=== PATIENT | female | born 1935 | race Caucasian/White ===

== ENCOUNTER 2017-07-07 15:54 | Inpatient (IN) ==
--- NOTE | 2017-07-07 16:15 | Emergency Department Report ---
Medical Clearance HPI - General Chief complaint: Medical Clearance Stated complaint: Generations Clearance Time Seen by Provider: 07/07/17 16:13 Mode of arrival: wheelchair - History of Present Illness HPI Narrative: 81-year-old female sent in from [facility] for medical clearance for generations. senior living reports "patient is paranoid, having delusions, easily distracted and has been putting towels in the toilet". complaint: medical clearance requested Home medications: Home Medications Medication Instructions Recorded Confirmed Acetaminophen 650 mg PO Q4HR PRN #0 08/30/15 07/07/17 Docusate Sodium 100 mg PO DAILY #0 08/30/15 07/07/17 LORazepam [Ativan] 0.5 mg PO TID #0 09/27/15 07/07/17 Furosemide 40 mg PO DAILY #0 11/09/15 07/07/17 Lactobacillus Acidophilus 2 cap PO TID #0 07/28/16 07/07/17 [Acidophilus Lactobacillus] Levothyroxine Sodium 175 mcg PO ACB #0 07/28/16 07/07/17 Magnesium Hydroxide [Milk of 30 ml PO Q12H PRN #0 07/28/16 07/07/17 Magnesia] Ondansetron [Ondansetron Odt] 4 mg PO Q8H PRN #0 07/30/16 07/07/17 Quetiapine Fumarate [Seroquel] 50 mg PO BID #0 tab 08/20/16 07/07/17 Ciprofloxacin HCl [Cipro] 500 mg PO BID 07/07/17 07/07/17 Previous Rx's Medication Instructions Recorded Sertraline HCl 100 mg PO DAILY 30 Days #30 tab 08/06/16 Divalproex Sodium [Depakote ER] 750 mg PO HS #20 08/30/16 Allergies/Adverse reactions: Allergies Allergy/AdvReac Type Severity Reaction Status Date / Time Penicillins Allergy Mild RASH Verified 11/18/16 01:35 cefuroxime Allergy Unknown Verified 11/18/16 01:35 Review of Systems Limitations: ROS unobtainable due to patient's medical condition PFSH Patient Stated Medical History Dementia Yes Hypertension Yes Chronic Obstructive Pulmonary Yes Disease (COPD) Diabetes Mellitus Type 2 Yes Hx Incontinence Yes Hx Urinary Tract Infection Yes Schizophrenia Yes Other Behavioral Health Yes: MAJOR DEPRESSIVE DISORDER Essential hypertension Hyperlipidemia Parkinson's disease Constipation Dementia Behavioral disturbance Hypothyroidism Diabetes type II Major depressive disorder Generalized anxiety disorder COPD O Way History of malignant neoplasm of breast Paralysis Agitans Constipation History of falls Urinary tract infection Schizophrenia Surgical History: Unable to obtain Family History: Noncontributory - Social History Housing: longterm Current occupational status: retired Physical Exam - Limitations Limitations: no limitations - General General appearance: alert, in no apparent distress - Normal Exams: Head:: Normocephalic without trauma Eyes:: No scleral icterus, irritation ENMT:: No facial trauma, nasal exudates, pharyngeal erythema Chest/Respirations:: Clear all marin, with good airflow, and symmetry bilaterally Cardiovascular:: Regular rate and rhythm, without murmur or gallop Abdomen:: Bowel sounds positive, soft, non-tender, non-distended Musculoskeletal:: No tenderness Integumentary:: No rashes Psychiatric:: appropriate attention - Neck Neck exam: Present: trachea midline - Extremities Exam Extremities exam: Present: pedal edema (1+ bilaterally) - Skin Skin exam: Present: warm, dry - Neurological Exam Neurological exam: Present: alert (to person only) - Psychiatric Psychiatric exam: Present: other (cooperative) Course Vital Signs Temperature 99.1 F 07/07/17 16:00 Respiratory Rate 84 H 07/07/17 16:00 Blood Pressure 174/72 H 07/07/17 16:00 Pulse Oximetry 90 07/07/17 16:00 Temperature 98.6 F 07/11/17 21:53 Pulse Rate 80 07/11/17 21:53 Respiratory Rate 28 H 07/11/17 21:53 Blood Pressure 120/56 07/11/17 21:53 Pulse Oximetry 93 07/11/17 21:53 Medical Clearance - MDM Narrative Medical decision making narrative: WBC unremarkabe Chemistries consistent with previous UA unremarkable CT head no acute findings Patient is medically cleared for Generations Diff. dx. UTI Delirium Depression Anxiety Dementia - Differential Diagnosis Differential Diagnosis Narrative: Diff. dx. Dementia Delirium UTI Dehydration Hyponatremia Depression - Medical Records Attestation: I reviewed the patient's medical records. - Lab Data Attestation: I reviewed the patient's lab results. Result diagrams: 07/07/17 16:37 07/10/17 07:42 Lab Results 07/07/17 07/07/17 07/07/17 Range/Units 16:30 16:30 16:30 WBC (4.5-11.0) T/MM3 RBC (4.00-5.20) M/MM3 Hgb (12-16) GM/DL Hct (36-46) % MCV (80-100) UM3 MCH (26-34) UUG MCHC (31-37) GM/DL RDW Std Deviation (36.9-50.2) FL Plt Count (130-400) T/MM3 MPV (9.4-12.4) UM3 Immature Gran % (Auto) (0.0-0.5) % Neut % (Auto) (33-66) % Lymph % (Auto) (23-45) % [place] % (Auto) (0-9.0) % Eos % (Auto) (0-4) % Baso % (Auto) (0-2) % Neut # (1.8-7.7) T/MM3 Lymph # (1-4.8) T/MM3 [place] # (0-0.8) T/MM3 Eos # (0-0.5) T/MM3 Baso # (0-0.2) T/MM3 Abs Immat Gran (auto) (0.00-0.03) T/MM3 Turbidity (0-20) Sodium (134-144) MEQ/L Potassium (3.6-5) MEQ/L Chloride (98-107) MEQ/L Carbon Dioxide (22-30) MEQ/L Anion Gap (5-15) MEQ/L BUN (7-17) MG/DL Creatinine (0.7-1.2) MG/DL GFR Calculation BUN/Creatinine Ratio (6-26) RATIO Glucose (65-110) MG/DL Hemoglobin A1c (6.1-7.9) % Calculated Osmolality (261-280) MOSM/KG Calcium (8.4-10.2) MG/DL Total Bilirubin (0.20-1.30) MG/DL Icterus Index (0-7) AST (14-36) U/L ALT (9-52) U/L Alkaline Phosphatase (38-126) U/L Total Protein (6.3-8.2) G/DL Albumin (3.5-5.0) G/DL Globulin (2.4-3.6) G/DL Albumin/Globulin Ratio (1.1-2.2) RATIO Prealbumin 22.7 (17.6-36.0) MG/DL Triglycerides 159 H (35-135) MG/DL Cholesterol 320 H (132-199) MG/DL LDL Cholesterol, Calc 254.2 H (66-159) VLDL Cholesterol 31.8 H (0-28) MG/DL HDL Cholesterol 34 L (40-60) MG/DL Cholesterol/HDL Ratio 9.4 H (0-4.0) RATIO Vitamin B12 436 (239-931) PG/ML Folate 15.1 (2.76-20) NG/ML TSH (0.47-4.68) MIU/L Specimen Hemolysis (0-25) Ur Collection Type Urine Color (YELLOW) Urine Clarity Urine pH (5.0-8.0) Ur Specific [place] (1.015-1.025) Urine Protein (NEGATIVE) Urine Glucose (UA) (NEGATIVE) Urine Ketones (NEGATIVE) Urine Occult Blood (NEGATIVE) Urine Nitrate (NEGATIVE) Urine Bilirubin (NEGATIVE) Urine Urobilinogen (NORMAL) EU/DL Ur Leukocyte Esterase (NEGATIVE) Urine RBC (0-3) /HPF Urine WBC (0-5) /HPF Ur Squamous Epith Cells Ur Transition Epith Cell /HPF Urine Bacteria (NEGATIVE) Ur Culture Indicated? RPR (NonReactive) 07/07/17 07/07/17 07/07/17 Range/Units 16:30 16:37 16:37 WBC 7.4 (4.5-11.0) T/MM3 RBC 4.69 (4.00-5.20) M/MM3 Hgb 14.2 (12-16) GM/DL Hct 43.8 (36-46) % MCV 93.4 (80-100) UM3 MCH 30.3 (26-34) UUG MCHC 32.4 (31-37) GM/DL RDW Std Deviation 53.2 H (36.9-50.2) FL Plt Count 270 (130-400) T/MM3 MPV 10.3 (9.4-12.4) UM3 Immature Gran % (Auto) 0.3 (0.0-0.5) % Neut % (Auto) 66.9 H (33-66) % Lymph % (Auto) 20.0 L (23-45) % [place] % (Auto) 10.8 H (0-9.0) % Eos % (Auto) 1.2 (0-4) % Baso % (Auto) 0.8 (0-2) % Neut # 5.0 (1.8-7.7) T/MM3 Lymph # 1.5 (1-4.8) T/MM3 [place] # 0.8 (0-0.8) T/MM3 Eos # 0.1 (0-0.5) T/MM3 Baso # 0.1 (0-0.2) T/MM3 Abs Immat Gran (auto) 0.02 (0.00-0.03) T/MM3 Turbidity < 20 (0-20) Sodium 147 H (134-144) MEQ/L Potassium 4.0 (3.6-5) MEQ/L Chloride 102 (98-107) MEQ/L Carbon Dioxide 33 H (22-30) MEQ/L Anion Gap 12 (5-15) MEQ/L BUN 24.0 H (7-17) MG/DL Creatinine 1.1 (0.7-1.2) MG/DL GFR Calculation 48 BUN/Creatinine Ratio 22 (6-26) RATIO Glucose 117 H (65-110) MG/DL Hemoglobin A1c (6.1-7.9) % Calculated Osmolality 287 H (261-280) MOSM/KG Calcium 9.6 (8.4-10.2) MG/DL Total Bilirubin 0.80 (0.20-1.30) MG/DL Icterus Index < 2 (0-7) AST 38 H (14-36) U/L ALT 40 (9-52) U/L Alkaline Phosphatase 104 (38-126) U/L Total Protein 8.5 H (6.3-8.2) G/DL Albumin 4.4 (3.5-5.0) G/DL Globulin 4.1 H (2.4-3.6) G/DL Albumin/Globulin Ratio 1.1 (1.1-2.2) RATIO Prealbumin (17.6-36.0) MG/DL Triglycerides (35-135) MG/DL Cholesterol (132-199) MG/DL LDL Cholesterol, Calc (66-159) VLDL Cholesterol (0-28) MG/DL HDL Cholesterol (40-60) MG/DL Cholesterol/HDL Ratio (0-4.0) RATIO Vitamin B12 (239-931) PG/ML Folate (2.76-20) NG/ML TSH 15.10 H (0.47-4.68) MIU/L Specimen Hemolysis < 15 (0-25) Ur Collection Type Urine Color (YELLOW) Urine Clarity Urine pH (5.0-8.0) Ur Specific [place] (1.015-1.025) Urine Protein (NEGATIVE) Urine Glucose (UA) (NEGATIVE) Urine Ketones (NEGATIVE) Urine Occult Blood (NEGATIVE) Urine Nitrate (NEGATIVE) Urine Bilirubin (NEGATIVE) Urine Urobilinogen (NORMAL) EU/DL Ur Leukocyte Esterase (NEGATIVE) Urine RBC (0-3) /HPF Urine WBC (0-5) /HPF Ur Squamous Epith Cells Ur Transition Epith Cell /HPF Urine Bacteria (NEGATIVE) Ur Culture Indicated? RPR Non-reactive (NonReactive) 07/07/17 07/07/17 Range/Units 16:37 17:39 WBC (4.5-11.0) T/MM3 RBC (4.00-5.20) M/MM3 Hgb (12-16) GM/DL Hct (36-46) % MCV (80-100) UM3 MCH (26-34) UUG MCHC (31-37) GM/DL RDW Std Deviation (36.9-50.2) FL Plt Count (130-400) T/MM3 MPV (9.4-12.4) UM3 Immature Gran % (Auto) (0.0-0.5) % Neut % (Auto) (33-66) % Lymph % (Auto) (23-45) % [place] % (Auto) (0-9.0) % Eos % (Auto) (0-4) % Baso % (Auto) (0-2) % Neut # (1.8-7.7) T/MM3 Lymph # (1-4.8) T/MM3 [place] # (0-0.8) T/MM3 Eos # (0-0.5) T/MM3 Baso # (0-0.2) T/MM3 Abs Immat Gran (auto) (0.00-0.03) T/MM3 Turbidity (0-20) Sodium (134-144) MEQ/L Potassium (3.6-5) MEQ/L Chloride (98-107) MEQ/L Carbon Dioxide (22-30) MEQ/L Anion Gap (5-15) MEQ/L BUN (7-17) MG/DL Creatinine (0.7-1.2) MG/DL GFR Calculation BUN/Creatinine Ratio (6-26) RATIO Glucose (65-110) MG/DL Hemoglobin A1c 6.5 (6.1-7.9) % Calculated Osmolality (261-280) MOSM/KG Calcium (8.4-10.2) MG/DL Total Bilirubin (0.20-1.30) MG/DL Icterus Index (0-7) AST (14-36) U/L ALT (9-52) U/L Alkaline Phosphatase (38-126) U/L Total Protein (6.3-8.2) G/DL Albumin (3.5-5.0) G/DL Globulin (2.4-3.6) G/DL Albumin/Globulin Ratio (1.1-2.2) RATIO Prealbumin (17.6-36.0) MG/DL Triglycerides (35-135) MG/DL Cholesterol (132-199) MG/DL LDL Cholesterol, Calc (66-159) VLDL Cholesterol (0-28) MG/DL HDL Cholesterol (40-60) MG/DL Cholesterol/HDL Ratio (0-4.0) RATIO Vitamin B12 (239-931) PG/ML Folate (2.76-20) NG/ML TSH (0.47-4.68) MIU/L Specimen Hemolysis (0-25) Ur Collection Type Urine, catheter Urine Color Yellow (YELLOW) Urine Clarity Clear Urine pH 8.0 (5.0-8.0) Ur Specific [place] 1.010 L (1.015-1.025) Urine Protein 1+ A (NEGATIVE) Urine Glucose (UA) Negative (NEGATIVE) Urine Ketones Trace A (NEGATIVE) Urine Occult Blood Negative (NEGATIVE) Urine Nitrate Negative (NEGATIVE) Urine Bilirubin Negative (NEGATIVE) Urine Urobilinogen 1.0 (NORMAL) EU/DL Ur Leukocyte Esterase Negative (NEGATIVE) Urine RBC None seen (0-3) /HPF Urine WBC 1-3 (0-5) /HPF Ur Squamous Epith Cells None seen Ur Transition Epith Cell 0-1 /HPF Urine Bacteria None seen (NEGATIVE) Ur Culture Indicated? Cult not indicated RPR (NonReactive) - Radiology Data Attestation: I reviewed the patient's radiology results. No acute intracranial findings (V-RAD) Disposition Clinical Impression: Medical clearance for psychiatric admission Disposition: 65 To [facility] Condition: Stable - Seen By: midlevel
[2017-07-07] MEDS ORDERED: ONDANSETRON ODT 4 MG TABLET PO PRN (18:43)
[2017-07-07] MEDS ORDERED: HALOPERIDOL 0.5 MG TABLET PO PRN (18:45)
[2017-07-07] MEDS: QUETIAPINE 50 MG TABLET PO SCH (20:04)
[2017-07-07] MEDS ORDERED: LORazepam INTENSOL 1mg/0.5ml ORAL LIQUID SL PRN (20:40)
[2017-07-07] MEDS ORDERED: HALOPERIDOL 1 MG/0.5 ML ORAL LIQUID PO PRN (20:41)
[2017-07-07] MEDS ORDERED: CIPROFLOXACIN 500 MG TABLET PO SCH (21:00)
[2017-07-07] MEDS ORDERED: LACTOBACILLUS (15B cfu) CAPSULE PO SCH (21:00)
[2017-07-07 22:54] VITALS: BMI 37.0
[2017-07-08] MEDS: LEVOTHYROXINE 175 MCG TABLET PO SCH (05:38)
--- NOTE | 2017-07-08 08:14 | CT Scan Report ---
Indication: change in mentation CT head/brain wo con: Comparison: 07/28/2016 Technique: Patient scanned without contrast with dose reduction imaging technology and brain and bone window evaluation. Findings: Patient shows no acute intracranial findings. No suggestion of hemorrhage, midline shift or mass is identified. Similar age compatible atrophic changes identified when compared to the prior study. Bone window evaluation shows no acute bony skull fractures. Visualized sinuses and mastoids were unremarkable. Impression: 1. Stable chronic deep white matter changes with no acute findings such as hemorrhage, midline shift or mass. 2. Findings were communicated to ordering clinician by the V rad service on a callback basis. .
--- NOTE | 2017-07-08 11:27 | History & Physical Report ---
<Hilda Torres - Last Filed: 07/08/17 11:18> History of Present Illness Date: 07/08/17 Chief complaint: Delusions, paranoia, hypernatremia HPI: Chapis Sesay is an 81-year-old female resident from [facility] and [facility] who presented to [facility] emergency department on 07/07/17 for evaluation of altered mental status with acute paranoia and delusions. It is reported that recently she has had increased paranoia and delusions, believing that she was being watched while going to the bathroom and stating that the police were after her. She was diagnosed with an UTI on 07/03/17 and was started on Cipro with no improvement in her behaviors. Upon arrival to the ED, vital signs revealed temperature of 99.1, heart rate 89, respiratory rate 18, blood pressure 132/95 and pulse oximetry 96% on room air. Labs were obtained and revealed WBC 7.4, hemoglobin 14.2 and platelets 270. BMP revealed hypernatremia with sodium at 147, potassium 4.0, BUN 24, SCr 1.1 and nonfasting glucose at 117. She does have a history of type II diabetes. TSH was noted to be elevated at 15.10 with a known history of hypothyroidism. Nursing reports that she picks and chooses which medications she will take which could account for her elevated TSH despite Synthroid listed as a home medication. UA was unremarkable. CT head was obtained and revealed stable chronic deep white matter changes with no acute findings. Due to her paranoia and acute behavioral changes, she underwent screening and was accepted to [facility] for further psychiatric evaluation and treatment. The hospitalist service was consulted for medication management of her chronic and uncontrolled hypothyroidism, acute hypernatremia present on admission and past medical history including hypercholesterolemia, COPD, diabetes and recent UTI. On exam, she is seen while sleeping in her room. She arouses briefly with cold touch and soft voice, but quickly falls back to sleep. She is in no apparent distress. Nursing reports that she has been pleasant since arrival and is pleased to be admitted. Cardiac exam reveals regular rate and rhythm. Lungs are clear to auscultation. Abdomen is soft, nondistended with active bowel sounds. Trace to 1+ edema noted to bilateral lower extremities with bilateral pedal pulses intact. Review of Systems Comprehensive ROS: completed and no additional positive findings except those as stated Review of systems: limited due to patient somnolence. - Constitutional Constitutional: Absent: fever(s) - EENMT Nose: Absent: nosebleeds Mouth/Throat: Absent: dry mouth - Cardiovascular Cardiovascular: Absent: chest pain, syncope Vascular: Absent: pallor of an extermity - Respiratory Respiratory: Absent: cough - Gastrointestinal Gastrointestinal: Present: constipation. Absent: vomiting - Genitourinary Menstruation: post menopausal - Musculoskeletal Musculoskeletal: Absent: deformity - Integumentary/Breasts Integumentary: Absent: rash, jaundice - Neurological Neurological: Absent: convulsions - Psychiatric Psychiatric: Present: anxiety, behavioral changes, difficulty concentrating, paranoia [facility] Patient Stated Medical History Hypercholesterolemia Hypothyroidism Dementia Hypertension COPD Diabetes,Type II Schizoaffective disorder Major Depressive disorder Parkinson's Morbid obesity Constipation Generalized anxiety disorder History of breast cancer CHF Bipolar Osteoarthritis History of UTI History of prior suicide attempt "many years ago". Surgical History: ECT in . - Social History Smoking status: Former smoker Substance use type: does not use Alcohol intake frequency: does not drink Housing: [facility] Social history: PCP - Dr. Haines. Medications Home Medications Medication Instructions Recorded Confirmed Type Acetaminophen 650 mg PO Q4HR PRN #0 08/30/15 07/07/17 History Docusate Sodium 100 mg PO DAILY #0 08/30/15 07/07/17 History LORazepam [Ativan] 0.5 mg PO TID #0 09/27/15 07/07/17 History Furosemide 40 mg PO DAILY #0 11/09/15 07/07/17 History Lactobacillus Acidophilus 2 cap PO TID #0 07/28/16 07/07/17 History [Acidophilus Lactobacillus] Levothyroxine Sodium 175 mcg PO ACB #0 07/28/16 07/07/17 History Magnesium Hydroxide [Milk of 30 ml PO Q12H PRN #0 07/28/16 07/07/17 History Magnesia] Ondansetron [Ondansetron Odt] 4 mg PO Q8H PRN #0 07/30/16 07/07/17 History Quetiapine Fumarate [Seroquel] 50 mg PO BID #0 tab 08/20/16 07/07/17 History Ciprofloxacin HCl [Cipro] 500 mg PO BID 07/07/17 07/07/17 History Allergies Allergy/AdvReac Type Severity Reaction Status Date / Time Penicillins Allergy Mild RASH Verified 11/18/16 01:35 cefuroxime Allergy Unknown Verified 11/18/16 01:35 Exam Vital Signs: Temperature 97.8 F 07/07/17 18:43 Pulse Rate 89 07/07/17 18:43 Respiratory Rate 18 07/07/17 18:43 Blood Pressure 132/95 H 07/07/17 18:43 Pulse Oximetry 96 07/07/17 18:43 Oxygen Delivery Method Room Air Height: 5 ft 1 in Weight: 196 lb 6.91 oz Body Mass Index: 37.0 - Constitutional Present: no acute distress, well nourished, well developed, morbidly obese, somnolent - Routine HEENT Exam Head: Present: normocephalic, atraumatic ENT: Present: mucous membranes moist Comments: limited exam due to patient sleeping; dentures not present on exam. - Routine Neck Exam Present: supple, trachea midline - Routine Respiratory Exam Present: CTA bilaterally. Absent: stridor, wheezes, crackles - Routine Cardiovascular Exam Present: RRR, S1, S2, no murmur - Routine Abdominal Exam Present: soft, normoactive bowel sounds, non distended - Routine Extremities Exam Present: no edema, pulses intact. Absent: cyanosis, clubbing - Routine Back/Spine/Pelvis Exam Back/Spine: Absent: erythema - Routine Skin Exam Present: dry, warm. Absent: jaundice Comments: afebrile - Routine Neurological Exam Present: moving all extremities sleeping - Routine Psychiatric Exam Comments: somnolent Results - Labs CBC & Chem 7: 07/07/17 16:37 07/07/17 16:37 Assessment and Plan (1) Dementia with behavioral disturbance Current visit: Yes Status: Acute (2) Schizoaffective disorder Current visit: Yes Status: Chronic (3) Major depressive disorder Current visit: Yes Status: Chronic (4) Generalized anxiety disorder Current visit: Yes Status: Chronic (5) Acute hypernatremia Current visit: Yes Status: Acute Resuscitation Status: Full Code Assessment and Plan: 07/08/17 Melissa. Impression: Dementia with behavioral changes, paranoia and delusions, acute, present on admission. * Agree with the admission to [facility] for continued psychiatric evaluation and treatment. Provide safe and supportive environment. PRN medications as indicated Hypernatremia, acute, present on admission. * Sodium elevated on admission at 147. Encourage oral fluid intake. Recheck BMP on 07/10 to monitor electrolytes and renal function. Monitor throughout admission. Elevated TSH, acute on chronic, present on admission. * TSH elevated at 15.10 on admission. Nursing reports that patient has been selectively choosing which meds she will be compliant with. Suspect elevation is due to medication noncompliance. Will recheck on 07/14 for down trending after consistent treatment. If TSH remains elevated, consider dose adjustment at that time. UTI, acute, present prior to admission. * UTI diagnosed on 07/03 and treatment with Cipro initiated. Culture from 07/03 showed E. coli with multiresistance to sulfa and ampicillin. Cipro to be completed on 07/10. UA on admission was unremarkable. Recommend completion of treatment to avoid resistance. Schizoaffective disorders, chronic. * Treatment per psychiatric team. Major depressive disorder, chronic. * Treatment per psychiatric team. Hypertension, chronic. * Blood pressure fairly well controlled. Continue to monitor closely. Continue home Lasix 40mg. Hypercholesterolemia, possible new diagnosis. * Lipid panel on admission revealed hypercholesterolemia with total cholesterol 320. No current home treatment. Will initiate lovastatin and recommend follow up as outpatient with PCP following discharge. Diabetes, Type II, chronic. * No home treatment listed. Will provide carb controlled diet and check A1c now to assess for glucose control. Monitor BGMs in AM and HS. COPD, chronic. * No current treatment required. Monitor respiratory function closely. CHF, chronic. * Continue home Lasix 40mg daily. Monitor closely for fluid overload and monitor daily weights. Constipation, chronic. * Continue home Colace and lactobacillus. Miralax and MOM as needed. Parkinson's, chronic. * Monitor for gait instability. Upon discharge, patient's care will be returned to her PCP. - Time spent with patient greater than 35 minutes Sepsis Assessment - Evaluation Sepsis screening result: No Definite Risk Hospital Course Summary Disclaimer: The visit summary below is not to be considered part of the above Progress Note. Hospital Course: 07/08/17 11:59 Impression: Dementia with behavioral changes, paranoia and delusions, acute, present on admission. * Agree with the admission to [facility] unit for continued psychiatric evaluation and treatment. Provide safe and supportive environment. PRN medications as indicated Hypernatremia, acute, present on admission. * Sodium elevated on admission at 147. Encourage oral fluid intake. Recheck BMP on 07/10 to monitor electrolytes and renal function. Monitor throughout admission. Elevated TSH, acute on chronic, present on admission. * TSH elevated at 15.10 on admission. Nursing reports that patient has been selectively choosing which meds she will be compliant with. Suspect elevation is due to medication noncompliance. Will recheck on 07/14 for down trending after consistent treatment. If TSH remains elevated, consider dose adjustment at that time. UTI, acute, present prior to admission. * UTI diagnosed on 07/03 and treatment with Cipro initiated. Culture from 07/03 showed E. coli with multiresistance to sulfa and ampicillin. Cipro to be completed on 07/10. UA on admission was unremarkable. Recommend completion of treatment to avoid resistance. Schizoaffective disorders, chronic. * Treatment per psychiatric team. Major depressive disorder, chronic. * Treatment per psychiatric team. Hypertension, chronic. * Blood pressure fairly well controlled. Continue to monitor closely. Continue home Lasix 40mg. Hypercholesterolemia, possible new diagnosis. * Lipid panel on admission revealed hypercholesterolemia with total cholesterol 320. No current home treatment. Will initiate lovastatin and recommend follow up as outpatient with PCP following discharge. Diabetes, Type II, chronic. * No home treatment listed. Will provide carb controlled diet and check A1c now to assess for glucose control. Monitor BGMs in AM and HS. COPD, chronic. * No current treatment required. Monitor respiratory function closely. CHF, chronic. * Continue home Lasix 40mg daily. Monitor closely for fluid overload and monitor daily weights. Constipation, chronic. * Continue home Colace and lactobacillus. Miralax and MOM as needed. Parkinson's, chronic. * Monitor for gait instability. Upon discharge, patient's care will be returned to her PCP. <Shreyas Lopez - Last Filed: 07/08/17 21:08> History of Present Illness Date: 07/08/17 [facility] Patient Stated Medical History Dementia Yes Parkinson's Disease Yes Dental Problems Yes: dentures Congestive Heart Failure Yes Hypertension Yes Chronic Obstructive Pulmonary Yes Disease (COPD) Diabetes Mellitus Type 2 Yes Hx Incontinence Yes Hx Urinary Tract Infection Yes Schizophrenia Yes Exam Vital Signs: Temperature 98.9 F 07/08/17 19:19 Pulse Rate 89 07/08/17 19:19 Respiratory Rate 14 07/08/17 19:19 Blood Pressure 135/63 07/08/17 19:19 Pulse Oximetry 91 07/08/17 19:19 Oxygen Delivery Method Room Air Height: 1.55 m Weight: 89.1 kg Results - Labs CBC & Chem 7: 07/07/17 16:37 07/07/17 16:37 Assessment and Plan (1) Dementia with behavioral disturbance Current visit: Yes Status: Acute (2) Schizoaffective disorder Current visit: Yes Status: Chronic (3) Major depressive disorder Current visit: Yes Status: Chronic (4) Generalized anxiety disorder Current visit: Yes Status: Chronic (5) Acute hypernatremia Current visit: Yes Status: Acute Assessment and Plan: Have independently interviewed and examined pt. Chart reviewed. Case discussed with my PA. Above care plan developed with my supervision; agree with above. Admitted to [facility] for behavioral changes, paranoia, and delusions. Saw patient when she was sitting in day room. Pt did keep seeing 'lights moving' - likely was the traffic exiting from [address] onto [address]. Constantly mumbling- word salad, but would be able to briefly engage in very limited conversation. Obtaining meaningful information from patient not possible at this time. Lungs: clear bilaterally. No distress on room air. CV: regular AB: soft, obese, NT/ND +BS MSE: awake, restless but not agitated. Plan: Agree with admission of patient to [facility] for further psychiatric evaluation and treatment. Psychiatry will manage and adjust psychoactive medications. Restart Thyroid medication-likely pt's nonadherence causing elevation. Uncertain if will be able to see much change in TSH levels in 1 week; but if trending downward would not recommend adjusting dose. Will need recheck TSH once patient has been faithfully on medication dose for 6 week. Urine showing no evidence of infection; with prior drug resistance noted, would be prudent to complete course of ciprofloxacin but due have concern that this medication could potentiate delirium-hope to stop as soon as able. Monitor sugars-A1c showing good overall control of blood sugars; if sugars showing stability could decrease sugar check to minimize patient discomfort. Encourage [facility] group activities. Medically stable for [facility] floor care. Hospital Course Summary Disclaimer: The visit summary below is not to be considered part of the above Progress Note.
[2017-07-08] MEDS: SERTRALINE 100 MG TABLET PO SCH (12:28)
[2017-07-08] MEDS: QUETIAPINE 50 MG TABLET PO SCH ×2 (12:28→19:37)
[2017-07-08] MEDS: LACTOBACILLUS (15B cfu) CAPSULE PO SCH ×2 (12:28→17:09)
[2017-07-08] MEDS: FUROSEMIDE 40 MG TABLET PO SCH (12:28)
[2017-07-08] MEDS: DOCUSATE SODIUM 100 MG CAPSULE PO SCH (12:28)
--- NOTE | 2017-07-08 19:06 | 24 Hour Neuropsychiatic Eval ---
Date of Admission: 07/07/17 17:41 Chief complaint: "Move" History of Present Illness: HPI: 81 Y/O CF with a hx of Schizoaffective Disorder sent from [facility] with acute mental status changes and increasing paranoia and delusions. Pt was noted to have a UTI recently but it appears the psychotic symptoms have been worsening for sometime. Nursing reports pt slept well and has had a good appetite. On face to face the pt is pleasant. She is only oriented to self. She scored a 5 on her SLUMS and is a poor historian. Her speech is disorganized and mumbled and we are unable to get an adequate hx at this time. She denies pain and does not appear to be in any distress. PAST PSYCH: Pt has a hx of Schizoaffective D/O and cognitive impairment. She is on Depakote, Seroquel, and Zoloft. She was recently on our unit for similar symptoms. [facility] Patient Stated Medical History Dementia Yes Parkinson's Disease Yes Dental Problems Yes: dentures Congestive Heart Failure Yes Hypertension Yes Chronic Obstructive Pulmonary Yes Disease (COPD) Diabetes Mellitus Type 2 Yes Hx Incontinence Yes Hx Urinary Tract Infection Yes Schizophrenia Yes Surgical History: ECT in . - Social History Smoking status: Former smoker Current residence: [facility] Review of Systems - [place] Nose: Absent: nosebleeds Mouth/Throat: Absent: dry mouth - Cardiovascular Vascular: Absent: pallor of an extermity - Genitourinary Menstruation: post menopausal - Psychiatric Psychiatric: Present: behavioral changes Mental Status Exam Vitals: Last Vital Signs Temp 99.2 F 07/08/17 16:27 Pulse 88 07/08/17 16:27 Resp 21 07/08/17 16:27 BP 133/67 07/08/17 16:27 Pulse Ox 92 07/08/17 16:27 Height: 1.55 m Weight: 89.1 kg - Mental Status Exam Muscle Strength/Tone: Normal Dressing: Casual Grooming: Good Attitude: Guarded Motor Activity: Retardation Eye Contact: Fair Speech: Slowed Volume: Soft Rhythm: Slurred Orientation: Oriented to person Mood: Neutral Affect: Bright Rate of Thoughts: Delayed Thought Organization: Disorganized Associations: Flight of Ideas Thought Content: Delusions Perception/Psychotic: Psychotic Language: Naming Impaired Fund of Knowledge: Poor fund of knowledge Memory: Poor-immediate, Poor-recent Suicidal Ideation: None Homicidal Ideation: None Insight: Poor Judgement: Poor Impulse Control: Poor - Laboratory Result Diagrams: 07/07/17 16:37 07/07/17 16:37 Assessment and Plan (1) Schizoaffective disorder Qualifiers: Schizoaffective disorder type: bipolar Qualified Code(s): F25.0 - Schizoaffective disorder, bipolar type Current visit: Yes Status: Chronic Will continue home meds at this time. Will review old records.
[2017-07-08] MEDS: LOVASTATIN 20 MG TABLET PO SCH (19:37)
[2017-07-08] MEDS: CIPROFLOXACIN 500 MG TABLET PO SCH (19:37)
[2017-07-09] MEDS: LEVOTHYROXINE 175 MCG TABLET PO SCH ×2 (06:02→07:49)
[2017-07-09] MEDS: CIPROFLOXACIN 500 MG TABLET PO SCH ×3 (06:05→20:48)
[2017-07-09] MEDS: LACTOBACILLUS (15B cfu) CAPSULE PO SCH ×3 (07:49→17:26)
[2017-07-09] MEDS: FUROSEMIDE 40 MG TABLET PO SCH ×2 (07:49→09:03)
[2017-07-09] MEDS: DOCUSATE SODIUM 100 MG CAPSULE PO SCH ×2 (07:49→09:02)
[2017-07-09] MEDS: QUETIAPINE 50 MG TABLET PO SCH ×3 (07:50→20:48)
[2017-07-09] MEDS: SERTRALINE 100 MG TABLET PO SCH ×2 (07:50→09:03)
[2017-07-09] MEDS ORDERED: Bisacodyl EC TAB 5 MG TABLET PO PRN (10:04)
--- NOTE | 2017-07-09 15:27 | XRay Report ---
Indication: mental status change PROCEDURE: XR chest 1V: Encounter: Initial Comparison: Two-view chest, 02/03/2017 Findings: There is cardiac megaly, pulmonary vascular engorgement, and diffuse interstitial changes somewhat increased relative to the chronic changes noted previously. Left side is more involved than the right. Findings are consistent with congestive heart failure with interstitial edema. Synovial osteochondromatosis of the right shoulder and degenerative changes of the bony elements. Impression: Congestive heart failure with interstitial edema. .
--- NOTE | 2017-07-09 18:49 | Neuropsych Progress Note ---
[facility] Subjective Date: 07/09/17 - Sujective/Severity of Illness Medications: Bisacodyl (Dulcolax) 10 mg PO DAILY PRN PRN Reason: Constipation Ciprofloxacin (Cipro) 500 mg PO BID/E [facility] Stop: 07/10/17 23:59 Last Admin: 07/09/17 07:48 Dose: 500 mg Divalproex Sodium (Depakote Er) 750 mg PO 2100 [facility] Last Admin: 07/08/17 19:37 Dose: 750 mg Docusate Sodium (Colace) 100 mg PO DAILY [facility] Last Admin: 07/09/17 09:02 Dose: Not Given Furosemide (Lasix) 40 mg PO DAILY [facility] Last Admin: 07/09/17 09:03 Dose: Not Given Haloperidol (Haldol) 0.5 mg PO Q6H PRN PRN Reason: Extreme agitation Haloperidol Decanoate (Haldol Liquid) 0.5 mg PO Q6H PRN PRN Reason: Anxiety/Agitation Haloperidol Lactate (Haldol) 0.5 mg IM Q6H PRN PRN Reason: Extreme agitation Lactobacillus Acidophilus (Culturelle) 2 cap PO TIDWM [facility] Last Admin: 07/09/17 17:26 Dose: 2 cap Levothyroxine Sodium (Synthroid) 175 mcg PO ACB [facility] Last Admin: 07/09/17 07:49 Dose: 175 mcg Lorazepam (Ativan) 0.5 mg PO Q6H PRN PRN Reason: Extreme agitation Lorazepam (Ativan Inj) 0.5 mg IM Q6H PRN PRN Reason: Extreme agitation Lorazepam (Ativan Intensol) 0.5 mg SL Q6H PRN PRN Reason: Anxiety/Agitation Lovastatin (Mevacor) 20 mg PO HS [facility] Last Admin: 07/08/17 19:37 Dose: 20 mg Magnesium Hydroxide (Mom) 30 ml PO DAILY PRN PRN Reason: Constipation Ondansetron HCl (Zofran Po) 4 mg PO Q8H PRN PRN Reason: NAUSEA & VOMITING Quetiapine Fumarate (Seroquel) 50 mg PO BID [facility] Last Admin: 07/09/17 09:03 Dose: Not Given Sertraline HCl (Zoloft) 100 mg PO DAILY [facility] Last Admin: 07/09/17 09:03 Dose: Not Given Subjective: Pt seen and chart examined. Nursing reports pt remains irritable and angry at times. Continues to focus on toileting. Sleeping and eating well. On face to face the pt is somewhat irritable. She is only oriented to self. Denies pain. Tolerating meds. Start Time: 17:15 Stop Time: 17:30 Mental Status Exam Vitals: Last Vital Signs Temp 99.0 F 07/09/17 16:00 Pulse 83 07/09/17 16:00 Resp 18 07/09/17 16:00 BP 122/75 07/09/17 16:00 Pulse Ox 92 07/09/17 16:00 Height: 1.55 m Weight: 88.7 kg - Mental Status Exam Muscle Strength/Tone: Normal Dressing: Casual Grooming: Good Attitude: Guarded Motor Activity: Retardation Eye Contact: Fair Speech: Slowed Volume: Soft Rhythm: Slurred Orientation: Oriented to person Mood: Neutral Rate of Thoughts: Delayed Thought Organization: Disorganized Associations: Flight of Ideas Thought Content: Delusions Perception/Psychotic: Psychotic Language: Naming Impaired Fund of Knowledge: Poor fund of knowledge Memory: Poor-immediate, Poor-recent Suicidal Ideation: None Homicidal Ideation: None Insight: Poor Judgement: Poor Impulse Control: Poor - Laboratory Result Diagrams: 07/07/17 16:37 07/07/17 16:37 Assessment and Plan (1) Schizoaffective disorder Qualifiers: Schizoaffective disorder type: bipolar Qualified Code(s): F25.0 - Schizoaffective disorder, bipolar type Current visit: Yes Status: Chronic Hospital Course Summary Disclaimer: The visit summary below is not to be considered part of the above Progress Note. Hospital Course: 07/08/17 11:59 Impression: Dementia with behavioral changes, paranoia and delusions, acute, present on admission. * Agree with the admission to [facility] unit for continued psychiatric evaluation and treatment. Provide safe and supportive environment. PRN medications as indicated Hypernatremia, acute, present on admission. * Sodium elevated on admission at 147. Encourage oral fluid intake. Recheck BMP on 07/10 to monitor electrolytes and renal function. Monitor throughout admission. Elevated TSH, acute on chronic, present on admission. * TSH elevated at 15.10 on admission. Nursing reports that patient has been selectively choosing which meds she will be compliant with. Suspect elevation is due to medication noncompliance. Will recheck on 07/14 for down trending after consistent treatment. If TSH remains elevated, consider dose adjustment at that time. UTI, acute, present prior to admission. * UTI diagnosed on 07/03 and treatment with Cipro initiated. Culture from 07/03 showed E. coli with multiresistance to sulfa and ampicillin. Cipro to be completed on 07/10. UA on admission was unremarkable. Recommend completion of treatment to avoid resistance. Schizoaffective disorders, chronic. * Treatment per psychiatric team. Major depressive disorder, chronic. * Treatment per psychiatric team. Hypertension, chronic. * Blood pressure fairly well controlled. Continue to monitor closely. Continue home Lasix 40mg. Hypercholesterolemia, possible new diagnosis. * Lipid panel on admission revealed hypercholesterolemia with total cholesterol 320. No current home treatment. Will initiate lovastatin and recommend follow up as outpatient with PCP following discharge. Diabetes, Type II, chronic. * No home treatment listed. Will provide carb controlled diet and check A1c now to assess for glucose control. Monitor BGMs in AM and HS. COPD, chronic. * No current treatment required. Monitor respiratory function closely. CHF, chronic. * Continue home Lasix 40mg daily. Monitor closely for fluid overload and monitor daily weights. Constipation, chronic. * Continue home Colace and lactobacillus. Miralax and MOM as needed. Parkinson's, chronic. * Monitor for gait instability. Upon discharge, patient's care will be returned to her PCP.
[2017-07-09] MEDS: HALOPERIDOL 5 MG/ML INJECTION IM PRN (19:46)
[2017-07-09] MEDS: LOVASTATIN 20 MG TABLET PO SCH (20:48)
[2017-07-10] MEDS: LACTOBACILLUS (15B cfu) CAPSULE PO SCH ×3 (08:39→17:04)
[2017-07-10] MEDS: CIPROFLOXACIN 500 MG TABLET PO SCH ×2 (08:39→20:05)
[2017-07-10] MEDS: LEVOTHYROXINE 175 MCG TABLET PO SCH (08:39)
[2017-07-10] MEDS: FUROSEMIDE 40 MG TABLET PO SCH (08:40)
[2017-07-10] MEDS: QUETIAPINE 50 MG TABLET PO SCH ×3 (08:40→20:08)
[2017-07-10] MEDS: DOCUSATE SODIUM 100 MG CAPSULE PO SCH (08:40)
[2017-07-10] MEDS: SERTRALINE 100 MG TABLET PO SCH (08:41)
--- NOTE | 2017-07-10 18:19 | Neuropsych Progress Note ---
Randolph Subjective Date: 07/10/17 - Sujective/Severity of Illness Medications: Bisacodyl (Dulcolax) 10 mg PO DAILY PRN PRN Reason: Constipation Ciprofloxacin (Cipro) 500 mg PO BID/E [facility] Stop: 07/10/17 23:59 Last Admin: 07/10/17 08:39 Dose: 500 mg Divalproex Sodium (Depakote Er) 750 mg PO 2100 [facility] Last Admin: 07/09/17 20:48 Dose: 750 mg Docusate Sodium (Colace) 100 mg PO DAILY [facility] Last Admin: 07/10/17 08:40 Dose: 100 mg Furosemide (Lasix) 40 mg PO DAILY [facility] Last Admin: 07/10/17 08:40 Dose: 40 mg Haloperidol (Haldol) 0.5 mg PO Q6H PRN PRN Reason: Extreme agitation Haloperidol Decanoate (Haldol Liquid) 0.5 mg PO Q6H PRN PRN Reason: Anxiety/Agitation Haloperidol Lactate (Haldol) 0.5 mg IM Q6H PRN PRN Reason: Extreme agitation Last Admin: 07/09/17 19:46 Dose: 0.5 mg Lactobacillus Acidophilus (Culturelle) 2 cap PO TIDWM [facility] Last Admin: 07/10/17 17:04 Dose: 2 cap Levothyroxine Sodium (Synthroid) 175 mcg PO ACB [facility] Last Admin: 07/10/17 08:39 Dose: 175 mcg Lorazepam (Ativan) 0.5 mg PO Q6H PRN PRN Reason: Extreme agitation Lorazepam (Ativan Inj) 0.5 mg IM Q6H PRN PRN Reason: Extreme agitation Last Admin: 07/09/17 19:46 Dose: 0.5 mg Lorazepam (Ativan Intensol) 0.5 mg SL Q6H PRN PRN Reason: Anxiety/Agitation Lovastatin (Mevacor) 20 mg PO 2100 [facility] Magnesium Hydroxide (Mom) 30 ml PO DAILY PRN PRN Reason: Constipation Ondansetron HCl (Zofran Po) 4 mg PO Q8H PRN PRN Reason: NAUSEA & VOMITING Quetiapine Fumarate (Seroquel) 50 mg PO TID [facility] Last Admin: 07/10/17 15:30 Dose: 50 mg Sertraline HCl (Zoloft) 100 mg PO DAILY [facility] Last Admin: 07/10/17 08:41 Dose: 100 mg Subjective: Pt seen and chart examined. Nursing reports pt was irritable and aggressive last evening and required Haldol and Ativan at 1950. On face to face the pt is pleasant but confused. She is only oriented to self. She is difficult to understand but does not appear to be in any distress. Denies pain. Tolerating meds Start Time: 17:30 Stop Time: 17:45 Mental Status Exam Vitals: Last Vital Signs Temp 98.7 F 07/10/17 16:00 Pulse 90 07/10/17 16:00 Resp 22 07/10/17 16:00 BP 124/57 07/10/17 16:00 Pulse Ox 92 07/10/17 16:00 Height: 1.55 m Weight: 88.7 kg - Mental Status Exam Muscle Strength/Tone: Normal Dressing: Casual Grooming: Good Attitude: Guarded Motor Activity: Retardation Eye Contact: Fair Speech: Slowed Volume: Soft Rhythm: Slurred Orientation: Oriented to person Mood: Neutral Rate of Thoughts: Delayed Thought Organization: Disorganized Associations: Flight of Ideas Thought Content: Delusions Perception/Psychotic: Psychotic Language: Naming Impaired Fund of Knowledge: Poor fund of knowledge Memory: Poor-immediate, Poor-recent Suicidal Ideation: None Homicidal Ideation: None Insight: Poor Judgement: Poor Impulse Control: Poor - Laboratory Result Diagrams: 07/07/17 16:37 07/10/17 07:42 Laboratory Results - last 24 hr 07/08/17 07/08/17 07/09/17 14:22 20:11 06:06 Turbidity Sodium Potassium Chloride Carbon Dioxide Anion Gap BUN Creatinine GFR Calculation BUN/Creatinine Ratio Glucose Glucometer 115 176 119 Calculated Osmolality Calcium Icterus Index Specimen Hemolysis 07/09/17 07/10/17 19:56 07:42 Turbidity < 20 Sodium 145 H Potassium 4.3 Chloride 102 Carbon Dioxide 32 H Anion Gap 11 BUN 29.0 H Creatinine 1.1 GFR Calculation 48 BUN/Creatinine Ratio 26 Glucose 114 H Glucometer 148 Calculated Osmolality 286 H Calcium 9.4 Icterus Index < 2 Specimen Hemolysis < 15 Assessment and Plan (1) Schizoaffective disorder Qualifiers: Schizoaffective disorder type: bipolar Qualified Code(s): F25.0 - Schizoaffective disorder, bipolar type Current visit: Yes Status: Chronic Hospital Course Summary Disclaimer: The visit summary below is not to be considered part of the above Progress Note. Hospital Course: 07/08/17 11:59 Impression: Dementia with behavioral changes, paranoia and delusions, acute, present on admission. * Agree with the admission to [facility] for continued psychiatric evaluation and treatment. Provide safe and supportive environment. PRN medications as indicated Hypernatremia, acute, present on admission. * Sodium elevated on admission at 147. Encourage oral fluid intake. Recheck BMP on 07/10 to monitor electrolytes and renal function. Monitor throughout admission. Elevated TSH, acute on chronic, present on admission. * TSH elevated at 15.10 on admission. Nursing reports that patient has been selectively choosing which meds she will be compliant with. Suspect elevation is due to medication noncompliance. Will recheck on 07/14 for down trending after consistent treatment. If TSH remains elevated, consider dose adjustment at that time. UTI, acute, present prior to admission. * UTI diagnosed on 07/03 and treatment with Cipro initiated. Culture from 07/03 showed E. coli with multiresistance to sulfa and ampicillin. Cipro to be completed on 07/10. UA on admission was unremarkable. Recommend completion of treatment to avoid resistance. Schizoaffective disorders, chronic. * Treatment per psychiatric team. Major depressive disorder, chronic. * Treatment per psychiatric team. Hypertension, chronic. * Blood pressure fairly well controlled. Continue to monitor closely. Continue home Lasix 40mg. Hypercholesterolemia, possible new diagnosis. * Lipid panel on admission revealed hypercholesterolemia with total cholesterol 320. No current home treatment. Will initiate lovastatin and recommend follow up as outpatient with PCP following discharge. Diabetes, Type II, chronic. * No home treatment listed. Will provide carb controlled diet and check A1c now to assess for glucose control. Monitor BGMs in AM and HS. COPD, chronic. * No current treatment required. Monitor respiratory function closely. CHF, chronic. * Continue home Lasix 40mg daily. Monitor closely for fluid overload and monitor daily weights. Constipation, chronic. * Continue home Colace and lactobacillus. Miralax and MOM as needed. Parkinson's, chronic. * Monitor for gait instability. Upon discharge, patient's care will be returned to her PCP. 07/10/17 18:18 Continue current care
[2017-07-10] MEDS: LOVASTATIN 20 MG TABLET PO SCH (20:06)
[2017-07-10] MEDS: HALOPERIDOL 5 MG/ML INJECTION IM PRN (21:24)
[2017-07-11] MEDS: QUETIAPINE 50 MG TABLET PO SCH ×3 (00:13→14:32)
[2017-07-11] MEDS: LACTOBACILLUS (15B cfu) CAPSULE PO SCH ×3 (08:46→17:44)
[2017-07-11] MEDS: LEVOTHYROXINE 175 MCG TABLET PO SCH (08:46)
[2017-07-11] MEDS: DOCUSATE SODIUM 100 MG CAPSULE PO SCH (08:46)
[2017-07-11] MEDS: SERTRALINE 100 MG TABLET PO SCH (08:47)
[2017-07-11] MEDS: FUROSEMIDE 40 MG TABLET PO SCH (08:47)
--- NOTE | 2017-07-11 17:50 | Neuropsych Progress Note ---
Randolph Subjective Date: 07/11/17 - Sujective/Severity of Illness Medications: Bisacodyl (Dulcolax) 10 mg PO DAILY PRN PRN Reason: Constipation Divalproex Sodium (Depakote Er) 750 mg PO 2100 [facility] Last Admin: 07/11/17 00:13 Dose: Not Given Docusate Sodium (Colace) 100 mg PO DAILY [facility] 234 [facility]S [facility] Last Admin: 07/11/17 08:46 Dose: 100 mg Furosemide (Lasix) 40 mg PO DAILY [facility] 234 [facility]S AT [facility] Last Admin: 07/11/17 08:47 Dose: 40 mg Haloperidol (Haldol) 0.5 mg PO Q6H PRN PRN Reason: Extreme agitation Haloperidol Decanoate (Haldol Liquid) 0.5 mg PO Q6H PRN PRN Reason: Anxiety/Agitation Haloperidol Lactate (Haldol) 0.5 mg IM Q6H PRN PRN Reason: Extreme agitation Last Admin: 07/10/17 21:24 Dose: 0.5 mg Lactobacillus Acidophilus (Culturelle) 2 cap PO TIDWM [facility] 234 B[facility]S [facility] Last Admin: 07/11/17 17:44 Dose: 2 cap Levothyroxine Sodium (Synthroid) 175 mcg PO ACB [facility] 234 [facility]S [facility] Last Admin: 07/11/17 08:46 Dose: 175 mcg Lorazepam (Ativan) 0.5 mg PO Q6H PRN PRN Reason: Extreme agitation Lorazepam (Ativan Inj) 0.5 mg IM Q6H PRN PRN Reason: Extreme agitation Last Admin: 07/11/17 02:14 Dose: 0.5 mg Lorazepam (Ativan Intensol) 0.5 mg SL Q6H PRN PRN Reason: Anxiety/Agitation Last Admin: 07/10/17 19:48 Dose: 0.5 mg Lovastatin (Mevacor) 20 mg PO 2100 [facility] Last Admin: 07/10/17 20:06 Dose: 20 mg Magnesium Hydroxide (Mom) 30 ml PO DAILY PRN PRN Reason: Constipation Ondansetron HCl (Zofran Po) 4 mg PO Q8H PRN PRN Reason: NAUSEA & VOMITING Quetiapine Fumarate (Seroquel) 50 mg PO BID [facility] 234 B[facility]S AT [facility] Sertraline HCl (Zoloft) 100 mg PO DAILY [facility] 234 [facility]S [facility] Last Admin: 07/11/17 08:47 Dose: 100 mg Subjective: Pt seen and chart examined. Nursing reports pt was irritable and angry last night and striking at staff. Pt was given Ativan at 1948 and Haldol at 4. Pt was later given Ativan at 0214. Pt has been doing better today. More cooperative and no behaviors noted. On face to face the pt is pleasant. She is only oriented to self. Denies any pain. Tolerating meds Start Time: 17:30 Stop Time: 17:45 Mental Status Exam Vitals: Last Vital Signs Temp 98.3 F 07/11/17 16:02 Pulse 86 07/11/17 16:02 Resp 18 07/11/17 16:02 BP 124/54 07/11/17 16:02 Pulse Ox 90 07/11/17 16:02 Height: 1.55 m Weight: 91.2 kg - Mental Status Exam Muscle Strength/Tone: Normal Dressing: Casual Grooming: Good Attitude: Guarded Motor Activity: Retardation Eye Contact: Fair Speech: Slowed Volume: Soft Rhythm: Slurred Orientation: Oriented to person Mood: Neutral Rate of Thoughts: Delayed Thought Organization: Disorganized Associations: Flight of Ideas Thought Content: Delusions Perception/Psychotic: Psychotic Language: Naming Impaired Fund of Knowledge: Poor fund of knowledge Memory: Poor-immediate, Poor-recent Suicidal Ideation: None Homicidal Ideation: None Insight: Poor Judgement: Poor Impulse Control: Poor - Laboratory Result Diagrams: 07/07/17 16:37 07/10/17 07:42 Laboratory Results - last 24 hr 07/10/17 07/11/17 20:59 02:21 Glucometer 129 127 Assessment and Plan (1) Schizoaffective disorder Qualifiers: Schizoaffective disorder type: bipolar Qualified Code(s): F25.0 - Schizoaffective disorder, bipolar type Current visit: Yes Status: Chronic Hospital Course Summary Disclaimer: The visit summary below is not to be considered part of the above Progress Note. Hospital Course: 07/08/17 11:59 Impression: Dementia with behavioral changes, paranoia and delusions, acute, present on admission. * Agree with the [facility] for continued psychiatric evaluation and treatment. Provide safe and supportive environment. PRN medications as indicated Hypernatremia, acute, present on admission. * Sodium elevated on admission at 147. Encourage oral fluid intake. Recheck BMP on 07/10 to monitor electrolytes and renal function. Monitor throughout admission. Elevated TSH, acute on chronic, present on admission. * TSH elevated at 15.10 on admission. Nursing reports that patient has been selectively choosing which meds she will be compliant with. Suspect elevation is due to medication noncompliance. Will recheck on 07/14 for down trending after consistent treatment. If TSH remains elevated, consider dose adjustment at that time. UTI, acute, present prior to admission. * UTI diagnosed on 07/03 and treatment with Cipro initiated. Culture from 07/03 showed E. coli with multiresistance to sulfa and ampicillin. Cipro to be completed on 07/10. UA on admission was unremarkable. Recommend completion of treatment to avoid resistance. Schizoaffective disorders, chronic. * Treatment per psychiatric team. Major depressive disorder, chronic. * Treatment per psychiatric team. Hypertension, chronic. * Blood pressure fairly well controlled. Continue to monitor closely. Continue home Lasix 40mg. Hypercholesterolemia, possible new diagnosis. * Lipid panel on admission revealed hypercholesterolemia with total cholesterol 320. No current home treatment. Will initiate lovastatin and recommend follow up as outpatient with PCP following discharge. Diabetes, Type II, chronic. * No home treatment listed. Will provide carb controlled diet and check A1c now to assess for glucose control. Monitor BGMs in AM and HS. COPD, chronic. * No current treatment required. Monitor respiratory function closely. CHF, chronic. * Continue home Lasix 40mg daily. Monitor closely for fluid overload and monitor daily weights. Constipation, chronic. * Continue home Colace and lactobacillus. Miralax and MOM as needed. Parkinson's, chronic. * Monitor for gait instability. Upon discharge, patient's care will be returned to her PCP. 07/10/17 18:18 Continue current care 07/11/17 17:49 Increase Seroquel to 50mg PO BID and 100mg PO QHS. Change Depakote to DR 500mg PO BID
[2017-07-11] MEDS ORDERED: QUETIAPINE 100 MG TABLET PO SCH (18:00)
[2017-07-11] MEDS: DIVALPROEX 250 MG TABLET PO SCH ×2 (19:45→20:21)
[2017-07-11] MEDS: LOVASTATIN 20 MG TABLET PO SCH (20:21)
[2017-07-11] MEDS: QUETIAPINE 100 MG TABLET PO SCH (20:21)
[2017-07-12] MEDS: LEVOTHYROXINE 175 MCG TABLET PO SCH (09:52)
[2017-07-12] MEDS: DOCUSATE SODIUM 100 MG CAPSULE PO SCH (09:53)
[2017-07-12] MEDS: SERTRALINE 100 MG TABLET PO SCH (09:53)
[2017-07-12] MEDS: LACTOBACILLUS (15B cfu) CAPSULE PO SCH ×3 (09:53→18:15)
[2017-07-12] MEDS: FUROSEMIDE 40 MG TABLET PO SCH (09:53)
[2017-07-12] MEDS: DIVALPROEX 250 MG TABLET PO SCH ×2 (09:53→20:15)
[2017-07-12] MEDS: QUETIAPINE 50 MG TABLET PO SCH ×2 (09:53→15:29)
--- NOTE | 2017-07-12 10:12 | Neuropsych Progress Note ---
Randolph Subjective Date: 07/12/17 - Sujective/Severity of Illness Medications: Bisacodyl (Dulcolax) 10 mg PO DAILY PRN PRN Reason: Constipation Divalproex Sodium (Depakote) 500 mg PO BID [facility] Last Admin: 07/12/17 09:53 Dose: 500 mg Docusate Sodium (Colace) 100 mg PO DAILY [facility] Last Admin: 07/12/17 09:53 Dose: 100 mg Furosemide (Lasix) 40 mg PO DAILY [facility] Last Admin: 07/12/17 09:53 Dose: 40 mg Haloperidol (Haldol) 0.5 mg PO Q6H PRN PRN Reason: Extreme agitation Haloperidol Decanoate (Haldol Liquid) 0.5 mg PO Q6H PRN PRN Reason: Anxiety/Agitation Haloperidol Lactate (Haldol) 0.5 mg IM Q6H PRN PRN Reason: Extreme agitation Last Admin: 07/10/17 21:24 Dose: 0.5 mg Lactobacillus Acidophilus (Culturelle) 2 cap PO TIDWM [facility] Last Admin: 07/12/17 09:53 Dose: 2 cap Levothyroxine Sodium (Synthroid) 175 mcg PO ACB [facility] Last Admin: 07/12/17 09:52 Dose: 175 mcg Lorazepam (Ativan) 0.5 mg PO Q6H PRN PRN Reason: Extreme agitation Lorazepam (Ativan Inj) 0.5 mg IM Q6H PRN PRN Reason: Extreme agitation Last Admin: 07/11/17 02:14 Dose: 0.5 mg Lorazepam (Ativan Intensol) 0.5 mg SL Q6H PRN PRN Reason: Anxiety/Agitation Last Admin: 07/10/17 19:48 Dose: 0.5 mg Lovastatin (Mevacor) 20 mg PO 2100 [facility] Last Admin: 07/11/17 20:21 Dose: 20 mg Magnesium Hydroxide (Mom) 30 ml PO DAILY PRN PRN Reason: Constipation Ondansetron HCl (Zofran Po) 4 mg PO Q8H PRN PRN Reason: NAUSEA & VOMITING Quetiapine Fumarate (Seroquel) 50 mg PO 0900,1500 [facility] Last Admin: 07/12/17 09:53 Dose: 50 mg Quetiapine Fumarate (Seroquel) 100 mg PO HS [facility] Last Admin: 07/11/17 20:21 Dose: 100 mg Sertraline HCl (Zoloft) 100 mg PO DAILY [facility] Last Admin: 07/12/17 09:53 Dose: 100 mg Subjective: Pt seen and chart examined. Nursing reports pt is doing a little better. Sleeping well and has a good appetite. No behaviors noted. On face to face the pt is pleasant. She is only oriented to self. She denies any pain and does not appear to be in any distress. Tolerating meds Start Time: 09:30 Stop Time: 09:45 Mental Status Exam Vitals: Last Vital Signs Temp 98.6 F 07/11/17 21:53 Pulse 80 07/11/17 21:53 Resp 28 H 07/11/17 21:53 BP 120/56 07/11/17 21:53 Pulse Ox 93 07/11/17 21:53 Height: 1.55 m Weight: 91.2 kg - Mental Status Exam Muscle Strength/Tone: Normal Dressing: Casual Grooming: Good Attitude: Guarded Motor Activity: Retardation Eye Contact: Fair Speech: Slowed Volume: Soft Rhythm: Slurred Orientation: Oriented to person Mood: Neutral Rate of Thoughts: Delayed Thought Organization: Disorganized Associations: Flight of Ideas Thought Content: Delusions Perception/Psychotic: Hx psychosis, not current Language: Naming Impaired Fund of Knowledge: Poor fund of knowledge Memory: Poor-immediate, Poor-recent Suicidal Ideation: None Homicidal Ideation: None Insight: Poor Judgement: Poor Impulse Control: Fair - Laboratory Result Diagrams: 07/07/17 16:37 07/10/17 07:42 Laboratory Results - last 24 hr 07/11/17 07/12/17 20:12 10:00 Glucometer 125 105 Assessment and Plan (1) Schizoaffective disorder Qualifiers: Schizoaffective disorder type: bipolar Qualified Code(s): F25.0 - Schizoaffective disorder, bipolar type Current visit: Yes Status: Chronic Hospital Course Summary Disclaimer: The visit summary below is not to be considered part of the above Progress Note. Hospital Course: 07/08/17 11:59 Impression: Dementia with behavioral changes, paranoia and delusions, acute, present on admission. * Agree with the [facility] for continued psychiatric evaluation and treatment. Provide safe and supportive environment. PRN medications as indicated Hypernatremia, acute, present on admission. * Sodium elevated on admission at 147. Encourage oral fluid intake. Recheck BMP on 07/10 to monitor electrolytes and renal function. Monitor throughout admission. Elevated TSH, acute on chronic, present on admission. * TSH elevated at 15.10 on admission. Nursing reports that patient has been selectively choosing which meds she will be compliant with. Suspect elevation is due to medication noncompliance. Will recheck on 07/14 for down trending after consistent treatment. If TSH remains elevated, consider dose adjustment at that time. UTI, acute, present prior to admission. * UTI diagnosed on 07/03 and treatment with Cipro initiated. Culture from 07/03 showed E. coli with multiresistance to sulfa and ampicillin. Cipro to be completed on 07/10. UA on admission was unremarkable. Recommend completion of treatment to avoid resistance. Schizoaffective disorders, chronic. * Treatment per psychiatric team. Major depressive disorder, chronic. * Treatment per psychiatric team. Hypertension, chronic. * Blood pressure fairly well controlled. Continue to monitor closely. Continue home Lasix 40mg. Hypercholesterolemia, possible new diagnosis. * Lipid panel on admission revealed hypercholesterolemia with total cholesterol 320. No current home treatment. Will initiate lovastatin and recommend follow up as outpatient with PCP following discharge. Diabetes, Type II, chronic. * No home treatment listed. Will provide carb controlled diet and check A1c now to assess for glucose control. Monitor BGMs in AM and HS. COPD, chronic. * No current treatment required. Monitor respiratory function closely. CHF, chronic. * Continue home Lasix 40mg daily. Monitor closely for fluid overload and monitor daily weights. Constipation, chronic. * Continue home Colace and lactobacillus. Miralax and MOM as needed. Parkinson's, chronic. * Monitor for gait instability. Upon discharge, patient's care will be returned to her PCP. 07/10/17 18:18 Continue current care 07/11/17 17:49 Increase Seroquel to 50mg PO BID and 100mg PO QHS. Change Depakote to DR 500mg PO BID 07/12/17 10:12 Continue current care
[2017-07-12] MEDS ORDERED: FUROSEMIDE 40 MG TABLET PO SCH (16:00)
--- NOTE | 2017-07-12 16:04 | Progress Note ---
Subjective: Chapis is seen in follow up. She is up in wheelchair. She is coloring pictures. Will make noises when I speak to her, but does not really answer the questions I ask. She is wheezing, but cannot tell me if she is SOA or has a cough. Chart is reviewed. Weight is up > 5kg since admit. She is currently taking her daily Lasix. Objective Vital signs: Temperature 98.3 F 07/12/17 08:00 Pulse Rate 81 07/12/17 08:00 Respiratory Rate 16 07/12/17 08:00 Blood Pressure 141/64 H 07/12/17 08:00 Pulse Oximetry 92 07/12/17 08:00 Oxygen Delivery Method Room Air Weight: 91.2 kg - Constitutional Present: no acute distress, obese, cooperative Comments: Up in wheelchair, sunglasses on. - Routine HEENT Exam Head: Present: normocephalic, atraumatic - Routine Respiratory Exam Present: dyspnea (Mild. Shallow respirations. ), wheezes (Wheezes throughout, worse upper lung marin bilaterally). Absent: respiratory distress - Routine Cardiovascular Exam Present: RRR, S1, S2, murmur - Routine Abdominal Exam Present: soft, normoactive bowel sounds, non distended, non tender - Routine Extremities Exam Present: edema (Moderate LE edema with pt sitting. ) - Routine Skin Exam Present: intact, dry, warm - Routine Neurological Exam Present: alert. Absent: oriented X3 - Routine Psychiatric Exam Present: cooperative. Absent: normal affect, normal thought process Results - Labs CBC & Chem 7: 07/07/17 16:37 07/10/17 07:42 - Impressions CXR 07/09/17 Impression: Congestive heart failure with interstitial edema. . Assessment and Plan (1) Dementia with behavioral disturbance Current visit: Yes Status: Acute (2) Schizoaffective disorder Current visit: Yes Status: Chronic (3) Major depressive disorder Current visit: Yes Status: Chronic (4) Generalized anxiety disorder Current visit: Yes Status: Chronic (5) Acute hypernatremia Current visit: Yes Status: Acute (6) CHF (congestive heart failure) Current visit: Yes Status: Chronic (7) Fluid overload Current visit: Yes Status: Acute Resuscitation Status: Full Code Assessment and Plan: 07/12/17- Patient is wheezy and appears fluid overloaded. (Diastolic HF, pEF) Will give extra dose of Lasix and single dose of KCL tonight. Repeat BMP in AM. If no improvement, consider CXR tomorrow. Add PRN albuterol for symptomatic relief. Continue remainder of medications. Screening labs ordered for Friday AM. continue Synthroid- consider recheck TSH in 2-4 weeks or prior to DC. Sepsis Assessment - Evaluation Sepsis screening result: No Definite Risk Hospital Course Summary Disclaimer: The visit summary below is not to be considered part of the above Progress Note. Hospital Course: 07/08/17 11:59 Impression: Dementia with behavioral changes, paranoia and delusions, acute, present on admission. * Agree with the [facility] for continued psychiatric evaluation and treatment. Provide safe and supportive environment. PRN medications as indicated Hypernatremia, acute, present on admission. * Sodium elevated on admission at 147. Encourage oral fluid intake. Recheck BMP on 07/10 to monitor electrolytes and renal function. Monitor throughout admission. Elevated TSH, acute on chronic, present on admission. * TSH elevated at 15.10 on admission. Nursing reports that patient has been selectively choosing which meds she will be compliant with. Suspect elevation is due to medication noncompliance. Will recheck on 07/14 for down trending after consistent treatment. If TSH remains elevated, consider dose adjustment at that time. UTI, acute, present prior to admission. * UTI diagnosed on 07/03 and treatment with Cipro initiated. Culture from 07/03 showed E. coli with multiresistance to sulfa and ampicillin. Cipro to be completed on 07/10. UA on admission was unremarkable. Recommend completion of treatment to avoid resistance. Schizoaffective disorders, chronic. * Treatment per psychiatric team. Major depressive disorder, chronic. * Treatment per psychiatric team. Hypertension, chronic. * Blood pressure fairly well controlled. Continue to monitor closely. Continue home Lasix 40mg. Hypercholesterolemia, possible new diagnosis. * Lipid panel on admission revealed hypercholesterolemia with total cholesterol 320. No current home treatment. Will initiate lovastatin and recommend follow up as outpatient with PCP following discharge. Diabetes, Type II, chronic. * No home treatment listed. Will provide carb controlled diet and check A1c now to assess for glucose control. Monitor BGMs in AM and HS. COPD, chronic. * No current treatment required. Monitor respiratory function closely. CHF, chronic. * Continue home Lasix 40mg daily. Monitor closely for fluid overload and monitor daily weights. Constipation, chronic. * Continue home Colace and lactobacillus. Miralax and MOM as needed. Parkinson's, chronic. * Monitor for gait instability. Upon discharge, patient's care will be returned to her PCP. 07/10/17 18:18 Continue current care 07/11/17 17:49 Increase Seroquel to 50mg PO BID and 100mg PO QHS. Change Depakote to DR 500mg PO BID 07/12/17 10:12 Continue current care 07/12/17 16:09 07/12/17- Patient is wheezy and appears fluid overloaded. (Diastolic HF, pEF) Will give extra dose of Lasix and single dose of KCL tonight. Repeat BMP in AM. If no improvement, consider CXR tomorrow. Add PRN albuterol for symptomatic relief. Continue remainder of medications. Screening labs ordered for Friday AM. continue Synthroid- consider recheck TSH in 2-4 weeks or prior to DC.
[2017-07-12] MEDS: QUETIAPINE 100 MG TABLET PO SCH ×2 (20:16→22:21)
[2017-07-12] MEDS: LOVASTATIN 20 MG TABLET PO SCH (20:16)
[2017-07-12] MEDS ORDERED: ACETAMINOPHEN 325 MG TABLET PO PRN (22:15)
[2017-07-12] MEDS: ACETAMINOPHEN 325 MG TABLET PO PRN (22:23)
[2017-07-13] MEDS ORDERED: FUROSEMIDE 40 MG TABLET PO ONE (06:15)
[2017-07-13] MEDS: LEVOTHYROXINE 175 MCG TABLET PO SCH (09:24)
[2017-07-13] MEDS: DIVALPROEX 250 MG TABLET PO SCH ×3 (09:25→22:21)
[2017-07-13] MEDS: LACTOBACILLUS (15B cfu) CAPSULE PO SCH ×3 (09:25→17:14)
[2017-07-13] MEDS: DOCUSATE SODIUM 100 MG CAPSULE PO SCH (09:25)
[2017-07-13] MEDS: SERTRALINE 100 MG TABLET PO SCH (09:25)
[2017-07-13] MEDS: QUETIAPINE 50 MG TABLET PO SCH ×2 (09:25→16:03)
--- NOTE | 2017-07-13 12:52 | Neuropsych Progress Note ---
[facility] Subjective Date: 07/13/17 - Sujective/Severity of Illness Medications: Acetaminophen (Tylenol) 325 - 650 mg PO Q5H PRN PRN Reason: Discomfort Last Admin: 07/12/17 22:23 Dose: 650 mg Albuterol Sulfate (Proventil Neb (0.083%)) 2.5 mg AEROSOL RTQID PRN PRN Reason: wheezing Bisacodyl (Dulcolax) 10 mg PO DAILY PRN PRN Reason: Constipation Divalproex Sodium (Depakote) 500 mg PO BID [facility] Last Admin: 07/13/17 09:25 Dose: 500 mg Docusate Sodium (Colace) 100 mg PO DAILY [facility] Last Admin: 07/13/17 09:25 Dose: 100 mg Furosemide (Lasix) 40 mg PO DAILY [facility] Last Admin: 07/12/17 09:53 Dose: 40 mg Haloperidol (Haldol) 0.5 mg PO Q6H PRN PRN Reason: Extreme agitation Haloperidol Decanoate (Haldol Liquid) 0.5 mg PO Q6H PRN PRN Reason: Anxiety/Agitation Haloperidol Lactate (Haldol) 0.5 mg IM Q6H PRN PRN Reason: Extreme agitation Last Admin: 07/10/17 21:24 Dose: 0.5 mg Lactobacillus Acidophilus (Culturelle) 2 cap PO TIDWM [facility] Last Admin: 07/13/17 09:25 Dose: 2 cap Levothyroxine Sodium (Synthroid) 175 mcg PO ACB [facility] Last Admin: 07/13/17 09:24 Dose: 175 mcg Lorazepam (Ativan) 0.5 mg PO Q6H PRN PRN Reason: Extreme agitation Lorazepam (Ativan Inj) 0.5 mg IM Q6H PRN PRN Reason: Extreme agitation Last Admin: 07/11/17 02:14 Dose: 0.5 mg Lorazepam (Ativan Intensol) 0.5 mg SL Q6H PRN PRN Reason: Anxiety/Agitation Last Admin: 07/10/17 19:48 Dose: 0.5 mg Lovastatin (Mevacor) 20 mg PO 2100 [facility] Last Admin: 07/12/17 20:16 Dose: 20 mg Magnesium Hydroxide (Mom) 30 ml PO DAILY PRN PRN Reason: Constipation Ondansetron HCl (Zofran Po) 4 mg PO Q8H PRN PRN Reason: NAUSEA & VOMITING Quetiapine Fumarate (Seroquel) 50 mg PO 0900,1500 [facility] Last Admin: 07/13/17 09:25 Dose: 50 mg Quetiapine Fumarate (Seroquel) 100 mg PO HS [facility] Last Admin: 07/12/17 22:21 Dose: Not Given Sertraline HCl (Zoloft) 100 mg PO DAILY [facility] Last Admin: 07/13/17 09:25 Dose: 100 mg Subjective: Pt seen and chart examined. Nursing reports pt was irritable last night Some paranoia and was resistive to cares. She slept well and has a good appetite. On face to face the pt is pleasant but confused. She is only oriented to self. She denies pain. Tolerating meds Start Time: 12:30 Stop Time: 12:45 Mental Status Exam Vitals: Last Vital Signs Temp 98 F 07/13/17 08:00 Pulse 82 07/13/17 08:00 Resp 20 07/13/17 08:00 BP 154/61 H 07/13/17 08:00 Pulse Ox 91 07/13/17 08:00 Height: 1.55 m Weight: 89.4 kg - Mental Status Exam Muscle Strength/Tone: Normal Dressing: Casual Grooming: Good Attitude: Guarded Motor Activity: Retardation Eye Contact: Fair Speech: Slowed Volume: Soft Rhythm: Slurred Orientation: Oriented to person Mood: Neutral Rate of Thoughts: Delayed Thought Organization: Disorganized Associations: Flight of Ideas Thought Content: Delusions Perception/Psychotic: Hx psychosis, not current Language: Naming Impaired Fund of Knowledge: Poor fund of knowledge Memory: Poor-immediate, Poor-recent Suicidal Ideation: None Homicidal Ideation: None Insight: Poor Judgement: Poor Impulse Control: Fair - Laboratory Result Diagrams: 07/07/17 16:37 07/10/17 07:42 Laboratory Results - last 24 hr 07/12/17 07/13/17 21:45 06:02 Glucometer 123 108 Assessment and Plan (1) Schizoaffective disorder Qualifiers: Schizoaffective disorder type: bipolar Qualified Code(s): F25.0 - Schizoaffective disorder, bipolar type Current visit: Yes Status: Chronic Hospital Course Summary Disclaimer: The visit summary below is not to be considered part of the above Progress Note. Hospital Course: 07/08/17 11:59 Impression: Dementia with behavioral changes, paranoia and delusions, acute, present on admission. * Agree with the admission to [facility] for continued psychiatric evaluation and treatment. Provide safe and supportive environment. PRN medications as indicated Hypernatremia, acute, present on admission. * Sodium elevated on admission at 147. Encourage oral fluid intake. Recheck BMP on 07/10 to monitor electrolytes and renal function. Monitor throughout admission. Elevated TSH, acute on chronic, present on admission. * TSH elevated at 15.10 on admission. Nursing reports that patient has been selectively choosing which meds she will be compliant with. Suspect elevation is due to medication noncompliance. Will recheck on 07/14 for down trending after consistent treatment. If TSH remains elevated, consider dose adjustment at that time. UTI, acute, present prior to admission. * UTI diagnosed on 07/03 and treatment with Cipro initiated. Culture from 07/03 showed E. coli with multiresistance to sulfa and ampicillin. Cipro to be completed on 07/10. UA on admission was unremarkable. Recommend completion of treatment to avoid resistance. Schizoaffective disorders, chronic. * Treatment per psychiatric team. Major depressive disorder, chronic. * Treatment per psychiatric team. Hypertension, chronic. * Blood pressure fairly well controlled. Continue to monitor closely. Continue home Lasix 40mg. Hypercholesterolemia, possible new diagnosis. * Lipid panel on admission revealed hypercholesterolemia with total cholesterol 320. No current home treatment. Will initiate lovastatin and recommend follow up as outpatient with PCP following discharge. Diabetes, Type II, chronic. * No home treatment listed. Will provide carb controlled diet and check A1c now to assess for glucose control. Monitor BGMs in AM and HS. COPD, chronic. * No current treatment required. Monitor respiratory function closely. CHF, chronic. * Continue home Lasix 40mg daily. Monitor closely for fluid overload and monitor daily weights. Constipation, chronic. * Continue home Colace and lactobacillus. Miralax and MOM as needed. Parkinson's, chronic. * Monitor for gait instability. Upon discharge, patient's care will be returned to her PCP. 07/10/17 18:18 Continue current care 07/11/17 17:49 Increase Seroquel to 50mg PO BID and 100mg PO QHS. Change Depakote to DR 500mg PO BID 07/12/17 10:12 Continue current care 07/12/17 16:09 07/12/17- Patient is wheezy and appears fluid overloaded. (Diastolic HF, pEF) Will give extra dose of Lasix and single dose of KCL tonight. Repeat BMP in AM. If no improvement, consider CXR tomorrow. Add PRN albuterol for symptomatic relief. Continue remainder of medications. Screening labs ordered for Friday AM. continue Synthroid- consider recheck TSH in 2-4 weeks or prior to DC. 07/13/17 12:52 Continue current care
[2017-07-13] MEDS: FUROSEMIDE 40 MG TABLET PO SCH (13:31)
[2017-07-13] MEDS: ALBUTEROL 2.5mg/3ml (0.083%) NEB AEROSOL PRN (18:05)
[2017-07-13] MEDS: QUETIAPINE 100 MG TABLET PO SCH ×2 (19:24→22:22)
[2017-07-13] MEDS: LORazepam 0.5 MG TABLET PO PRN (19:24)
[2017-07-13] MEDS: LOVASTATIN 20 MG TABLET PO SCH ×2 (19:24→22:22)
[2017-07-13] MEDS: ACETAMINOPHEN 325 MG TABLET PO PRN (20:23)
--- NOTE | 2017-07-14 10:38 | Progress Note ---
Subjective: Patient seen today sitting at the table eating breakfast. She has no complaints. Nursing staff have no concerns at this time. At last visit, she was noted to be wheezy and fluid overloaded. She was given an extra dose of Lasix on 07/12/17. Patient does not complain of cough or wheezing at this time. She has had no fever. CXR on 07/08/17 showed CHF with interstitial edema. Weight on admission was 84.3kg. Yesterday weight was 89.4kg. Highest weight throughout admission has been 91.2kg. Objective Vital signs: Temperature 97.8 F 07/13/17 19:19 Pulse Rate 95 07/13/17 19:19 Respiratory Rate 18 07/13/17 19:19 Blood Pressure 129/54 07/13/17 19:19 Pulse Oximetry 90 07/13/17 19:19 Oxygen Delivery Method Room Air Weight: 89.4 kg - Constitutional Present: no acute distress, well nourished, well developed - Routine HEENT Exam Head: Present: normocephalic, atraumatic Eye: Absent: conjunctival icterus ENT: Present: mucous membranes moist, dentition normal Comments: ptosis left eye - Routine Respiratory Exam Present: crackles (most prominent in bases but present throughout entire lung marin). Absent: accessory muscle use, respiratory distress, wheezes - Routine Cardiovascular Exam Present: RRR. Absent: murmur - Routine Abdominal Exam Present: soft, normoactive bowel sounds, non distended. Absent: tenderness - Routine Extremities Exam Present: no edema (she is wearing compression hose ), normal capillary refill - Routine Skin Exam Present: dry, warm - Routine Neurological Exam Present: alert, moving all extremities. Absent: tremors - Routine Lymphatic Exam Lymphatic: Absent: adenopathy - Routine Psychiatric Exam Present: normal affect, cooperative Results - Labs CBC & Chem 7: 07/07/17 16:37 07/13/17 14:16 - Imaging and Cardiology Chest x-ray Additional comments: CXR - 07/08/17 Impression: Congestive heart failure with interstitial edema. Assessment and Plan (1) Dementia with behavioral disturbance Current visit: Yes Status: Acute (2) Schizoaffective disorder Current visit: Yes Status: Chronic (3) Major depressive disorder Current visit: No Status: Chronic (4) Generalized anxiety disorder Current visit: No Status: Chronic (5) Acute hypernatremia Current visit: Yes Status: Acute (6) CHF (congestive heart failure) Current visit: Yes Status: Chronic (7) Fluid overload Current visit: Yes Status: Acute Assessment and Plan: Assessment Dementia with behavioral changes Hypothyroidism Schizoaffective disorder Depression Hypertension Hypercholesterolemia Type 2 diabetes COPD CHF Chronic Constipation Parkinson's disease Plan Patient has crackles and weight is up. (has diastolic HF) Will give an extra dose of Lasix today and tomorrow. (Need to change order back to daily after tomorrow if doing well.) Will need to watch watch potassium and renal function. Repeat BMP in AM. If no improvement, consider CXR. Will plan to see her again tomorrow. Sepsis Assessment - Evaluation Sepsis screening result: No Definite Risk Hospital Course Summary Disclaimer: The visit summary below is not to be considered part of the above Progress Note. Hospital Course: 07/08/17 11:59 Impression: Dementia with behavioral changes, paranoia and delusions, acute, present on admission. * Agree with the admission to [facility] for continued psychiatric evaluation and treatment. Provide safe and supportive environment. PRN medications as indicated Hypernatremia, acute, present on admission. * Sodium elevated on admission at 147. Encourage oral fluid intake. Recheck BMP on 07/10 to monitor electrolytes and renal function. Monitor throughout admission. Elevated TSH, acute on chronic, present on admission. * TSH elevated at 15.10 on admission. Nursing reports that patient has been selectively choosing which meds she will be compliant with. Suspect elevation is due to medication noncompliance. Will recheck on 07/14 for down trending after consistent treatment. If TSH remains elevated, consider dose adjustment at that time. UTI, acute, present prior to admission. * UTI diagnosed on 07/03 and treatment with Cipro initiated. Culture from 07/03 showed E. coli with multiresistance to sulfa and ampicillin. Cipro to be completed on 07/10. UA on admission was unremarkable. Recommend completion of treatment to avoid resistance. Schizoaffective disorders, chronic. * Treatment per psychiatric team. Major depressive disorder, chronic. * Treatment per psychiatric team. Hypertension, chronic. * Blood pressure fairly well controlled. Continue to monitor closely. Continue home Lasix 40mg. Hypercholesterolemia, possible new diagnosis. * Lipid panel on admission revealed hypercholesterolemia with total cholesterol 320. No current home treatment. Will initiate lovastatin and recommend follow up as outpatient with PCP following discharge. Diabetes, Type II, chronic. * No home treatment listed. Will provide carb controlled diet and check A1c now to assess for glucose control. Monitor BGMs in AM and HS. COPD, chronic. * No current treatment required. Monitor respiratory function closely. CHF, chronic. * Continue home Lasix 40mg daily. Monitor closely for fluid overload and monitor daily weights. Constipation, chronic. * Continue home Colace and lactobacillus. Miralax and MOM as needed. Parkinson's, chronic. * Monitor for gait instability. Upon discharge, patient's care will be returned to her PCP. 07/10/17 18:18 Continue current care 07/11/17 17:49 Increase Seroquel to 50mg PO BID and 100mg PO QHS. Change Depakote to DR 500mg PO BID 07/12/17 10:12 Continue current care 07/12/17 16:09 07/12/17- Patient is wheezy and appears fluid overloaded. (Diastolic HF, pEF) Will give extra dose of Lasix and single dose of KCL tonight. Repeat BMP in AM. If no improvement, consider CXR tomorrow. Add PRN albuterol for symptomatic relief. Continue remainder of medications. Screening labs ordered for Friday AM. continue Synthroid- consider recheck TSH in 2-4 weeks or prior to DC. 07/13/17 12:52 Continue current care
[2017-07-14] MEDS: LEVOTHYROXINE 175 MCG TABLET PO SCH (10:39)
[2017-07-14] MEDS: DIVALPROEX 250 MG TABLET PO SCH ×2 (10:39→20:09)
[2017-07-14] MEDS: FUROSEMIDE 40 MG TABLET PO SCH ×2 (10:40→17:42)
[2017-07-14] MEDS: DOCUSATE SODIUM 100 MG CAPSULE PO SCH (10:40)
[2017-07-14] MEDS: LACTOBACILLUS (15B cfu) CAPSULE PO SCH ×3 (10:40→17:42)
[2017-07-14] MEDS: SERTRALINE 100 MG TABLET PO SCH (10:40)
[2017-07-14] MEDS: QUETIAPINE 50 MG TABLET PO SCH ×2 (10:40→15:06)
--- NOTE | 2017-07-14 19:02 | Neuropsych Progress Note ---
[facility] Subjective Date: 07/14/17 - Sujective/Severity of Illness Medications: Acetaminophen (Tylenol) 325 - 650 mg PO Q5H PRN PRN Reason: Discomfort Last Admin: 07/13/17 20:23 Dose: 650 mg Albuterol Sulfate (Proventil Neb (0.083%)) 2.5 mg AEROSOL RTQID PRN PRN Reason: wheezing Last Admin: 07/13/17 18:05 Dose: 2.5 mg Bisacodyl (Dulcolax) 10 mg PO DAILY PRN PRN Reason: Constipation Divalproex Sodium (Depakote) 500 mg PO BID [facility] Last Admin: 07/14/17 10:39 Dose: 500 mg Docusate Sodium (Colace) 100 mg PO DAILY [facility] Last Admin: 07/14/17 10:40 Dose: 100 mg Furosemide (Lasix) 40 mg PO 0900,1700 [facility] Last Admin: 07/14/17 17:42 Dose: 40 mg Haloperidol (Haldol) 0.5 mg PO Q6H PRN PRN Reason: Extreme agitation Haloperidol Decanoate (Haldol Liquid) 0.5 mg PO Q6H PRN PRN Reason: Anxiety/Agitation Haloperidol Lactate (Haldol) 0.5 mg IM Q6H PRN PRN Reason: Extreme agitation Last Admin: 07/10/17 21:24 Dose: 0.5 mg Lactobacillus Acidophilus (Culturelle) 2 cap PO TIDWM [facility] Last Admin: 07/14/17 17:42 Dose: 2 cap Levothyroxine Sodium (Synthroid) 175 mcg PO ACB [facility] Last Admin: 07/14/17 10:39 Dose: 175 mcg Lorazepam (Ativan) 0.5 mg PO Q6H PRN PRN Reason: Extreme agitation Last Admin: 07/13/17 19:24 Dose: 0.5 mg Lorazepam (Ativan Inj) 0.5 mg IM Q6H PRN PRN Reason: Extreme agitation Last Admin: 07/11/17 02:14 Dose: 0.5 mg Lorazepam (Ativan Intensol) 0.5 mg SL Q6H PRN PRN Reason: Anxiety/Agitation Last Admin: 07/10/17 19:48 Dose: 0.5 mg Lovastatin (Mevacor) 20 mg PO 2100 [facility] Last Admin: 08/13/17 22:22 Dose: Not Given Magnesium Hydroxide (Mom) 30 ml PO DAILY PRN PRN Reason: Constipation Ondansetron HCl (Zofran Po) 4 mg PO Q8H PRN PRN Reason: NAUSEA & VOMITING Quetiapine Fumarate (Seroquel) 50 mg PO 0900,1500 [facility] Last Admin: 07/14/17 15:06 Dose: 50 mg Quetiapine Fumarate (Seroquel) 100 mg PO HS [facility] Last Admin: 07/13/17 22:22 Dose: Not Given Sertraline HCl (Zoloft) 100 mg PO DAILY [facility] Last Admin: 07/14/17 10:40 Dose: 100 mg Subjective: Pt seen and chart examined. Nursing reports pt continues to have some paranoia at night and has difficulty falling and staying asleep. Pt tends to better during the day and does better with specific staff. On face to face the pt is pleasant but confused. She is only oriented to self. She denies any pain. Tolerating meds Start Time: 17:30 Stop Time: 17:45 Mental Status Exam Vitals: Last Vital Signs Temp 97.8 F 07/14/17 16:00 Pulse 97 07/14/17 16:00 Resp 16 07/14/17 16:00 BP 107/58 07/14/17 16:00 Pulse Ox 92 07/14/17 16:00 Height: 1.55 m Weight: 89.4 kg - Mental Status Exam Muscle Strength/Tone: Normal Dressing: Casual Grooming: Good Attitude: Guarded Motor Activity: Retardation Eye Contact: Fair Speech: Slowed Volume: Soft Rhythm: Slurred Orientation: Oriented to person Mood: Neutral Rate of Thoughts: Delayed Thought Organization: Disorganized Associations: Flight of Ideas Thought Content: Delusions Perception/Psychotic: Hx psychosis, not current Language: Naming Impaired Fund of Knowledge: Poor fund of knowledge Memory: Poor-immediate, Poor-recent Suicidal Ideation: None Homicidal Ideation: None Insight: Poor Judgement: Poor Impulse Control: Fair - Laboratory Result Diagrams: 07/07/17 16:37 07/13/17 14:16 Laboratory Results - last 24 hr 07/13/17 07/14/17 20:18 05:53 Glucometer 169 110 Assessment and Plan (1) Schizoaffective disorder Qualifiers: Schizoaffective disorder type: bipolar Qualified Code(s): F25.0 - Schizoaffective disorder, bipolar type Current visit: Yes Status: Chronic Hospital Course Summary Disclaimer: The visit summary below is not to be considered part of the above Progress Note. Hospital Course: 07/08/17 11:59 Impression: Dementia with behavioral changes, paranoia and delusions, acute, present on admission. * Agree with the admission to [facility] for continued psychiatric evaluation and treatment. Provide safe and supportive environment. PRN medications as indicated Hypernatremia, acute, present on admission. * Sodium elevated on admission at 147. Encourage oral fluid intake. Recheck BMP on 07/10 to monitor electrolytes and renal function. Monitor throughout admission. Elevated TSH, acute on chronic, present on admission. * TSH elevated at 15.10 on admission. Nursing reports that patient has been selectively choosing which meds she will be compliant with. Suspect elevation is due to medication noncompliance. Will recheck on 07/14 for down trending after consistent treatment. If TSH remains elevated, consider dose adjustment at that time. UTI, acute, present prior to admission. * UTI diagnosed on 07/03 and treatment with Cipro initiated. Culture from 07/03 showed E. coli with multiresistance to sulfa and ampicillin. Cipro to be completed on 07/10. UA on admission was unremarkable. Recommend completion of treatment to avoid resistance. Schizoaffective disorders, chronic. * Treatment per psychiatric team. Major depressive disorder, chronic. * Treatment per psychiatric team. Hypertension, chronic. * Blood pressure fairly well controlled. Continue to monitor closely. Continue home Lasix 40mg. Hypercholesterolemia, possible new diagnosis. * Lipid panel on admission revealed hypercholesterolemia with total cholesterol 320. No current home treatment. Will initiate lovastatin and recommend follow up as outpatient with PCP following discharge. Diabetes, Type II, chronic. * No home treatment listed. Will provide carb controlled diet and check A1c now to assess for glucose control. Monitor BGMs in AM and HS. COPD, chronic. * No current treatment required. Monitor respiratory function closely. CHF, chronic. * Continue home Lasix 40mg daily. Monitor closely for fluid overload and monitor daily weights. Constipation, chronic. * Continue home Colace and lactobacillus. Miralax and MOM as needed. Parkinson's, chronic. * Monitor for gait instability. Upon discharge, patient's care will be returned to her PCP. 07/10/17 18:18 Continue current care 07/11/17 17:49 Increase Seroquel to 50mg PO BID and 100mg PO QHS. Change Depakote to DR 500mg PO BID 07/12/17 10:12 Continue current care 07/12/17 16:09 07/12/17- Patient is wheezy and appears fluid overloaded. (Diastolic HF, pEF) Will give extra dose of Lasix and single dose of KCL tonight. Repeat BMP in AM. If no improvement, consider CXR tomorrow. Add PRN albuterol for symptomatic relief. Continue remainder of medications. Screening labs ordered for Friday AM. continue Synthroid- consider recheck TSH in 2-4 weeks or prior to DC. 07/13/17 12:52 Continue current care 07/14/17 19:01 Increase HS Seroquel to 150mg
[2017-07-14] MEDS: QUETIAPINE 100 MG TABLET PO SCH (20:11)
[2017-07-14] MEDS: LOVASTATIN 20 MG TABLET PO SCH (20:11)
[2017-07-15] MEDS: LEVOTHYROXINE 175 MCG TABLET PO SCH ×2 (08:20→09:46)
[2017-07-15] MEDS: LACTOBACILLUS (15B cfu) CAPSULE PO SCH ×4 (08:20→17:30)
[2017-07-15] MEDS: FUROSEMIDE 40 MG TABLET PO SCH ×3 (08:21→17:30)
[2017-07-15] MEDS: DOCUSATE SODIUM 100 MG CAPSULE PO SCH ×2 (08:21→09:46)
[2017-07-15] MEDS: SERTRALINE 100 MG TABLET PO SCH ×2 (08:21→09:47)
[2017-07-15] MEDS: QUETIAPINE 50 MG TABLET PO SCH ×3 (08:21→14:50)
[2017-07-15] MEDS: DIVALPROEX 250 MG TABLET PO SCH ×3 (08:21→20:12)
--- NOTE | 2017-07-15 09:42 | Progress Note ---
<Chelo Love - Last Filed: 07/15/17 09:50> Subjective: Patient is seen eating breakfast in the day room. She is nonconversant, but willing to let me examine her. She continues to be combative and uncooperative with certain staff members. She refused to have her lab drawn this morning. She denies being short of breath. Objective Vital signs: Temperature 99.4 F 07/14/17 19:27 Pulse Rate 93 07/14/17 19:27 Respiratory Rate 22 07/14/17 19:27 Blood Pressure 120/61 07/14/17 19:27 Pulse Oximetry 90 07/14/17 19:27 Oxygen Delivery Method Room Air Weight: 89.4 kg - Constitutional Present: no acute distress, well nourished, well developed - Routine HEENT Exam Eye: Present: EOMI ENT: Present: mucous membranes moist - Routine Respiratory Exam Present: CTA bilaterally (except a few crackles heard on anterior chest.). Absent: wheezes - Routine Cardiovascular Exam Present: RRR, S1, S2. Absent: murmur - Routine Extremities Exam Present: normal capillary refill - Routine Skin Exam Present: dry, warm - Routine Neurological Exam Present: alert - Routine Lymphatic Exam Lymphatic: Absent: adenopathy - Routine Psychiatric Exam Present: cooperative Results - Labs CBC & Chem 7: 07/07/17 16:37 07/13/17 14:16 Assessment and Plan (1) Dementia with behavioral disturbance Current visit: Yes Status: Acute (2) Schizoaffective disorder Current visit: No Status: Chronic (3) Major depressive disorder Current visit: No Status: Chronic (4) Generalized anxiety disorder Current visit: No Status: Chronic (5) Acute hypernatremia Current visit: No Status: Acute (6) CHF (congestive heart failure) Current visit: Yes Status: Chronic (7) Fluid overload Current visit: Yes Status: Acute Assessment and Plan: Assessment CHF Dementia with behavioral changes Hypothyroidism Schizoaffective disorder Depression Hypertension Hypercholesterolemia Type 2 diabetes COPD Chronic Constipation Parkinson's disease Plan Patient's lungs sound better today. She is asymptomatic. Her weight and vital signs are not yet in the chart this morning. Her lab is not been drawn as she is refusing. Once her information is charted, will review and determine further plan of care. Sepsis Assessment - Evaluation Sepsis screening result: No Definite Risk Hospital Course Summary Disclaimer: The visit summary below is not to be considered part of the above Progress Note. Hospital Course: 07/08/17 11:59 Impression: Dementia with behavioral changes, paranoia and delusions, acute, present on admission. * Agree with the admission to [facility] for continued psychiatric evaluation and treatment. Provide safe and supportive environment. PRN medications as indicated Hypernatremia, acute, present on admission. * Sodium elevated on admission at 147. Encourage oral fluid intake. Recheck BMP on 07/10 to monitor electrolytes and renal function. Monitor throughout admission. Elevated TSH, acute on chronic, present on admission. * TSH elevated at 15.10 on admission. Nursing reports that patient has been selectively choosing which meds she will be compliant with. Suspect elevation is due to medication noncompliance. Will recheck on 07/14 for down trending after consistent treatment. If TSH remains elevated, consider dose adjustment at that time. UTI, acute, present prior to admission. * UTI diagnosed on 07/03 and treatment with Cipro initiated. Culture from 07/03 showed E. coli with multiresistance to sulfa and ampicillin. Cipro to be completed on 07/10. UA on admission was unremarkable. Recommend completion of treatment to avoid resistance. Schizoaffective disorders, chronic. * Treatment per psychiatric team. Major depressive disorder, chronic. * Treatment per psychiatric team. Hypertension, chronic. * Blood pressure fairly well controlled. Continue to monitor closely. Continue home Lasix 40mg. Hypercholesterolemia, possible new diagnosis. * Lipid panel on admission revealed hypercholesterolemia with total cholesterol 320. No current home treatment. Will initiate lovastatin and recommend follow up as outpatient with PCP following discharge. Diabetes, Type II, chronic. * No home treatment listed. Will provide carb controlled diet and check A1c now to assess for glucose control. Monitor BGMs in AM and HS. COPD, chronic. * No current treatment required. Monitor respiratory function closely. CHF, chronic. * Continue home Lasix 40mg daily. Monitor closely for fluid overload and monitor daily weights. Constipation, chronic. * Continue home Colace and lactobacillus. Miralax and MOM as needed. Parkinson's, chronic. * Monitor for gait instability. Upon discharge, patient's care will be returned to her PCP. 07/10/17 18:18 Continue current care 07/11/17 17:49 Increase Seroquel to 50mg PO BID and 100mg PO QHS. Change Depakote to DR Matutemg PO BID 07/12/17 10:12 Continue current care 07/12/17 16:09 07/12/17- Patient is wheezy and appears fluid overloaded. (Diastolic HF, pEF) Will give extra dose of Lasix and single dose of KCL tonight. Repeat BMP in AM. If no improvement, consider CXR tomorrow. Add PRN albuterol for symptomatic relief. Continue remainder of medications. Screening labs ordered for Friday AM. continue Synthroid- consider recheck TSH in 2-4 weeks or prior to DC. 07/13/17 12:52 Continue current care 07/14/17 19:01 Increase HS Seroquel to 150mg <Mirna Barraza - Last Filed: 07/15/17 18:19> Objective Vital signs: Temperature 98.0 F 07/15/17 16:00 Pulse Rate 90 07/15/17 16:00 Respiratory Rate 20 07/15/17 16:00 Blood Pressure 111/57 07/15/17 16:00 Pulse Oximetry 90 07/15/17 16:00 Oxygen Delivery Method Room Air Height/Weight/BMI: Height 1.55 m Weight 91.2 kg Body Mass Index 37.0 Results - Labs CBC & Chem 7: 07/15/17 14:45 07/15/17 14:45 Assessment and Plan (1) Dementia with behavioral disturbance Current visit: Yes Status: Acute (2) Schizoaffective disorder Current visit: No Status: Chronic (3) Major depressive disorder Current visit: No Status: Chronic (4) Generalized anxiety disorder Current visit: No Status: Chronic (5) Acute hypernatremia Current visit: No Status: Acute (6) CHF (congestive heart failure) Current visit: Yes Status: Chronic (7) Fluid overload Current visit: Yes Status: Acute Assessment and Plan: I have independently evaluated and examined this patient. I reviewed the chart, the patient's history, and the [employer]/PA's documented findings as above. We discussed and formulated the assessment and plan as above with additions as below: Chapis denied dyspnea, wheezing, or chest pain and was on room air when seen this evening. She doesn't think she has any swelling in her legs. Speech is relatively mumbled and little could be made out. Respirations nonlabored, diminished airflow but breath sounds clear anteriorly/ laterally Regular cardiac rhythm Trace-+1 edema bilateral ankles Weight 91.2 kg-up about 2 kg compared to recent days. Furosemide increased to twice a day dosing yesterday, continue to monitor. Potassium 3.9 today, BUN/creatinine relatively stable. Blood sugars well controlled. Hospital Course Summary Disclaimer: The visit summary below is not to be considered part of the above Progress Note.
--- NOTE | 2017-07-15 16:56 | Neuropsych Progress Note ---
[facility] Subjective Date: 07/15/17 - Sujective/Severity of Illness Medications: Acetaminophen (Tylenol) 325 - 650 mg PO Q5H PRN PRN Reason: Discomfort Last Admin: 07/13/17 20:23 Dose: 650 mg Albuterol Sulfate (Proventil Neb (0.083%)) 2.5 mg AEROSOL RTQID PRN PRN Reason: wheezing Last Admin: 07/13/17 18:05 Dose: 2.5 mg Bisacodyl (Dulcolax) 10 mg PO DAILY PRN PRN Reason: Constipation Divalproex Sodium (Depakote) 500 mg PO BID [facility] Last Admin: 07/15/17 09:47 Dose: 500 mg Docusate Sodium (Colace) 100 mg PO DAILY [facility] Last Admin: 07/15/17 09:46 Dose: 100 mg Furosemide (Lasix) 40 mg PO 0900,1700 [facility] Last Admin: 07/15/17 09:47 Dose: 40 mg Haloperidol (Haldol) 0.5 mg PO Q6H PRN PRN Reason: Extreme agitation Haloperidol Decanoate (Haldol Liquid) 0.5 mg PO Q6H PRN PRN Reason: Anxiety/Agitation Haloperidol Lactate (Haldol) 0.5 mg IM Q6H PRN PRN Reason: Extreme agitation Last Admin: 07/10/17 21:24 Dose: 0.5 mg Lactobacillus Acidophilus (Culturelle) 2 cap PO TIDWM [facility] Last Admin: 07/15/17 14:49 Dose: 2 cap Levothyroxine Sodium (Synthroid) 175 mcg PO ACB [facility] Last Admin: 07/15/17 09:46 Dose: 175 mcg Lorazepam (Ativan) 0.5 mg PO Q6H PRN PRN Reason: Extreme agitation Last Admin: 07/13/17 19:24 Dose: 0.5 mg Lorazepam (Ativan Inj) 0.5 mg IM Q6H PRN PRN Reason: Extreme agitation Last Admin: 07/11/17 02:14 Dose: 0.5 mg Lorazepam (Ativan Intensol) 0.5 mg SL Q6H PRN PRN Reason: Anxiety/Agitation Last Admin: 07/10/17 19:48 Dose: 0.5 mg Lovastatin (Mevacor) 20 mg PO 2100 [facility] Last Admin: 08/14/17 20:11 Dose: 20 mg Magnesium Hydroxide (Mom) 30 ml PO DAILY PRN PRN Reason: Constipation Ondansetron HCl (Zofran Po) 4 mg PO Q8H PRN PRN Reason: NAUSEA & VOMITING Quetiapine Fumarate (Seroquel) 50 mg PO 0900,1500 [facility] Last Admin: 07/15/17 14:50 Dose: 50 mg Quetiapine Fumarate (Seroquel) 150 mg PO HS [facility] Last Admin: 07/14/17 20:11 Dose: 150 mg Sertraline HCl (Zoloft) 100 mg PO DAILY [facility] Last Admin: 07/15/17 09:47 Dose: 100 mg Subjective: Pt seen and chart examined. Nursing reports pt can be some what irritable at times and does better with certain staff. Tends to do better during the day than at night. On face to face the pt is pleasant but confused. She is only oriented to self. She is seen laughing often. Denies any pain. Tolerating meds. Start Time: 16:15 Stop Time: 16:30 Mental Status Exam Vitals: Last Vital Signs Temp 98.0 F 07/15/17 16:00 Pulse 90 07/15/17 16:00 Resp 20 07/15/17 16:00 BP 111/57 07/15/17 16:00 Pulse Ox 90 07/15/17 16:00 Height: 1.55 m Weight: 91.2 kg - Mental Status Exam Muscle Strength/Tone: Normal Dressing: Casual Grooming: Good Attitude: Guarded Motor Activity: Retardation Eye Contact: Fair Speech: Slowed Volume: Soft Rhythm: Slurred Orientation: Oriented to person Mood: Neutral Rate of Thoughts: Delayed Thought Organization: Disorganized Associations: Flight of Ideas Thought Content: Delusions Perception/Psychotic: Hx psychosis, not current Language: Naming Impaired Fund of Knowledge: Poor fund of knowledge Memory: Poor-immediate, Poor-recent Suicidal Ideation: None Homicidal Ideation: None Insight: Poor Judgement: Poor Impulse Control: Fair - Laboratory Result Diagrams: 07/15/17 14:45 07/15/17 14:45 Laboratory Results - last 24 hr 07/14/17 07/15/17 07/15/17 21:30 05:29 14:45 WBC 7.0 RBC 4.75 Hgb 14.2 Hct 44.7 MCV 94.1 MCH 29.9 MCHC 31.8 RDW Std Deviation 54.3 H Plt Count 273 MPV 10.5 Immature Gran % (Auto) 0.6 H Neut % (Auto) 62.6 Lymph % (Auto) 23.5 [place] % (Auto) 10.4 H Eos % (Auto) 2.3 Baso % (Auto) 0.6 Neut # 4.4 Lymph # 1.7 [place] # 0.7 Eos # 0.2 Baso # 0.0 Abs Immat Gran (auto) 0.04 H Turbidity Sodium Potassium Chloride Carbon Dioxide Anion Gap BUN Creatinine GFR Calculation BUN/Creatinine Ratio Glucose Glucometer 152 128 Calculated Osmolality Calcium Icterus Index Specimen Hemolysis 07/15/17 14:45 WBC RBC Hgb Hct MCV MCH MCHC RDW Std Deviation Plt Count MPV Immature Gran % (Auto) Neut % (Auto) Lymph % (Auto) [place] % (Auto) Eos % (Auto) Baso % (Auto) Neut # Lymph # [place] # Eos # Baso # Abs Immat Gran (auto) Turbidity < 20 Sodium 142 Potassium 3.9 Chloride 95 L Carbon Dioxide 34 H Anion Gap 13 BUN 35.0 H Creatinine 1.2 GFR Calculation 43 BUN/Creatinine Ratio 29 H Glucose 122 H Glucometer Calculated Osmolality 282 H Calcium 9.1 Icterus Index < 2 Specimen Hemolysis < 15 Assessment and Plan (1) Schizoaffective disorder Qualifiers: Schizoaffective disorder type: bipolar Qualified Code(s): F25.0 - Schizoaffective disorder, bipolar type Current visit: No Status: Chronic Hospital Course Summary Disclaimer: The visit summary below is not to be considered part of the above Progress Note. Hospital Course: 07/08/17 11:59 Impression: Dementia with behavioral changes, paranoia and delusions, acute, present on admission. * Agree with the admission to [facility] for continued psychiatric evaluation and treatment. Provide safe and supportive environment. PRN medications as indicated Hypernatremia, acute, present on admission. * Sodium elevated on admission at 147. Encourage oral fluid intake. Recheck BMP on 07/10 to monitor electrolytes and renal function. Monitor throughout admission. Elevated TSH, acute on chronic, present on admission. * TSH elevated at 15.10 on admission. Nursing reports that patient has been selectively choosing which meds she will be compliant with. Suspect elevation is due to medication noncompliance. Will recheck on 07/14 for down trending after consistent treatment. If TSH remains elevated, consider dose adjustment at that time. UTI, acute, present prior to admission. * UTI diagnosed on 07/03 and treatment with Cipro initiated. Culture from 07/03 showed E. coli with multiresistance to sulfa and ampicillin. Cipro to be completed on 07/10. UA on admission was unremarkable. Recommend completion of treatment to avoid resistance. Schizoaffective disorders, chronic. * Treatment per psychiatric team. Major depressive disorder, chronic. * Treatment per psychiatric team. Hypertension, chronic. * Blood pressure fairly well controlled. Continue to monitor closely. Continue home Lasix 40mg. Hypercholesterolemia, possible new diagnosis. * Lipid panel on admission revealed hypercholesterolemia with total cholesterol 320. No current home treatment. Will initiate lovastatin and recommend follow up as outpatient with PCP following discharge. Diabetes, Type II, chronic. * No home treatment listed. Will provide carb controlled diet and check A1c now to assess for glucose control. Monitor BGMs in AM and HS. COPD, chronic. * No current treatment required. Monitor respiratory function closely. CHF, chronic. * Continue home Lasix 40mg daily. Monitor closely for fluid overload and monitor daily weights. Constipation, chronic. * Continue home Colace and lactobacillus. Miralax and MOM as needed. Parkinson's, chronic. * Monitor for gait instability. Upon discharge, patient's care will be returned to her PCP. 07/10/17 18:18 Continue current care 07/11/17 17:49 Increase Seroquel to 50mg PO BID and 100mg PO QHS. Change Depakote to DR 500mg PO BID 07/12/17 10:12 Continue current care 07/12/17 16:09 07/12/17- Patient is wheezy and appears fluid overloaded. (Diastolic HF, pEF) Will give extra dose of Lasix and single dose of KCL tonight. Repeat BMP in AM. If no improvement, consider CXR tomorrow. Add PRN albuterol for symptomatic relief. Continue remainder of medications. Screening labs ordered for Friday AM. continue Synthroid- consider recheck TSH in 2-4 weeks or prior to DC. 07/13/17 12:52 Continue current care 07/14/17 19:01 Increase HS Seroquel to 150mg 07/15/17 16:55 Continue current care
[2017-07-15] MEDS: QUETIAPINE 100 MG TABLET PO SCH (20:11)
[2017-07-15] MEDS: LOVASTATIN 20 MG TABLET PO SCH (20:12)
[2017-07-16] MEDS: QUETIAPINE 100 MG TABLET PO SCH ×2 (01:06→19:28)
[2017-07-16] MEDS: LEVOTHYROXINE 175 MCG TABLET PO SCH (10:11)
[2017-07-16] MEDS: LACTOBACILLUS (15B cfu) CAPSULE PO SCH ×3 (10:11→17:26)
[2017-07-16] MEDS: DOCUSATE SODIUM 100 MG CAPSULE PO SCH (10:11)
[2017-07-16] MEDS: DIVALPROEX 250 MG TABLET PO SCH ×2 (10:41→19:28)
[2017-07-16] MEDS: SERTRALINE 100 MG TABLET PO SCH (10:41)
[2017-07-16] MEDS: QUETIAPINE 50 MG TABLET PO SCH ×2 (10:42→14:39)
[2017-07-16] MEDS: FUROSEMIDE 40 MG TABLET PO SCH ×2 (10:46→17:26)
--- NOTE | 2017-07-16 18:17 | Neuropsych Progress Note ---
[facility] Subjective Date: 07/16/17 - Sujective/Severity of Illness Medications: Acetaminophen (Tylenol) 325 - 650 mg PO Q5H PRN PRN Reason: Discomfort Last Admin: 07/13/17 20:23 Dose: 650 mg Albuterol Sulfate (Proventil Neb (0.083%)) 2.5 mg AEROSOL RTQID PRN PRN Reason: wheezing Last Admin: 07/13/17 18:05 Dose: 2.5 mg Bisacodyl (Dulcolax) 10 mg PO DAILY PRN PRN Reason: Constipation Divalproex Sodium (Depakote) 500 mg PO BID [facility] Last Admin: 07/16/17 10:41 Dose: 500 mg Docusate Sodium (Colace) 100 mg PO DAILY [facility] Last Admin: 07/16/17 10:11 Dose: Not Given Furosemide (Lasix) 40 mg PO 0900,1700 [facility] Last Admin: 07/16/17 17:26 Dose: 40 mg Haloperidol (Haldol) 0.5 mg PO Q6H PRN PRN Reason: Extreme agitation Haloperidol Decanoate (Haldol Liquid) 0.5 mg PO Q6H PRN PRN Reason: Anxiety/Agitation Haloperidol Lactate (Haldol) 0.5 mg IM Q6H PRN PRN Reason: Extreme agitation Last Admin: 07/10/17 21:24 Dose: 0.5 mg Lactobacillus Acidophilus (Culturelle) 2 cap PO TIDWM [facility] Last Admin: 07/16/17 17:26 Dose: 2 cap Levothyroxine Sodium (Synthroid) 175 mcg PO ACB [facility] Last Admin: 07/16/17 10:11 Dose: Not Given Lorazepam (Ativan) 0.5 mg PO Q6H PRN PRN Reason: Extreme agitation Last Admin: 07/13/17 19:24 Dose: 0.5 mg Lorazepam (Ativan Inj) 0.5 mg IM Q6H PRN PRN Reason: Extreme agitation Last Admin: 07/11/17 02:14 Dose: 0.5 mg Lorazepam (Ativan Intensol) 0.5 mg SL Q6H PRN PRN Reason: Anxiety/Agitation Last Admin: 07/10/17 19:48 Dose: 0.5 mg Lovastatin (Mevacor) 20 mg PO 2100 [facility] Last Admin: 08/15/17 20:12 Dose: 20 mg Magnesium Hydroxide (Mom) 30 ml PO DAILY PRN PRN Reason: Constipation Ondansetron HCl (Zofran Po) 4 mg PO Q8H PRN PRN Reason: NAUSEA & VOMITING Quetiapine Fumarate (Seroquel) 50 mg PO 0900,1500 [facility] Last Admin: 07/16/17 14:39 Dose: 50 mg Quetiapine Fumarate (Seroquel) 150 mg PO HS [facility] Last Admin: 07/16/17 01:06 Dose: Not Given Sertraline HCl (Zoloft) 100 mg PO DAILY [facility] Last Admin: 07/16/17 10:41 Dose: 100 mg Subjective: Pt seen and chart examined. Nursing reports pt can be irritable and resistive at times but it depends on staff working with her. No behaviors noted and no PRN's given. On face to face the pt states she is doing well. She is pleasant but only oriented to self. Denies any pain. Tolerating meds Start Time: 17:45 Stop Time: 18:00 Mental Status Exam Vitals: Last Vital Signs Temp 99.2 F 07/16/17 16:00 Pulse 87 07/16/17 16:00 Resp 16 07/16/17 16:00 BP 121/60 07/16/17 16:00 Pulse Ox 93 07/16/17 16:00 Height: 1.55 m Weight: 89.9 kg - Mental Status Exam Muscle Strength/Tone: Normal Dressing: Casual Grooming: Good Attitude: Guarded Motor Activity: Retardation Eye Contact: Fair Speech: Slowed Volume: Soft Rhythm: Slurred Orientation: Oriented to person Mood: Neutral Rate of Thoughts: Delayed Thought Organization: Disorganized Associations: Flight of Ideas Thought Content: Delusions Perception/Psychotic: Hx psychosis, not current Language: Naming Impaired Fund of Knowledge: Poor fund of knowledge Memory: Poor-immediate, Poor-recent Suicidal Ideation: None Homicidal Ideation: None Insight: Poor Judgement: Poor Impulse Control: Fair - Laboratory Result Diagrams: 07/15/17 14:45 07/15/17 14:45 Laboratory Results - last 24 hr 07/15/17 20:08 Glucometer 160 Assessment and Plan (1) Schizoaffective disorder Qualifiers: Schizoaffective disorder type: bipolar Qualified Code(s): F25.0 - Schizoaffective disorder, bipolar type Current visit: No Status: Chronic Hospital Course Summary Disclaimer: The visit summary below is not to be considered part of the above Progress Note. Hospital Course: 07/08/17 11:59 Impression: Dementia with behavioral changes, paranoia and delusions, acute, present on admission. * Agree with the admission to [facility] for continued psychiatric evaluation and treatment. Provide safe and supportive environment. PRN medications as indicated Hypernatremia, acute, present on admission. * Sodium elevated on admission at 147. Encourage oral fluid intake. Recheck BMP on 07/10 to monitor electrolytes and renal function. Monitor throughout admission. Elevated TSH, acute on chronic, present on admission. * TSH elevated at 15.10 on admission. Nursing reports that patient has been selectively choosing which meds she will be compliant with. Suspect elevation is due to medication noncompliance. Will recheck on 07/14 for down trending after consistent treatment. If TSH remains elevated, consider dose adjustment at that time. UTI, acute, present prior to admission. * UTI diagnosed on 07/03 and treatment with Cipro initiated. Culture from 07/03 showed E. coli with multiresistance to sulfa and ampicillin. Cipro to be completed on 07/10. UA on admission was unremarkable. Recommend completion of treatment to avoid resistance. Schizoaffective disorders, chronic. * Treatment per psychiatric team. Major depressive disorder, chronic. * Treatment per psychiatric team. Hypertension, chronic. * Blood pressure fairly well controlled. Continue to monitor closely. Continue home Lasix 40mg. Hypercholesterolemia, possible new diagnosis. * Lipid panel on admission revealed hypercholesterolemia with total cholesterol 320. No current home treatment. Will initiate lovastatin and recommend follow up as outpatient with PCP following discharge. Diabetes, Type II, chronic. * No home treatment listed. Will provide carb controlled diet and check A1c now to assess for glucose control. Monitor BGMs in AM and HS. COPD, chronic. * No current treatment required. Monitor respiratory function closely. CHF, chronic. * Continue home Lasix 40mg daily. Monitor closely for fluid overload and monitor daily weights. Constipation, chronic. * Continue home Colace and lactobacillus. Miralax and MOM as needed. Parkinson's, chronic. * Monitor for gait instability. Upon discharge, patient's care will be returned to her PCP. 07/10/17 18:18 Continue current care 07/11/17 17:49 Increase Seroquel to 50mg PO BID and 100mg PO QHS. Change Depakote to DR 500mg PO BID 07/12/17 10:12 Continue current care 07/12/17 16:09 07/12/17- Patient is wheezy and appears fluid overloaded. (Diastolic HF, pEF) Will give extra dose of Lasix and single dose of KCL tonight. Repeat BMP in AM. If no improvement, consider CXR tomorrow. Add PRN albuterol for symptomatic relief. Continue remainder of medications. Screening labs ordered for Friday AM. continue Synthroid- consider recheck TSH in 2-4 weeks or prior to DC. 07/13/17 12:52 Continue current care 07/14/17 19:01 Increase HS Seroquel to 150mg 07/15/17 16:55 Continue current care 07/16/17 18:16 Pt continues to be irritable at times but improving. Will continue current meds
[2017-07-16] MEDS: LOVASTATIN 20 MG TABLET PO SCH (19:29)
[2017-07-16] MEDS: LORazepam 0.5 MG TABLET PO PRN (19:29)
[2017-07-17] MEDS: DIVALPROEX 250 MG TABLET PO SCH ×3 (00:05→20:18)
[2017-07-17] MEDS: LOVASTATIN 20 MG TABLET PO SCH ×2 (00:05→20:19)
[2017-07-17] MEDS: QUETIAPINE 100 MG TABLET PO SCH ×2 (00:06→20:19)
[2017-07-17] MEDS: LEVOTHYROXINE 175 MCG TABLET PO SCH (10:21)
[2017-07-17] MEDS: LACTOBACILLUS (15B cfu) CAPSULE PO SCH ×3 (10:21→17:43)
[2017-07-17] MEDS: DOCUSATE SODIUM 100 MG CAPSULE PO SCH (10:21)
[2017-07-17] MEDS: QUETIAPINE 50 MG TABLET PO SCH ×2 (10:22→15:18)
[2017-07-17] MEDS: FUROSEMIDE 40 MG TABLET PO SCH ×2 (10:22→17:43)
[2017-07-17] MEDS: SERTRALINE 100 MG TABLET PO SCH (10:22)
--- NOTE | 2017-07-17 19:15 | Neuropsych Progress Note ---
[facility] Subjective Date: 07/17/17 - Sujective/Severity of Illness Medications: Acetaminophen (Tylenol) 325 - 650 mg PO Q5H PRN PRN Reason: Discomfort Last Admin: 07/13/17 20:23 Dose: 650 mg Albuterol Sulfate (Proventil Neb (0.083%)) 2.5 mg AEROSOL RTQID PRN PRN Reason: wheezing Last Admin: 07/13/17 18:05 Dose: 2.5 mg Bisacodyl (Dulcolax) 10 mg PO DAILY PRN PRN Reason: Constipation Divalproex Sodium (Depakote) 500 mg PO BID [facility] Last Admin: 07/17/17 10:21 Dose: 500 mg Docusate Sodium (Colace) 100 mg PO DAILY [facility] Last Admin: 07/17/17 10:21 Dose: 100 mg Furosemide (Lasix) 40 mg PO 0900,1700 [facility] Last Admin: 07/17/17 17:43 Dose: 40 mg Haloperidol (Haldol) 0.5 mg PO Q6H PRN PRN Reason: Extreme agitation Haloperidol Decanoate (Haldol Liquid) 0.5 mg PO Q6H PRN PRN Reason: Anxiety/Agitation Haloperidol Lactate (Haldol) 0.5 mg IM Q6H PRN PRN Reason: Extreme agitation Last Admin: 07/10/17 21:24 Dose: 0.5 mg Lactobacillus Acidophilus (Culturelle) 2 cap PO TIDWM [facility] Last Admin: 07/17/17 17:43 Dose: 2 cap Levothyroxine Sodium (Synthroid) 175 mcg PO ACB [facility] Last Admin: 07/17/17 10:21 Dose: 175 mcg Lorazepam (Ativan) 0.5 mg PO Q6H PRN PRN Reason: Extreme agitation Last Admin: 07/16/17 19:29 Dose: 0.5 mg Lorazepam (Ativan Inj) 0.5 mg IM Q6H PRN PRN Reason: Extreme agitation Last Admin: 07/11/17 02:14 Dose: 0.5 mg Lorazepam (Ativan Intensol) 0.5 mg SL Q6H PRN PRN Reason: Anxiety/Agitation Last Admin: 07/10/17 19:48 Dose: 0.5 mg Lovastatin (Mevacor) 20 mg PO 2100 [facility] Last Admin: 07/17/17 00:05 Dose: Not Given Magnesium Hydroxide (Mom) 30 ml PO DAILY PRN PRN Reason: Constipation Ondansetron HCl (Zofran Po) 4 mg PO Q8H PRN PRN Reason: NAUSEA & VOMITING Quetiapine Fumarate (Seroquel) 50 mg PO 0900,1500 [facility] Last Admin: 07/17/17 15:18 Dose: 50 mg Quetiapine Fumarate (Seroquel) 150 mg PO HS [facility] Last Admin: 07/17/17 00:06 Dose: Not Given Sertraline HCl (Zoloft) 100 mg PO DAILY [facility] Last Admin: 07/17/17 10:22 Dose: 100 mg Subjective: Pt seen and chart examined. Nursing reports pt can be irritable and resistive at times but it depends on staff working with her. No behaviors noted and no PRN's given. On face to face the pt is pleasant but confused. She is only oriented to self. Denies any pain. Tolerating meds. Start Time: 18:45 Stop Time: 19:00 Mental Status Exam Vitals: Last Vital Signs Temp 97.2 F 07/17/17 16:47 Pulse 93 07/17/17 16:47 Resp 16 07/17/17 16:47 BP 111/55 07/17/17 16:47 Pulse Ox 90 07/17/17 16:47 Height: 1.55 m Weight: 89.9 kg - Mental Status Exam Muscle Strength/Tone: Normal Dressing: Casual Grooming: Good Attitude: Guarded Motor Activity: Retardation Eye Contact: Fair Speech: Slowed Volume: Soft Rhythm: Slurred Orientation: Oriented to person Mood: Neutral Rate of Thoughts: Delayed Thought Organization: Disorganized Associations: Flight of Ideas Thought Content: Delusions Perception/Psychotic: Hx psychosis, not current Language: Naming Impaired Fund of Knowledge: Poor fund of knowledge Memory: Poor-immediate, Poor-recent Suicidal Ideation: None Homicidal Ideation: None Insight: Poor Judgement: Poor Impulse Control: Fair - Laboratory Result Diagrams: 07/15/17 14:45 07/15/17 14:45 Laboratory Results - last 24 hr 07/16/17 20:38 Glucometer 161 Assessment and Plan (1) Schizoaffective disorder Qualifiers: Schizoaffective disorder type: bipolar Qualified Code(s): F25.0 - Schizoaffective disorder, bipolar type Current visit: No Status: Chronic Hospital Course Summary Disclaimer: The visit summary below is not to be considered part of the above Progress Note. Hospital Course: 07/08/17 11:59 Impression: Dementia with behavioral changes, paranoia and delusions, acute, present on admission. * Agree with the admission to [facility] for continued psychiatric evaluation and treatment. Provide safe and supportive environment. PRN medications as indicated Hypernatremia, acute, present on admission. * Sodium elevated on admission at 147. Encourage oral fluid intake. Recheck BMP on 07/10 to monitor electrolytes and renal function. Monitor throughout admission. Elevated TSH, acute on chronic, present on admission. * TSH elevated at 15.10 on admission. Nursing reports that patient has been selectively choosing which meds she will be compliant with. Suspect elevation is due to medication noncompliance. Will recheck on 07/14 for down trending after consistent treatment. If TSH remains elevated, consider dose adjustment at that time. UTI, acute, present prior to admission. * UTI diagnosed on 07/03 and treatment with Cipro initiated. Culture from 07/03 showed E. coli with multiresistance to sulfa and ampicillin. Cipro to be completed on 07/10. UA on admission was unremarkable. Recommend completion of treatment to avoid resistance. Schizoaffective disorders, chronic. * Treatment per psychiatric team. Major depressive disorder, chronic. * Treatment per psychiatric team. Hypertension, chronic. * Blood pressure fairly well controlled. Continue to monitor closely. Continue home Lasix 40mg. Hypercholesterolemia, possible new diagnosis. * Lipid panel on admission revealed hypercholesterolemia with total cholesterol 320. No current home treatment. Will initiate lovastatin and recommend follow up as outpatient with PCP following discharge. Diabetes, Type II, chronic. * No home treatment listed. Will provide carb controlled diet and check A1c now to assess for glucose control. Monitor BGMs in AM and HS. COPD, chronic. * No current treatment required. Monitor respiratory function closely. CHF, chronic. * Continue home Lasix 40mg daily. Monitor closely for fluid overload and monitor daily weights. Constipation, chronic. * Continue home Colace and lactobacillus. Miralax and MOM as needed. Parkinson's, chronic. * Monitor for gait instability. Upon discharge, patient's care will be returned to her PCP. 07/10/17 18:18 Continue current care 07/11/17 17:49 Increase Seroquel to 50mg PO BID and 100mg PO QHS. Change Depakote to DR 500mg PO BID 07/12/17 10:12 Continue current care 07/12/17 16:09 07/12/17- Patient is wheezy and appears fluid overloaded. (Diastolic HF, pEF) Will give extra dose of Lasix and single dose of KCL tonight. Repeat BMP in AM. If no improvement, consider CXR tomorrow. Add PRN albuterol for symptomatic relief. Continue remainder of medications. Screening labs ordered for Friday AM. continue Synthroid- consider recheck TSH in 2-4 weeks or prior to DC. 07/13/17 12:52 Continue current care 07/14/17 19:01 Increase HS Seroquel to 150mg 07/15/17 16:55 Continue current care 07/16/17 18:16 Pt continues to be irritable at times but improving. Will continue current meds 07/17/17 19:15 Improving but still remains irritable at times. Will continue current meds
[2017-07-18] MEDS: ACETAMINOPHEN 325 MG TABLET PO PRN (00:16)
[2017-07-18] MEDS: LEVOTHYROXINE 175 MCG TABLET PO SCH (10:25)
[2017-07-18] MEDS: FUROSEMIDE 40 MG TABLET PO SCH ×2 (10:27→17:41)
[2017-07-18] MEDS: DIVALPROEX 250 MG TABLET PO SCH ×2 (10:27→20:38)
[2017-07-18] MEDS: DOCUSATE SODIUM 100 MG CAPSULE PO SCH (10:27)
[2017-07-18] MEDS: LACTOBACILLUS (15B cfu) CAPSULE PO SCH ×3 (10:27→17:41)
[2017-07-18] MEDS: QUETIAPINE 50 MG TABLET PO SCH ×2 (10:28→15:13)
[2017-07-18] MEDS: SERTRALINE 100 MG TABLET PO SCH (10:28)
--- NOTE | 2017-07-18 14:12 | Progress Note ---
<ErlindaInez Korina - Last Filed: 07/18/17 14:09> Subjective: Chapis was seen after lunch. She was in no acute distress. She reports a mild chronic cough but no chest pain or dyspnea. She complains of abdominal discomfort and bloating. She denied any burning on urination or changes in urination. She is incontinent. Nursing staff report cloudy and malodorous urine. Objective Vital signs: Temperature 97.8 F 07/18/17 08:00 Pulse Rate 89 07/18/17 08:00 Respiratory Rate 16 07/18/17 08:00 Blood Pressure 128/63 07/18/17 08:00 Pulse Oximetry 94 07/18/17 08:00 Oxygen Delivery Method Room Air Oxygen Flow Rate 2 Height/Weight/BMI: Height 1.55 m Weight 89.9 kg Body Mass Index 37.0 - Constitutional Present: no acute distress, well nourished, well developed, obese - Routine HEENT Exam ENT: Present: mucous membranes moist, oropharynx clear - Routine Respiratory Exam Present: crackles (bibasilar) - Routine Cardiovascular Exam Present: S1, S2 - Routine Abdominal Exam Present: normoactive bowel sounds, non tender, distended (mild) - Routine Extremities Exam Present: edema (trace b/l; ja hose on b/l) - Routine Skin Exam Present: intact, dry, warm - Routine Neurological Exam Present: alert - Routine Psychiatric Exam Present: normal affect, cooperative Results - Labs CBC & Chem 7: 07/15/17 14:45 07/15/17 14:45 Microbiology Results: Microbiology 07/17/17 22:15 Urine, Voided (Cc/notcc) Urine Culture - Preliminary Escherichia coli Assessment and Plan (1) Dementia with behavioral disturbance Current visit: Yes Status: Acute (2) Schizoaffective disorder Current visit: No Status: Chronic (3) Major depressive disorder Current visit: No Status: Chronic (4) Generalized anxiety disorder Current visit: No Status: Chronic (5) Acute hypernatremia Current visit: No Status: Acute (6) CHF (congestive heart failure) Current visit: Yes Status: Chronic (7) Fluid overload Current visit: Yes Status: Acute Resuscitation Status: Full Code Assessment and Plan: Impression Fluid overload; CHF Dementia with behavioral changes, paranoia and delusions, acute, present on admission. Hypernatremia, acute, present on admission. Resolved. Elevated TSH, acute on chronic, present on admission. 15.10 on admission. N UTI, acute, present prior to admission. Cx from 07/17/17 also growing out E. coli. Schizoaffective disorders, chronic. Major depressive disorder, chronic. Hypertension, chronic. Hypercholesterolemia, possible new diagnosis. Diabetes, Type II, chronic. COPD, chronic. Constipation, chronic. Parkinson's, chronic. Plan CHF; rales on exam - repeat CXR now to f/u on previous abnormal one showing interstitial edema. Lasix was increased to BID on 07/14 - will repeat BMP now to reassess electrolytes. UTI - Cx again is growing out E. coli. She denies symptoms; she has no leukocytosis or fever. CrCl is only 23, which limits abx choices further if we would decide to treat. At this time will continue to monitor rather than initiating treatment. Repeat TSH. Sepsis Assessment - Evaluation Sepsis screening result: No Definite Risk Hospital Course Summary Disclaimer: The visit summary below is not to be considered part of the above Progress Note. Hospital Course: 07/08/17 11:59 Impression: Dementia with behavioral changes, paranoia and delusions, acute, present on admission. * Agree with the admission to [facility] for continued psychiatric evaluation and treatment. Provide safe and supportive environment. PRN medications as indicated Hypernatremia, acute, present on admission. * Sodium elevated on admission at 147. Encourage oral fluid intake. Recheck BMP on 07/10 to monitor electrolytes and renal function. Monitor throughout admission. Elevated TSH, acute on chronic, present on admission. * TSH elevated at 15.10 on admission. Nursing reports that patient has been selectively choosing which meds she will be compliant with. Suspect elevation is due to medication noncompliance. Will recheck on 07/14 for down trending after consistent treatment. If TSH remains elevated, consider dose adjustment at that time. UTI, acute, present prior to admission. * UTI diagnosed on 07/03 and treatment with Cipro initiated. Culture from 07/03 showed E. coli with multiresistance to sulfa and ampicillin. Cipro to be completed on 07/10. UA on admission was unremarkable. Recommend completion of treatment to avoid resistance. Schizoaffective disorders, chronic. * Treatment per psychiatric team. Major depressive disorder, chronic. * Treatment per psychiatric team. Hypertension, chronic. * Blood pressure fairly well controlled. Continue to monitor closely. Continue home Lasix 40mg. Hypercholesterolemia, possible new diagnosis. * Lipid panel on admission revealed hypercholesterolemia with total cholesterol 320. No current home treatment. Will initiate lovastatin and recommend follow up as outpatient with PCP following discharge. Diabetes, Type II, chronic. * No home treatment listed. Will provide carb controlled diet and check A1c now to assess for glucose control. Monitor BGMs in AM and HS. COPD, chronic. * No current treatment required. Monitor respiratory function closely. CHF, chronic. * Continue home Lasix 40mg daily. Monitor closely for fluid overload and monitor daily weights. Constipation, chronic. * Continue home Colace and lactobacillus. Miralax and MOM as needed. Parkinson's, chronic. * Monitor for gait instability. Upon discharge, patient's care will be returned to her PCP. 07/10/17 18:18 Continue current care 07/11/17 17:49 Increase Seroquel to 50mg PO BID and 100mg PO QHS. Change Depakote to DR 500mg PO BID 07/12/17 10:12 Continue current care 07/12/17 16:09 07/12/17- Patient is wheezy and appears fluid overloaded. (Diastolic HF, pEF) Will give extra dose of Lasix and single dose of KCL tonight. Repeat BMP in AM. If no improvement, consider CXR tomorrow. Add PRN albuterol for symptomatic relief. Continue remainder of medications. Screening labs ordered for Friday AM. continue Synthroid- consider recheck TSH in 2-4 weeks or prior to DC. 07/13/17 12:52 Continue current care 07/14/17 19:01 Increase HS Seroquel to 150mg 07/15/17 16:55 Continue current care 07/16/17 18:16 Pt continues to be irritable at times but improving. Will continue current meds 07/17/17 19:15 Improving but still remains irritable at times. Will continue current meds 07/18/17 CHF; rales on exam - repeat CXR now to f/u on previous abnormal one showing interstitial edema. Lasix was increased to BID on 07/14 - will repeat BMP now to reassess electrolytes. UTI - Cx again is growing out E. coli. She denies symptoms; she has no leukocytosis or fever. CrCl is only 23, which limits abx choices further if we would decide to treat. At this time will continue to monitor rather than initiating treatment. Repeat TSH. <MaksimJackeline Cynthia - Last Filed: 07/18/17 17:52> Objective Vital signs: Temperature 99.0 F 07/18/17 16:00 Pulse Rate 92 07/18/17 16:00 Respiratory Rate 18 07/18/17 16:00 Blood Pressure 107/52 07/18/17 16:00 Pulse Oximetry 94 07/18/17 16:00 Oxygen Delivery Method Room Air Oxygen Flow Rate 2 Height/Weight/BMI: Height 1.55 m Weight 89.9 kg Body Mass Index 37.0 Results - Labs CBC & Chem 7: 07/15/17 14:45 07/15/17 14:45 Microbiology Results: Microbiology 07/17/17 22:15 Urine, Voided (Cc/notcc) Urine Culture - Preliminary Escherichia coli Assessment and Plan (1) Dementia with behavioral disturbance Current visit: Yes Status: Acute (2) Schizoaffective disorder Current visit: No Status: Chronic (3) Major depressive disorder Current visit: No Status: Chronic (4) Generalized anxiety disorder Current visit: No Status: Chronic (5) Acute hypernatremia Current visit: No Status: Acute (6) CHF (congestive heart failure) Current visit: Yes Status: Chronic (7) Fluid overload Current visit: Yes Status: Acute Assessment and Plan: 07/18/2017-I reviewed this chart, the patient history, and the OFFICE COMMUNICATION PROFESSOR's/PA's documented findings as above. We discussed and formulated the assessment and plan as above with the additions below.-Dr. Schaeffer I saw the patient in the day room. She was sitting in her wheelchair. She states sometimes her abdomen hurts at 3 AM but does not hurt now. She denies any shortness of breath. She denies any pain now. She states sometimes she has pain with urination. She states her appetite is been good. On exam she is alert and in no acute distress. Cardiovascular reveals a regular rate and rhythm. Chest reveals some mild coarse breath sounds and minimal crackles in the bases. Abdomen is soft and nontender with positive bowel sounds. Extremities reveal trace edema. Regarding UTI with Escherichia coli, she is allergic to penicillin and cephalosporins. Will start Bactrim DS 1 by mouth twice a day for 3 days. Sensitivities are pending. Hospital Course Summary Disclaimer: The visit summary below is not to be considered part of the above Progress Note.
--- NOTE | 2017-07-18 15:51 | XRay Report ---
Indication: f/u CHF; bilateral crackles PROCEDURE: XR chest 1V: Encounter: Initial Comparison: July 09, 2017 and February 03, 2017 Findings: Overall stable appearance of the chest with asymmetrically increased density throughout the majority of the left lung, similar to the two most recent comparison studies. No new infiltrates appreciated. No pneumothorax or definite effusion. Heart size and mediastinal contours are stable. Pulmonary vascularity is unchanged. Impression: Stable appearance of the chest with chronic increased markings in the left lung could be due to fibrosis. No focal pneumonia or overt congestive failure. .
[2017-07-18] MEDS ORDERED: SULFAMETHOXAZOLE/TMP 800 MG/160 MG DS TABLET PO SCH (17:30)
--- NOTE | 2017-07-18 17:41 | Neuropsych Progress Note ---
[facility] Subjective Date: 07/18/17 - Sujective/Severity of Illness Medications: Acetaminophen (Tylenol) 325 - 650 mg PO Q5H PRN PRN Reason: Discomfort Last Admin: 07/18/17 00:16 Dose: 650 mg Albuterol Sulfate (Proventil Neb (0.083%)) 2.5 mg AEROSOL RTQID PRN PRN Reason: wheezing Last Admin: 07/13/17 18:05 Dose: 2.5 mg Bisacodyl (Dulcolax) 10 mg PO DAILY PRN PRN Reason: Constipation Divalproex Sodium (Depakote) 500 mg PO BID [facility] Last Admin: 07/18/17 10:27 Dose: 500 mg Docusate Sodium (Colace) 100 mg PO DAILY [facility] Last Admin: 07/18/17 10:27 Dose: 100 mg Furosemide (Lasix) 40 mg PO 0900,1700 [facility] Last Admin: 07/18/17 10:27 Dose: 40 mg Haloperidol (Haldol) 0.5 mg PO Q6H PRN PRN Reason: Extreme agitation Haloperidol Decanoate (Haldol Liquid) 0.5 mg PO Q6H PRN PRN Reason: Anxiety/Agitation Haloperidol Lactate (Haldol) 0.5 mg IM Q6H PRN PRN Reason: Extreme agitation Last Admin: 07/10/17 21:24 Dose: 0.5 mg Lactobacillus Acidophilus (Culturelle) 2 cap PO TIDWM [facility] Last Admin: 07/18/17 13:12 Dose: Not Given Levothyroxine Sodium (Synthroid) 175 mcg PO ACB [facility] Last Admin: 07/18/17 10:25 Dose: 175 mcg Lorazepam (Ativan) 0.5 mg PO Q6H PRN PRN Reason: Extreme agitation Last Admin: 07/16/17 19:29 Dose: 0.5 mg Lorazepam (Ativan Inj) 0.5 mg IM Q6H PRN PRN Reason: Extreme agitation Last Admin: 07/11/17 02:14 Dose: 0.5 mg Lorazepam (Ativan Intensol) 0.5 mg SL Q6H PRN PRN Reason: Anxiety/Agitation Last Admin: 07/10/17 19:48 Dose: 0.5 mg Lovastatin (Mevacor) 20 mg PO 2100 [facility] Last Admin: 08/17/17 20:19 Dose: 20 mg Magnesium Hydroxide (Mom) 30 ml PO DAILY PRN PRN Reason: Constipation Ondansetron HCl (Zofran Po) 4 mg PO Q8H PRN PRN Reason: NAUSEA & VOMITING Quetiapine Fumarate (Seroquel) 50 mg PO 0900,1500 [facility] Last Admin: 07/18/17 15:13 Dose: 50 mg Quetiapine Fumarate (Seroquel) 150 mg PO HS [facility] Last Admin: 07/17/17 20:19 Dose: 150 mg Sertraline HCl (Zoloft) 100 mg PO DAILY [facility] Last Admin: 07/18/17 10:28 Dose: 100 mg Trimethoprim/Sulfamethoxazole (Bactrim Ds) 1 tab PO BID [facility] Stop: 07/21/17 09:01 Subjective: Pt seen and chart examined. Nursing reports pt continues to improve. She can be irritable at times but only with certain staff and does very well with others. Sleeping and eating well. On face to face the pt states she is doing well. She is smiling and joking with staff. She denies any pain. Denies psychotic symptoms. Tolerating meds Start Time: 17:15 Stop Time: 17:30 Mental Status Exam Vitals: Last Vital Signs Temp 99.0 F 07/18/17 16:00 Pulse 92 07/18/17 16:00 Resp 18 07/18/17 16:00 BP 107/52 07/18/17 16:00 Pulse Ox 94 07/18/17 16:00 Height: 1.55 m Weight: 89.9 kg - Mental Status Exam Muscle Strength/Tone: Normal Dressing: Casual Grooming: Good Attitude: Guarded Motor Activity: Retardation Eye Contact: Fair Speech: Slowed Volume: Soft Rhythm: Slurred Orientation: Oriented to person Mood: Neutral Rate of Thoughts: Delayed Thought Organization: Disorganized Associations: Flight of Ideas Thought Content: Delusions Perception/Psychotic: Hx psychosis, not current Language: Naming Impaired Fund of Knowledge: Poor fund of knowledge Memory: Poor-immediate, Poor-recent Suicidal Ideation: None Homicidal Ideation: None Insight: Poor Judgement: Poor Impulse Control: Fair - Laboratory Result Diagrams: 07/15/17 14:45 07/15/17 14:45 Laboratory Results - last 24 hr 07/17/17 07/17/17 07/18/17 20:43 22:15 05:48 Glucometer 180 116 Ur Collection Type Urine, clean catch Urine Color Yellow Urine Clarity Sl cloudy Urine pH 6.5 Ur Specific [place] 1.010 L Urine Protein Negative Urine Glucose (UA) Negative Urine Ketones Negative Urine Occult Blood Negative Urine Nitrate Positive A Urine Bilirubin Negative Urine Urobilinogen 0.2 Ur Leukocyte Esterase Trace A Urine RBC 0-1 Urine WBC 5-10 H Ur Squamous Epith Cells 0-5 Urine Bacteria 2+ H Ur Culture Indicated? Cult reflexed &setup Assessment and Plan (1) Schizoaffective disorder Qualifiers: Schizoaffective disorder type: bipolar Qualified Code(s): F25.0 - Schizoaffective disorder, bipolar type Current visit: No Status: Chronic Hospital Course Summary Disclaimer: The visit summary below is not to be considered part of the above Progress Note. Hospital Course: 07/08/17 11:59 Impression: Dementia with behavioral changes, paranoia and delusions, acute, present on admission. * Agree with the admission to [facility] for continued psychiatric evaluation and treatment. Provide safe and supportive environment. PRN medications as indicated Hypernatremia, acute, present on admission. * Sodium elevated on admission at 147. Encourage oral fluid intake. Recheck BMP on 07/10 to monitor electrolytes and renal function. Monitor throughout admission. Elevated TSH, acute on chronic, present on admission. * TSH elevated at 15.10 on admission. Nursing reports that patient has been selectively choosing which meds she will be compliant with. Suspect elevation is due to medication noncompliance. Will recheck on 07/14 for down trending after consistent treatment. If TSH remains elevated, consider dose adjustment at that time. UTI, acute, present prior to admission. * UTI diagnosed on 07/03 and treatment with Cipro initiated. Culture from 07/03 showed E. coli with multiresistance to sulfa and ampicillin. Cipro to be completed on 07/10. UA on admission was unremarkable. Recommend completion of treatment to avoid resistance. Schizoaffective disorders, chronic. * Treatment per psychiatric team. Major depressive disorder, chronic. * Treatment per psychiatric team. Hypertension, chronic. * Blood pressure fairly well controlled. Continue to monitor closely. Continue home Lasix 40mg. Hypercholesterolemia, possible new diagnosis. * Lipid panel on admission revealed hypercholesterolemia with total cholesterol 320. No current home treatment. Will initiate lovastatin and recommend follow up as outpatient with PCP following discharge. Diabetes, Type II, chronic. * No home treatment listed. Will provide carb controlled diet and check A1c now to assess for glucose control. Monitor BGMs in AM and HS. COPD, chronic. * No current treatment required. Monitor respiratory function closely. CHF, chronic. * Continue home Lasix 40mg daily. Monitor closely for fluid overload and monitor daily weights. Constipation, chronic. * Continue home Colace and lactobacillus. Miralax and MOM as needed. Parkinson's, chronic. * Monitor for gait instability. Upon discharge, patient's care will be returned to her PCP. 07/10/17 18:18 Continue current care 07/11/17 17:49 Increase Seroquel to 50mg PO BID and 100mg PO QHS. Change Depakote to DR 500mg PO BID 07/12/17 10:12 Continue current care 07/12/17 16:09 07/12/17- Patient is wheezy and appears fluid overloaded. (Diastolic HF, pEF) Will give extra dose of Lasix and single dose of KCL tonight. Repeat BMP in AM. If no improvement, consider CXR tomorrow. Add PRN albuterol for symptomatic relief. Continue remainder of medications. Screening labs ordered for Friday AM. continue Synthroid- consider recheck TSH in 2-4 weeks or prior to DC. 07/13/17 12:52 Continue current care 07/14/17 19:01 Increase HS Seroquel to 150mg 07/15/17 16:55 Continue current care 07/16/17 18:16 Pt continues to be irritable at times but improving. Will continue current meds 07/17/17 19:15 Improving but still remains irritable at times. Will continue current meds 07/18/17 CHF; rales on exam - repeat CXR now to f/u on previous abnormal one showing interstitial edema. Lasix was increased to BID on 07/14 - will repeat BMP now to reassess electrolytes. UTI - Cx again is growing out E. coli. She denies symptoms; she has no leukocytosis or fever. CrCl is only 23, which limits abx choices further if we would decide to treat. At this time will continue to monitor rather than initiating treatment. Repeat TSH. 07/18/17 17:41 Pt is improving. Still irritable at times. Continue current care
[2017-07-18] MEDS: SULFAMETHOXAZOLE/TMP 800 MG/160 MG DS TABLET PO SCH (17:42)
[2017-07-18] MEDS: ALBUTEROL 2.5mg/3ml (0.083%) NEB AEROSOL PRN (20:30)
[2017-07-18] MEDS: QUETIAPINE 100 MG TABLET PO SCH (20:39)
[2017-07-18] MEDS: LOVASTATIN 20 MG TABLET PO SCH (20:39)
[2017-07-19] MEDS: LEVOTHYROXINE 175 MCG TABLET PO SCH (05:43)
[2017-07-19] MEDS: SULFAMETHOXAZOLE/TMP 800 MG/160 MG DS TABLET PO SCH (11:49)
[2017-07-19] MEDS: DIVALPROEX 250 MG TABLET PO SCH ×2 (11:49→21:09)
[2017-07-19] MEDS: DOCUSATE SODIUM 100 MG CAPSULE PO SCH (11:49)
[2017-07-19] MEDS: LACTOBACILLUS (15B cfu) CAPSULE PO SCH ×3 (11:49→17:22)
[2017-07-19] MEDS: SERTRALINE 100 MG TABLET PO SCH (11:50)
[2017-07-19] MEDS: QUETIAPINE 50 MG TABLET PO SCH ×2 (11:50→17:22)
[2017-07-19] MEDS: FUROSEMIDE 40 MG TABLET PO SCH ×2 (11:50→17:22)
--- NOTE | 2017-07-19 13:55 | Neuropsych Progress Note ---
[facility] Subjective Date: 07/19/17 - Sujective/Severity of Illness Medications: Acetaminophen (Tylenol) 325 - 650 mg PO Q5H PRN PRN Reason: Discomfort Last Admin: 07/18/17 00:16 Dose: 650 mg Albuterol Sulfate (Proventil Neb (0.083%)) 2.5 mg AEROSOL RTQID PRN PRN Reason: wheezing Last Admin: 07/18/17 20:30 Dose: 2.5 mg Bisacodyl (Dulcolax) 10 mg PO DAILY PRN PRN Reason: Constipation Divalproex Sodium (Depakote) 500 mg PO BID [facility] Last Admin: 07/19/17 11:49 Dose: 500 mg Docusate Sodium (Colace) 100 mg PO DAILY [facility] Last Admin: 07/19/17 11:49 Dose: 100 mg Furosemide (Lasix) 40 mg PO 0900,1700 [facility] Last Admin: 07/19/17 11:50 Dose: 40 mg Haloperidol (Haldol) 0.5 mg PO Q6H PRN PRN Reason: Extreme agitation Haloperidol Decanoate (Haldol Liquid) 0.5 mg PO Q6H PRN PRN Reason: Anxiety/Agitation Haloperidol Lactate (Haldol) 0.5 mg IM Q6H PRN PRN Reason: Extreme agitation Last Admin: 07/10/17 21:24 Dose: 0.5 mg Lactobacillus Acidophilus (Culturelle) 2 cap PO TIDWM [facility] Last Admin: 07/19/17 11:56 Dose: Not Given Levothyroxine Sodium (Synthroid) 175 mcg PO ACB [facility] Last Admin: 07/19/17 05:43 Dose: 175 mcg Lorazepam (Ativan) 0.5 mg PO Q6H PRN PRN Reason: Extreme agitation Last Admin: 07/16/17 19:29 Dose: 0.5 mg Lorazepam (Ativan Inj) 0.5 mg IM Q6H PRN PRN Reason: Extreme agitation Last Admin: 07/11/17 02:14 Dose: 0.5 mg Lorazepam (Ativan Intensol) 0.5 mg SL Q6H PRN PRN Reason: Anxiety/Agitation Last Admin: 07/10/17 19:48 Dose: 0.5 mg Lovastatin (Mevacor) 20 mg PO 2100 [facility] Last Admin: 08/18/17 20:39 Dose: 20 mg Magnesium Hydroxide (Mom) 30 ml PO DAILY PRN PRN Reason: Constipation Ondansetron HCl (Zofran Po) 4 mg PO Q8H PRN PRN Reason: NAUSEA & VOMITING Quetiapine Fumarate (Seroquel) 50 mg PO 0900,1500 [facility] Last Admin: 07/19/17 11:50 Dose: 50 mg Quetiapine Fumarate (Seroquel) 150 mg PO HS [facility] Last Admin: 07/18/17 20:39 Dose: 150 mg Sertraline HCl (Zoloft) 100 mg PO DAILY [facility] Last Admin: 07/19/17 11:50 Dose: 100 mg Trimethoprim/Sulfamethoxazole (Bactrim Ds) 1 tab PO BID [facility] Stop: 07/21/17 09:01 Last Admin: 07/19/17 11:49 Dose: 1 tab Subjective: Pt seen and chart examined. Nursing reports pt continues to improve. She can be irritable at times but only with certain staff and does very well with others. No behaviors noted and no PRN's. On face to face the pt is resting. She reports she is doing well and voices no concerns. Tolerating meds Start Time: 11:30 Stop Time: 11:45 Mental Status Exam Vitals: Last Vital Signs Temp 99.4 F 07/19/17 13:18 Pulse 117 H 07/19/17 13:18 Resp 20 07/19/17 13:18 BP 116/58 07/19/17 13:18 Pulse Ox 92 07/19/17 13:18 Height: 1.55 m Weight: 89.9 kg - Mental Status Exam Muscle Strength/Tone: Normal Dressing: Casual Grooming: Good Attitude: Guarded Motor Activity: Retardation Eye Contact: Fair Speech: Slowed Volume: Soft Rhythm: Slurred Orientation: Oriented to person Mood: Neutral Rate of Thoughts: Delayed Thought Organization: Disorganized Associations: Flight of Ideas Thought Content: Delusions Perception/Psychotic: Hx psychosis, not current Language: Naming Impaired Fund of Knowledge: Poor fund of knowledge Memory: Poor-immediate, Poor-recent Suicidal Ideation: None Homicidal Ideation: None Insight: Poor Judgement: Poor Impulse Control: Fair - Laboratory Result Diagrams: 07/15/17 14:45 07/18/17 17:24 Laboratory Results - last 24 hr 07/18/17 07/18/17 07/19/17 17:24 20:25 05:58 Turbidity < 20 Sodium 141 Potassium 4.4 Chloride 96 L Carbon Dioxide 34 H Anion Gap 11 BUN 34.0 H Creatinine 1.1 GFR Calculation 48 BUN/Creatinine Ratio 31 H Glucose 119 H Glucometer 149 168 Calculated Osmolality 280 Calcium 9.1 Icterus Index < 2 TSH 7.47 H Specimen Hemolysis < 15 Assessment and Plan (1) Schizoaffective disorder Qualifiers: Schizoaffective disorder type: bipolar Qualified Code(s): F25.0 - Schizoaffective disorder, bipolar type Current visit: No Status: Chronic Hospital Course Summary Disclaimer: The visit summary below is not to be considered part of the above Progress Note. Hospital Course: 07/08/17 11:59 Impression: Dementia with behavioral changes, paranoia and delusions, acute, present on admission. * Agree with the admission to [facility] for continued psychiatric evaluation and treatment. Provide safe and supportive environment. PRN medications as indicated Hypernatremia, acute, present on admission. * Sodium elevated on admission at 147. Encourage oral fluid intake. Recheck BMP on 07/10 to monitor electrolytes and renal function. Monitor throughout admission. Elevated TSH, acute on chronic, present on admission. * TSH elevated at 15.10 on admission. Nursing reports that patient has been selectively choosing which meds she will be compliant with. Suspect elevation is due to medication noncompliance. Will recheck on 07/14 for down trending after consistent treatment. If TSH remains elevated, consider dose adjustment at that time. UTI, acute, present prior to admission. * UTI diagnosed on 07/03 and treatment with Cipro initiated. Culture from 07/03 showed E. coli with multiresistance to sulfa and ampicillin. Cipro to be completed on 07/10. UA on admission was unremarkable. Recommend completion of treatment to avoid resistance. Schizoaffective disorders, chronic. * Treatment per psychiatric team. Major depressive disorder, chronic. * Treatment per psychiatric team. Hypertension, chronic. * Blood pressure fairly well controlled. Continue to monitor closely. Continue home Lasix 40mg. Hypercholesterolemia, possible new diagnosis. * Lipid panel on admission revealed hypercholesterolemia with total cholesterol 320. No current home treatment. Will initiate lovastatin and recommend follow up as outpatient with PCP following discharge. Diabetes, Type II, chronic. * No home treatment listed. Will provide carb controlled diet and check A1c now to assess for glucose control. Monitor BGMs in AM and HS. COPD, chronic. * No current treatment required. Monitor respiratory function closely. CHF, chronic. * Continue home Lasix 40mg daily. Monitor closely for fluid overload and monitor daily weights. Constipation, chronic. * Continue home Colace and lactobacillus. Miralax and MOM as needed. Parkinson's, chronic. * Monitor for gait instability. Upon discharge, patient's care will be returned to her PCP. 07/10/17 18:18 Continue current care 07/11/17 17:49 Increase Seroquel to 50mg PO BID and 100mg PO QHS. Change Depakote to DR 500mg PO BID 07/12/17 10:12 Continue current care 07/12/17 16:09 07/12/17- Patient is wheezy and appears fluid overloaded. (Diastolic HF, pEF) Will give extra dose of Lasix and single dose of KCL tonight. Repeat BMP in AM. If no improvement, consider CXR tomorrow. Add PRN albuterol for symptomatic relief. Continue remainder of medications. Screening labs ordered for Friday AM. continue Synthroid- consider recheck TSH in 2-4 weeks or prior to DC. 07/13/17 12:52 Continue current care 07/14/17 19:01 Increase HS Seroquel to 150mg 07/15/17 16:55 Continue current care 07/16/17 18:16 Pt continues to be irritable at times but improving. Will continue current meds 07/17/17 19:15 Improving but still remains irritable at times. Will continue current meds 07/18/17 CHF; rales on exam - repeat CXR now to f/u on previous abnormal one showing interstitial edema. Lasix was increased to BID on 07/14 - will repeat BMP now to reassess electrolytes. UTI - Cx again is growing out E. coli. She denies symptoms; she has no leukocytosis or fever. CrCl is only 23, which limits abx choices further if we would decide to treat. At this time will continue to monitor rather than initiating treatment. Repeat TSH. 07/18/17 17:41 Pt is improving. Still irritable at times. Continue current care 07/19/17 13:54 Pt improving. Continue current care
[2017-07-19] MEDS ORDERED: FOSFOMYCIN 3 GRAM PACKET PO ONE (17:02)
[2017-07-19] MEDS: LOVASTATIN 20 MG TABLET PO SCH (21:09)
[2017-07-19] MEDS: QUETIAPINE 100 MG TABLET PO SCH (21:10)
[2017-07-20] MEDS: ACETAMINOPHEN 325 MG TABLET PO PRN ×2 (03:53→21:56)
[2017-07-20] MEDS: LEVOTHYROXINE 175 MCG TABLET PO SCH (05:39)
[2017-07-20] MEDS: LACTOBACILLUS (15B cfu) CAPSULE PO SCH ×3 (09:40→17:26)
[2017-07-20] MEDS: QUETIAPINE 50 MG TABLET PO SCH ×2 (09:40→14:45)
[2017-07-20] MEDS: DIVALPROEX 250 MG TABLET PO SCH ×3 (09:40→23:27)
[2017-07-20] MEDS: DOCUSATE SODIUM 100 MG CAPSULE PO SCH (09:40)
[2017-07-20] MEDS: FUROSEMIDE 40 MG TABLET PO SCH ×2 (09:40→17:26)
[2017-07-20] MEDS: SERTRALINE 100 MG TABLET PO SCH (09:40)
--- NOTE | 2017-07-20 17:14 | Neuropsych Progress Note ---
[facility] Subjective Date: 07/20/17 - Sujective/Severity of Illness Medications: Acetaminophen (Tylenol) 325 - 650 mg PO Q5H PRN PRN Reason: Discomfort Last Admin: 07/20/17 03:53 Dose: 650 mg Albuterol Sulfate (Proventil Neb (0.083%)) 2.5 mg AEROSOL RTQID PRN PRN Reason: wheezing Last Admin: 07/18/17 20:30 Dose: 2.5 mg Bisacodyl (Dulcolax) 10 mg PO DAILY PRN PRN Reason: Constipation Divalproex Sodium (Depakote) 500 mg PO BID [facility] Last Admin: 07/20/17 09:40 Dose: 500 mg Docusate Sodium (Colace) 100 mg PO DAILY [facility] Last Admin: 07/20/17 09:40 Dose: 100 mg Furosemide (Lasix) 40 mg PO 0900,1700 [facility] Last Admin: 07/20/17 09:40 Dose: 40 mg Haloperidol (Haldol) 0.5 mg PO Q6H PRN PRN Reason: Extreme agitation Haloperidol Decanoate (Haldol Liquid) 0.5 mg PO Q6H PRN PRN Reason: Anxiety/Agitation Haloperidol Lactate (Haldol) 0.5 mg IM Q6H PRN PRN Reason: Extreme agitation Last Admin: 07/10/17 21:24 Dose: 0.5 mg Lactobacillus Acidophilus (Culturelle) 2 cap PO TIDWM [facility] Last Admin: 07/20/17 14:36 Dose: 2 cap Levothyroxine Sodium (Synthroid) 175 mcg PO ACB [facility] Last Admin: 07/20/17 05:39 Dose: 175 mcg Lorazepam (Ativan) 0.5 mg PO Q6H PRN PRN Reason: Extreme agitation Last Admin: 07/16/17 19:29 Dose: 0.5 mg Lorazepam (Ativan Inj) 0.5 mg IM Q6H PRN PRN Reason: Extreme agitation Last Admin: 07/11/17 02:14 Dose: 0.5 mg Lorazepam (Ativan Intensol) 0.5 mg SL Q6H PRN PRN Reason: Anxiety/Agitation Last Admin: 07/10/17 19:48 Dose: 0.5 mg Lovastatin (Mevacor) 20 mg PO 2100 [facility] Last Admin: 08/19/17 21:09 Dose: 20 mg Magnesium Hydroxide (Mom) 30 ml PO DAILY PRN PRN Reason: Constipation Ondansetron HCl (Zofran Po) 4 mg PO Q8H PRN PRN Reason: NAUSEA & VOMITING Quetiapine Fumarate (Seroquel) 50 mg PO 0900,1500 [facility] Last Admin: 07/20/17 14:45 Dose: 50 mg Quetiapine Fumarate (Seroquel) 150 mg PO HS [facility] Last Admin: 07/19/17 21:10 Dose: 150 mg Sertraline HCl (Zoloft) 100 mg PO DAILY [facility] Last Admin: 07/20/17 09:40 Dose: 100 mg Subjective: Pt seen and chart examined. Nursing reports pt is doing well. Sleeping and eating well. No behaviors noted. On face to face the pt states she is doing well. She is pleasant. Denies any pain. Tolerating meds Start Time: 11:45 Stop Time: 12:00 Mental Status Exam Vitals: Last Vital Signs Temp 97.6 F 07/20/17 16:00 Pulse 85 07/20/17 16:00 Resp 20 07/20/17 16:00 BP 108/62 07/20/17 16:00 Pulse Ox 91 07/20/17 16:00 Height: 1.55 m Weight: 89.9 kg - Mental Status Exam Muscle Strength/Tone: Normal Dressing: Casual Grooming: Good Attitude: Guarded Motor Activity: Retardation Eye Contact: Fair Speech: Slowed Volume: Soft Rhythm: Slurred Orientation: Oriented to person Mood: Neutral Rate of Thoughts: Delayed Thought Organization: Disorganized Associations: Flight of Ideas Thought Content: Delusions Perception/Psychotic: Hx psychosis, not current Language: Naming Impaired Fund of Knowledge: Poor fund of knowledge Memory: Poor-immediate, Poor-recent Suicidal Ideation: None Homicidal Ideation: None Insight: Poor Judgement: Poor Impulse Control: Fair - Laboratory Result Diagrams: 07/15/17 14:45 07/18/17 17:24 Laboratory Results - last 24 hr 07/19/17 07/20/17 20:26 05:01 Glucometer 162 165 Assessment and Plan (1) Schizoaffective disorder Qualifiers: Schizoaffective disorder type: bipolar Qualified Code(s): F25.0 - Schizoaffective disorder, bipolar type Current visit: No Status: Chronic Hospital Course Summary Disclaimer: The visit summary below is not to be considered part of the above Progress Note. Hospital Course: 07/08/17 11:59 Impression: Dementia with behavioral changes, paranoia and delusions, acute, present on admission. * Agree with the admission to [facility] for continued psychiatric evaluation and treatment. Provide safe and supportive environment. PRN medications as indicated Hypernatremia, acute, present on admission. * Sodium elevated on admission at 147. Encourage oral fluid intake. Recheck BMP on 07/10 to monitor electrolytes and renal function. Monitor throughout admission. Elevated TSH, acute on chronic, present on admission. * TSH elevated at 15.10 on admission. Nursing reports that patient has been selectively choosing which meds she will be compliant with. Suspect elevation is due to medication noncompliance. Will recheck on 07/14 for down trending after consistent treatment. If TSH remains elevated, consider dose adjustment at that time. UTI, acute, present prior to admission. * UTI diagnosed on 07/03 and treatment with Cipro initiated. Culture from 07/03 showed E. coli with multiresistance to sulfa and ampicillin. Cipro to be completed on 07/10. UA on admission was unremarkable. Recommend completion of treatment to avoid resistance. Schizoaffective disorders, chronic. * Treatment per psychiatric team. Major depressive disorder, chronic. * Treatment per psychiatric team. Hypertension, chronic. * Blood pressure fairly well controlled. Continue to monitor closely. Continue home Lasix 40mg. Hypercholesterolemia, possible new diagnosis. * Lipid panel on admission revealed hypercholesterolemia with total cholesterol 320. No current home treatment. Will initiate lovastatin and recommend follow up as outpatient with PCP following discharge. Diabetes, Type II, chronic. * No home treatment listed. Will provide carb controlled diet and check A1c now to assess for glucose control. Monitor BGMs in AM and HS. COPD, chronic. * No current treatment required. Monitor respiratory function closely. CHF, chronic. * Continue home Lasix 40mg daily. Monitor closely for fluid overload and monitor daily weights. Constipation, chronic. * Continue home Colace and lactobacillus. Miralax and MOM as needed. Parkinson's, chronic. * Monitor for gait instability. Upon discharge, patient's care will be returned to her PCP. 07/10/17 18:18 Continue current care 07/11/17 17:49 Increase Seroquel to 50mg PO BID and 100mg PO QHS. Change Depakote to DR 500mg PO BID 07/12/17 10:12 Continue current care 07/12/17 16:09 07/12/17- Patient is wheezy and appears fluid overloaded. (Diastolic HF, pEF) Will give extra dose of Lasix and single dose of KCL tonight. Repeat BMP in AM. If no improvement, consider CXR tomorrow. Add PRN albuterol for symptomatic relief. Continue remainder of medications. Screening labs ordered for Friday AM. continue Synthroid- consider recheck TSH in 2-4 weeks or prior to DC. 07/13/17 12:52 Continue current care 07/14/17 19:01 Increase HS Seroquel to 150mg 07/15/17 16:55 Continue current care 07/16/17 18:16 Pt continues to be irritable at times but improving. Will continue current meds 07/17/17 19:15 Improving but still remains irritable at times. Will continue current meds 07/18/17 CHF; rales on exam - repeat CXR now to f/u on previous abnormal one showing interstitial edema. Lasix was increased to BID on 07/14 - will repeat BMP now to reassess electrolytes. UTI - Cx again is growing out E. coli. She denies symptoms; she has no leukocytosis or fever. CrCl is only 23, which limits abx choices further if we would decide to treat. At this time will continue to monitor rather than initiating treatment. Repeat TSH. 07/18/17 17:41 Pt is improving. Still irritable at times. Continue current care 07/19/17 13:54 Pt improving. Continue current care 07/20/17 17:13 Anticipate D/C Friday
--- NOTE | 2017-07-20 17:27 | Discharge Instructions ---
Discharge Plan - Med Rec/Dispo Additional Instructions: Diagnosis: Major Neurocognitive Disorder with Behavioral Disturbance Prescriptions: New Haloperidol [Haldol] 0.5 mg PO Q6H PRN #120 tablet PRN Reason: Extreme Agitation LORazepam [Ativan] 0.5 mg PO Q6H PRN #120 tablet PRN Reason: Extreme Agitation Sertraline [Zoloft] 100 mg PO DAILY #30 tablet Divalproex [Depakote] 500 mg PO BID #60 tablet Quetiapine [Seroquel] 150 mg PO HS #30 tablet Continue Quetiapine Fumarate [Seroquel] 50 mg PO BID #60 tab Discontinued Divalproex Sodium [Depakote ER] 750 mg PO HS #20 LORazepam [Ativan] 0.5 mg PO TID #0 Sertraline HCl 100 mg PO DAILY 30 Days #30 tab No Action Docusate Sodium 100 mg PO DAILY #0 Furosemide 40 mg PO DAILY #0 Lactobacillus Acidophilus [Acidophilus Lactobacillus] 2 cap PO TID #0 Ondansetron [Ondansetron Odt] 4 mg PO Q8H PRN #0 PRN Reason: NAUSEA &/OR VOMITING Acetaminophen 650 mg PO Q4HR PRN #0 PRN Reason: PAIN Levothyroxine Sodium 175 mcg PO ACB #0 Magnesium Hydroxide [Milk of Magnesia] 30 ml PO Q12H PRN #0 PRN Reason: CONSTIPATION Ciprofloxacin HCl [Cipro] 500 mg PO BID - Disposition 04 To [facility] Home/Facility
--- NOTE | 2017-07-20 17:31 | Extended Care Facility Orders ---
Admission Orders Admit to:: ICF Allergies/Adverse Reactions: Allergies Penicillins Allergy (Mild, Verified 11/18/16 01:35) RASH cefuroxime Allergy (Unknown, Verified 11/18/16 01:35) Admitting Diagnosis: Schizo affective disorder Admitting Physician: Gerson Medellin MD Attending Physician: Gerson Medellin MD Code Status: Full Code Anticiapted Length of Stay: greater than 30 days Rehab Potential: fair Rehab Prognosis: fair Diet: 07/09/17 Lunch Consistent Carbohydrate Diet [DIET] Calorie Level: 1800 Fluid Consistency: REGLIQU Food Consistency: MECSOF May use Facility Protocol or Standing Orders: Yes May have flu vaccine: Yes Evaluations/Treatment: as needed Assisted Certification: I certify that SNF services are required to be given on an Inpatient basis because of the patients need for shelter care on a continuing basis for the condition(s) for which he/she received inpatient hospital services prior to his/her transfer to the SNF. SNF inpatient care is necessary for the following reasons Indication for Assisted: Med Admininistration - Additional Information In Event of Arrest: Do Not Start CPR Resident is Aware of Diagnosis: No
--- NOTE | 2017-07-20 17:35 | Discharge Instructions ---
Discharge Plan - Med Rec/Dispo Additional Instructions: Diagnosis: Major Neurocognitive Disorder with Behavioral Disturbance Prescriptions: New Haloperidol [Haldol] 0.5 mg PO Q6H PRN #120 tablet PRN Reason: Extreme Agitation LORazepam [Ativan] 0.5 mg PO Q6H PRN #120 tablet PRN Reason: Extreme Agitation Sertraline [Zoloft] 100 mg PO DAILY #30 tablet Divalproex [Depakote] 500 mg PO BID #60 tablet Quetiapine [Seroquel] 150 mg PO HS #30 tablet Continue Quetiapine Fumarate [Seroquel] 50 mg PO BID #60 tab Discontinued Divalproex Sodium [Depakote ER] 750 mg PO HS #20 LORazepam [Ativan] 0.5 mg PO TID #0 Sertraline HCl 100 mg PO DAILY 30 Days #30 tab No Action Docusate Sodium 100 mg PO DAILY #0 Furosemide 40 mg PO DAILY #0 Lactobacillus Acidophilus [Acidophilus Lactobacillus] 2 cap PO TID #0 Ondansetron [Ondansetron Odt] 4 mg PO Q8H PRN #0 PRN Reason: NAUSEA &/OR VOMITING Acetaminophen 650 mg PO Q4HR PRN #0 PRN Reason: PAIN Levothyroxine Sodium 175 mcg PO ACB #0 Magnesium Hydroxide [Milk of Magnesia] 30 ml PO Q12H PRN #0 PRN Reason: CONSTIPATION Ciprofloxacin HCl [Cipro] 500 mg PO BID Discharge Instructions/Outpatient Orders: Final Provider Discharge Instructions Location: Determined By Patient - Disposition 04 To [facility] Home/Facility
[2017-07-20] MEDS: QUETIAPINE 100 MG TABLET PO SCH ×2 (19:45→23:28)
[2017-07-20] MEDS: LOVASTATIN 20 MG TABLET PO SCH ×2 (19:47→23:28)
[2017-07-21] MEDS: ACETAMINOPHEN 325 MG TABLET PO PRN (04:57)
[2017-07-21] MEDS: LEVOTHYROXINE 175 MCG TABLET PO SCH (05:44)
[2017-07-21 09:26] VITALS: BP 127/65; PULSE 89; RESP 16; TEMP 96.2; O2SAT 96
--- NOTE | 2017-07-21 09:34 | Discharge Instructions ---
Discharge Plan - Med Rec/Dispo Referrals/Follow Up: Karena Haines MD [Family Provider] - (Dr. Mikel Haines will see patient on rounds at the facility for Hosp. follow-up. . Dr. Haines's HAND LAUNDERER Grace, will see patient on rounds at the facility for Mental Health follow-up.) Additional Instructions: Diagnosis: Major Neurocognitive Disorder with Behavioral Disturbance Reasons for Admission: Acute change in mental status, zero rationale thought, and delusional and tangential thought process. IN CASE OF PSYCHIATRIC EMERGENCY, CONTACT GENERATIONS STAFF AT [phone] ( available 24 hrs daily.) Patient's Lasix dose was increased for part of her stay due to fluid overload. Her home dose was resumed on discharge. Monitor weights when back at the fpc. Contact patient's PCP if steadily increasing. Her TSH was also elevated, but it improved during her stay. (TSH 15 on admission and 7 on dismissal.) PCP to follow thyroid labs. Prescriptions: New Haloperidol [Haldol] 0.5 mg PO Q6H PRN #120 tablet PRN Reason: Extreme Agitation LORazepam [Ativan] 0.5 mg PO Q6H PRN #120 tablet PRN Reason: Extreme Agitation Sertraline [Zoloft] 100 mg PO DAILY #30 tablet Divalproex [Depakote] 500 mg PO BID #60 tablet Quetiapine [Seroquel] 150 mg PO HS #30 tablet Continue Docusate Sodium 100 mg PO DAILY #0 Furosemide 40 mg PO DAILY #0 Lactobacillus Acidophilus [Acidophilus Lactobacillus] 2 cap PO TID #0 Ondansetron [Ondansetron Odt] 4 mg PO Q8H PRN #0 PRN Reason: NAUSEA &/OR VOMITING Quetiapine Fumarate [Seroquel] 50 mg PO BID #60 tab Acetaminophen 650 mg PO Q4HR PRN #0 PRN Reason: PAIN Levothyroxine Sodium 175 mcg PO ACB #0 Discontinued Divalproex Sodium [Depakote ER] 750 mg PO HS #20 LORazepam [Ativan] 0.5 mg PO TID #0 Magnesium Hydroxide [Milk of Magnesia] 30 ml PO Q12H PRN #0 PRN Reason: CONSTIPATION Sertraline HCl 100 mg PO DAILY 30 Days #30 tab Ciprofloxacin HCl [Cipro] 500 mg PO BID Discharge Instructions/Outpatient Orders: Final Provider Discharge Instructions Location: Determined By Patient - Disposition 04 To [facility] Home/Facility
[2017-07-21] MEDS: LACTOBACILLUS (15B cfu) CAPSULE PO SCH (11:48)
[2017-07-21] MEDS: DOCUSATE SODIUM 100 MG CAPSULE PO SCH (11:48)
[2017-07-21] MEDS: FUROSEMIDE 40 MG TABLET PO SCH (11:49)
[2017-07-21] MEDS: SERTRALINE 100 MG TABLET PO SCH (11:49)
[2017-07-21] MEDS: DIVALPROEX 250 MG TABLET PO SCH (11:49)
[2017-07-21] MEDS: QUETIAPINE 50 MG TABLET PO SCH (11:49)
--- NOTE | 2017-07-21 11:50 | Extended Care Facility Orders ---
Admission Orders Admit to:: ICF Allergies/Adverse Reactions: Allergies Penicillins Allergy (Mild, Verified 11/18/16 01:35) RASH cefuroxime Allergy (Unknown, Verified 11/18/16 01:35) Admitting Diagnosis: Schizo affective disorder Admitting Physician: Gerson Medellin MD Attending Physician: Gerson Medellin MD Code Status: Full Code Anticiapted Length of Stay: greater than 30 days Rehab Potential: fair Rehab Prognosis: fair Diet: 07/09/17 Lunch Consistent Carbohydrate Diet [DIET] Calorie Level: 1800 Fluid Consistency: REGLIQU Food Consistency: MECSOF May use Facility Protocol or Standing Orders: Yes May have flu vaccine: Yes Evaluations/Treatment: as needed Group Home Certification: I certify that SNF services are required to be given on an Inpatient basis because of the patients need for correction care on a continuing basis for the condition(s) for which he/she received inpatient hospital services prior to his/her transfer to the SNF. SNF inpatient care is necessary for the following reasons Indication for Group Home: Not Applicable - Additional Information In Event of Arrest: Do Not Start CPR Referrals: Karena Haines MD [Family Provider] - (Dr. Mikel Haines will see patient on rounds at the facility for Hosp. follow-up. . Dr. Haines's CASH CONTROLLER Grace, will see patient on rounds at the facility for Mental Health follow-up.)
--- NOTE | 2017-07-31 17:51 | Neuropsychiatric Disch Summary ---
Discharge Information Date of admission: 07/07/17 17:41 Attending Physician: Gerson Medellin MD Primary care physician: Karena Haines MD Consults: 07/07/17 18:45 Case Management Consult [CONS] Routine Reason For Exam: H&P and Medical Managment Physician Consult [CONS] Routine Consulting Provider: Karoline Gamboa Reason For Exam: H&P and Medical Managment Ordering Provider has Notified Corrugated Fastener Driver: No - Discharge Diagnosis Discharge Diagnosis: Major neurocognitive Disorder with behavioral Disturbance - Laboratory Labs: 07/15/17 14:45 07/18/17 17:24 - Microbiology Microbiology 07/17/17 22:15 Urine, Voided (Cc/notcc) Urine Culture - Final Escherichia coli Date of Admission: 07/07/17 17:41 History of Present Illness: HPI: 81 Y/O CF with a hx of Schizoaffective Disorder sent from [facility] with acute mental status changes and increasing paranoia and delusions. Pt was noted to have a UTI recently but it appears the psychotic symptoms have been worsening for sometime. Nursing reports pt slept well and has had a good appetite. On face to face the pt is pleasant. She is only oriented to self. She scored a 5 on her SLUMS and is a poor historian. Her speech is disorganized and mumbled and we are unable to get an adequate hx at this time. She denies pain and does not appear to be in any distress. PAST PSYCH: Pt has a hx of Schizoaffective D/O and cognitive impairment. She is on Depakote, Seroquel, and Zoloft. She was recently on our unit for similar symptoms. Hospital Course This is a general summary of the patient's hospital course. For more details refer to the complete medical record. Hospital course: 07/08/17 11:59 Impression: Dementia with behavioral changes, paranoia and delusions, acute, present on admission. * Agree with the admission to generations unit for continued psychiatric evaluation and treatment. Provide safe and supportive environment. PRN medications as indicated Hypernatremia, acute, present on admission. * Sodium elevated on admission at 147. Encourage oral fluid intake. Recheck BMP on 07/10 to monitor electrolytes and renal function. Monitor throughout admission. Elevated TSH, acute on chronic, present on admission. * TSH elevated at 15.10 on admission. Nursing reports that patient has been selectively choosing which meds she will be compliant with. Suspect elevation is due to medication noncompliance. Will recheck on 07/14 for down trending after consistent treatment. If TSH remains elevated, consider dose adjustment at that time. UTI, acute, present prior to admission. * UTI diagnosed on 07/03 and treatment with Cipro initiated. Culture from 07/03 showed E. coli with multiresistance to sulfa and ampicillin. Cipro to be completed on 07/10. UA on admission was unremarkable. Recommend completion of treatment to avoid resistance. Schizoaffective disorders, chronic. * Treatment per psychiatric team. Major depressive disorder, chronic. * Treatment per psychiatric team. Hypertension, chronic. * Blood pressure fairly well controlled. Continue to monitor closely. Continue home Lasix 40mg. Hypercholesterolemia, possible new diagnosis. * Lipid panel on admission revealed hypercholesterolemia with total cholesterol 320. No current home treatment. Will initiate lovastatin and recommend follow up as outpatient with PCP following discharge. Diabetes, Type II, chronic. * No home treatment listed. Will provide carb controlled diet and check A1c now to assess for glucose control. Monitor BGMs in AM and HS. COPD, chronic. * No current treatment required. Monitor respiratory function closely. CHF, chronic. * Continue home Lasix 40mg daily. Monitor closely for fluid overload and monitor daily weights. Constipation, chronic. * Continue home Colace and lactobacillus. Miralax and MOM as needed. Parkinson's, chronic. * Monitor for gait instability. Upon discharge, patient's care will be returned to her PCP. 07/10/17 18:18 Continue current care 07/11/17 17:49 Increase Seroquel to 50mg PO BID and 100mg PO QHS. Change Depakote to DR 500mg PO BID 07/12/17 10:12 Continue current care 07/12/17 16:09 07/12/17- Patient is wheezy and appears fluid overloaded. (Diastolic HF, pEF) Will give extra dose of Lasix and single dose of KCL tonight. Repeat BMP in AM. If no improvement, consider CXR tomorrow. Add PRN albuterol for symptomatic relief. Continue remainder of medications. Screening labs ordered for Friday AM. continue Synthroid- consider recheck TSH in 2-4 weeks or prior to DC. 07/13/17 12:52 Continue current care 07/14/17 19:01 Increase HS Seroquel to 150mg 07/15/17 16:55 Continue current care 07/16/17 18:16 Pt continues to be irritable at times but improving. Will continue current meds 07/17/17 19:15 Improving but still remains irritable at times. Will continue current meds 07/18/17 CHF; rales on exam - repeat CXR now to f/u on previous abnormal one showing interstitial edema. Lasix was increased to BID on 07/14 - will repeat BMP now to reassess electrolytes. UTI - Cx again is growing out E. coli. She denies symptoms; she has no leukocytosis or fever. CrCl is only 23, which limits abx choices further if we would decide to treat. At this time will continue to monitor rather than initiating treatment. Repeat TSH. 07/18/17 17:41 Pt is improving. Still irritable at times. Continue current care 07/19/17 13:54 Pt improving. Continue current care 07/20/17 17:13 Anticipate D/C Friday Discharge Plan - Med Rec/Dispo Referrals/Follow Up: Karena Haines MD [Family Provider] - (Dr. Mikel Haines will see patient on rounds at the facility for Hosp. follow-up. . Dr. Haines's HEAD OF CYTOGENETICS [facility], will see patient on rounds at the facility for Mental Health follow-up.) Additional Instructions: Diagnosis: Major Neurocognitive Disorder with Behavioral Disturbance Reasons for Admission: Acute change in mental status, zero rationale thought, and delusional and tangential thought process. IN CASE OF PSYCHIATRIC EMERGENCY, CONTACT GENERATIONS STAFF AT [phone] ( available 24 hrs daily.) Patient's Lasix dose was increased for part of her stay due to fluid overload. Her home dose was resumed on discharge. Monitor weights when back at the detention. Contact patient's PCP if steadily increasing. Her TSH was also elevated, but it improved during her stay. (TSH 15 on admission and 7 on dismissal.) PCP to follow thyroid labs. Prescriptions: New Haloperidol [Haldol] 0.5 mg PO Q6H PRN #120 tablet PRN Reason: Extreme Agitation LORazepam [Ativan] 0.5 mg PO Q6H PRN #120 tablet PRN Reason: Extreme Agitation Sertraline [Zoloft] 100 mg PO DAILY #30 tablet Divalproex [Depakote] 500 mg PO BID #60 tablet Quetiapine [Seroquel] 150 mg PO HS #30 tablet Continue Docusate Sodium 100 mg PO DAILY #0 Furosemide 40 mg PO DAILY #0 Lactobacillus Acidophilus [Acidophilus Lactobacillus] 2 cap PO TID #0 Ondansetron [Ondansetron Odt] 4 mg PO Q8H PRN #0 PRN Reason: NAUSEA &/OR VOMITING Quetiapine Fumarate [Seroquel] 50 mg PO BID #60 tab Acetaminophen 650 mg PO Q4HR PRN #0 PRN Reason: PAIN Levothyroxine Sodium 175 mcg PO ACB #0 Discontinued Divalproex Sodium [Depakote ER] 750 mg PO HS #20 LORazepam [Ativan] 0.5 mg PO TID #0 Magnesium Hydroxide [Milk of Magnesia] 30 ml PO Q12H PRN #0 PRN Reason: CONSTIPATION Sertraline HCl 100 mg PO DAILY 30 Days #30 tab Ciprofloxacin HCl [Cipro] 500 mg PO BID Discharge Instructions/Outpatient Orders: Final Provider Discharge Instructions Location: Determined By Patient - Disposition 04 To [facility] Home/Facility
== END 2017-07-21 12:05 | DRG 884 ==
LOC: EDBD → ED 15:54 → GEN 17:41
PROVIDERS: ADMIT Psychiatry & Neurology Psychiatry; ATTEND Psychiatry & Neurology Psychiatry

== ENCOUNTER 2018-04-05 13:34 | Inpatient (IN) ==
[2018-04-05] MEDS ORDERED: NS 1,000 ML IV ONE (14:04)
--- NOTE | 2018-04-05 14:04 | Emergency Department Report ---
General Adult HPI - General Chief complaint: Medical Emergency Stated complaint: choking Time Seen by Provider: 04/05/18 13:38 Source: patient, EMS, RN notes reviewed, old records reviewed Mode of arrival: EMS Limitations: altered mental status (Dementia) - History of Present Illness HPI narrative: 82yo woman present to the ER by EMS from [place]. Pt was eating lunch today, when she began choking. On arrival, pt was unresponsive; SaO2 was in the 50s. After initially assessing for intubation, they were able to clear pts O/P and they placed pt on 15L O2 by NRB. En route, pts FiO2 was gradually titrated to 7L and pt returned to baseline mentation and was able to converse. Onset (ago): minute(s) - Related Data Home Medications Medication Instructions Recorded Confirmed Acetaminophen 325 mg PO Q4HR #0 08/30/15 04/05/18 Citalopram Hydrobromide [Celexa] 20 mg PO DAILY 04/05/18 04/05/18 Docusate Sodium 100 mg PO DAILY 04/05/18 04/05/18 Furosemide [Lasix] 40 mg PO DAILY 04/05/18 04/05/18 Levothyroxine Tab [Synthroid] 150 mcg PO ACB 04/05/18 04/05/18 Milk of Magnesia [Mom] 30 ml PO PRN 04/05/18 04/05/18 Multivitamin [One Daily] 1 each PO DAILY 04/05/18 04/05/18 Omeprazole 20 mg PO DAILY 04/05/18 04/05/18 Quetiapine [Seroquel] 100 mg PO HS 04/05/18 04/05/18 RisperiDONE LA [RisperDAL Consta] 0.5 ml IM Q14D 04/05/18 04/05/18 Allergies Allergy/AdvReac Type Severity Reaction Status Date / Time Penicillins Allergy Mild RASH Verified 04/05/18 13:49 cefuroxime Allergy Unknown Verified 04/05/18 13:49 Review of Systems Limitations: ROS unobtainable due to patient's medical condition PFS Patient Stated Medical History Dementia Yes: WITH BEHAVIORS Parkinson's Disease Yes Dental Problems Yes: dentures Congestive Heart Failure Yes Hypertension Yes Other Cardiology Yes: LEFT VENTRICULAR FAILURE Chronic Obstructive Pulmonary Yes Disease (COPD) Diabetes Mellitus Type 2 Yes Hx Incontinence Yes Hx Urinary Tract Infection Yes Other Musculoskeletal Yes: REPEATED FALLS Bipolar Disorder Yes Depression Yes Schizophrenia Yes Other Behavioral Health Yes: MAJOR DEPRESSIVE DISORDER Surgical History: Unable to obtain - Social History Smoking status: Former smoker Substance use type: does not use Alcohol intake frequency: does not drink Housing: longterm Current occupational status: retired Current residence: [facility] Physical Exam - Limitations Limitations: no limitations - General General appearance: alert, in no apparent distress, obese - Normal Exams: Head:: Normocephalic without trauma Eyes:: Pupils are PERRLA w/ EOMI, No scleral icterus, irritation, or foreign bodies noted ENMT:: No facial trauma, nasal exudates, pharyngeal erythema Lymphatic:: No lymphadenopathy Musculoskeletal:: No tenderness, or deformity noted Neurological:: Patient is alert, cranial nerves, motor/sensory/cerebellar, exams w/o gross deficits Psychiatric:: Patient exhibits, appropriate attention - Chest Chest inspection: Present: symmetric chest wall rise, rash (Ecchymotic rash over pt's left chest surrounding site of former lumpectomy.). Absent: normal inspection, tenderness - Respiratory Respiratory exam: Present: crackles. Absent: normal lung sounds bilaterally, respiratory distress, wheezes, stridor, prolonged expiratory phase - Cardiovascular Cardiovascular exam: Present: regular rate, normal rhythm, normal heart sounds. Absent: rubs, gallop, clicks - Abdominal Exam Abdominal exam: Present: soft, normal bowel sounds. Absent: distention, tenderness, guarding, rebound, rigidity - Skin Skin exam: Present: warm, dry, intact, rash Course - Consultations Consultation #1: Hospitalist: Will admit for observation after choking and aspiration. Time: 14:58 Vital Signs Temperature 98.8 F 04/05/18 13:35 Pulse Rate 87 04/05/18 13:35 Respiratory Rate 22 04/05/18 13:35 Blood Pressure 137/62 04/05/18 13:35 Pulse Oximetry 95 04/05/18 13:35 Temperature 97.7 F 04/05/18 16:32 Pulse Rate 77 04/05/18 17:05 Respiratory Rate 24 04/05/18 16:32 Blood Pressure 120/61 04/05/18 15:54 Pulse Oximetry 93 04/05/18 16:32 Medical Decision Making - MDM Narrative Medical decision making narrative: Unable to treat with first-line atbx (amp-sulbac), due to PCN allergy. Also unable to treat with second-line (amox/metro), due to cephalosporine allergy. Will treat with 3rd line (clinda), with inherent risks of C-diff. Contacted hospitalist for further observation after choking/aspiration. - Differential Diagnosis CVA, aspiration, s/p choking - Medical Records Medical records reviewed: Yes: I reviewed the patient's medical records. - Lab Data Lab results reviewed: Yes: I reviewed the patient's lab results. Result diagrams: 04/05/18 14:11 04/05/18 14:11 Lab Results 04/05/18 04/05/18 Range/Units 14:11 14:11 WBC 12.1 H (4.5-11.0) T/MM3 RBC 4.01 (4.00-5.20) M/MM3 Hgb 12.3 (12-16) GM/DL Hct 37.9 (36-46) % MCV 94.5 (80-100) UM3 MCH 30.7 (26-34) UUG MCHC 32.5 (31-37) GM/DL RDW Std Deviation 48.3 (36.9-50.2) FL Plt Count 329 (130-400) T/MM3 MPV 10.0 (9.4-12.4) UM3 Immature Gran % (Auto) 0.8 H (0.0-0.5) % Neut % (Auto) 75.6 H (33-66) % Lymph % (Auto) 13.6 L (23-45) % [place] % (Auto) 7.5 (0-9.0) % Eos % (Auto) 2.1 (0-4) % Baso % (Auto) 0.4 (0-2) % Neut # (Auto) 9.2 H (1.8-7.7) T/MM3 Lymph # (Auto) 1.7 (1-4.8) T/MM3 [place] # (Auto) 0.9 H (0-0.8) T/MM3 Eos # (Auto) 0.3 (0-0.5) T/MM3 Baso # (Auto) 0.1 (0-0.2) T/MM3 Abs Immat Gran (auto) 0.10 H (0.00-0.03) T/MM3 Turbidity < 20 (0-20) Sodium 140 (134-144) MEQ/L Potassium 3.9 (3.6-5) MEQ/L Chloride 96 L (98-107) MEQ/L Carbon Dioxide 30 (22-30) MEQ/L Anion Gap 14 (5-15) meq/L BUN 16.0 (7-17) MG/DL Creatinine 0.9 (0.7-1.2) mg/dL GFR Calculation 60 BUN/Creatinine Ratio 18 (6-26) RATIO Glucose 192 H (65-110) MG/DL Calculated Osmolality 275 (261-280) MOSM/KG Calcium 9.0 (8.4-10.2) MG/DL Icterus Index < 2 (0-7) Specimen Hemolysis < 15.0 (0-25) - Radiology Data Radiology results reviewed: Yes: I reviewed the patient's radiology results. CXR: Diffuse, b/l pulm infiltrates, worse than on prior films. Concern for aspiration/pneumonitis. CT Head: IMPRESSION: Chronic age related changes but no evidence of acute intracranial pathology. Disposition Clinical Impression: Aspiration pneumonia Qualifiers: Aspiration pneumonia type: due to regurgitated food Laterality: bilateral Lung location: unspecified part of lung Qualified Code(s): J69.0 - Pneumonitis due to inhalation of food and vomit Disposition: [facility] Condition: Stable - Seen By: physician
--- OUTSIDE RECORDS SUMMARY | 2018-04-05 14:15 | External Medical Summary | Referral Summary ---
:1935 Author Organization [facility] Address [address] [place] [address] Care Team Providers Name Role Phone Karena Haines Primary Care Physician Encounter [facility] Date(s): 07/28/17 - 07/29/17 [facility] [address] [place] [address] [place] Discharge Disposition: 03-Detention Facility Attending Physician: Shasta Frederick DO Admitting Physician: Carole Lui MD Vital Signs Most recent to oldest [Reference Range]: 1 Temperature Oral [35.8-37.3 degC] 36.4 degC (07/29/17 11:00 AM) Peripheral Pulse Rate [60-100 bpm] 75 bpm (07/29/17 11:00 AM) Heart Rate Monitored [60-100 bpm] 69 bpm (07/29/17 12:55 AM) Respiratory Rate [14-20 br/min] 20 br/min (07/29/17 11:00 AM) Blood Pressure [90-140/60-90 mmHg] 107/66 mmHg (07/29/17 11:00 AM) Mean Arterial Pressure, Cuff 96 mmHg (07/28/17 11:55 PM) SpO2 93 % (07/29/17 11:00 AM) Problem List Condition Effective Dates Status Health Status Informant At risk of pressure sore(Confirmed) Active Allergies, Adverse Reactions, Alerts Substance Reaction Severity Status penicillin Active Ceftin Active Medications acetaminophen 325 mg oral capsule 650 mg 2 caps, Oral, q4hr, as needed for pain, 0 Refill(s) Start Date: 07/29/17 Status: OrderedAcidophilus oral capsule 2 caps, Oral, TID, 0 Refill(s) Start Date: 07/29/17 Status: OrderedCommunication Med list from [facility], 0 Refill(s) Start Date: 07/29/17 Status: Ordereddivalproex sodium 500 mg oral delayed release tablet 500 mg 1 tabs, Oral, BID, 0 Refill(s) Start Date: 07/29/17 Status: Ordereddocusate sodium 100 mg oral capsule 100 mg 1 caps, Oral, Daily Start Date: 07/29/17 Status: Orderedhaloperidol 0.5 mg oral tablet 0.5 mg 1 tabs, Oral, q6hr, as needed, 0 Refill(s) Start Date: 07/29/17 Status: OrderedLasix 40 mg oral tablet 40 mg 1 tabs, Oral, Daily, 0 Refill(s) Start Date: 07/29/17 Status: Orderedlevothyroxine 175 mcg (0.175 mg) oral tablet 175 mcg 1 tabs, Oral, Daily, 0 Refill(s) Start Date: 07/29/17 Status: OrderedLORazepam 0.5 mg oral tablet 0.5 mg 1 tabs, Oral, q6hr, as needed for anxiety, 0 Refill(s) Start Date: 07/29/17 Status: OrderedMilk of Magnesia 8% oral suspension 2.4 g 30 mL, Oral, Bedtime (once a day), as needed for constipation, 0 Refill(s) Start Date: 07/29/17 Status: OrderedSEROquel 100 mg oral tablet 150 mg 1.5 tabs, Oral, Bedtime (once a day), 0 Refill(s) Start Date: 07/29/17 Status: OrderedSEROquel 50 mg oral tablet 50 mg 1 tabs, Oral, BID, 0900,1500, 0 Refill(s) Start Date: 07/29/17 Status: OrderedZofran 4 mg oral tablet 4 mg 1 tabs, Oral, q8hr, as needed, 0 Refill(s) Start Date: 07/29/17 Status: OrderedZoloft 100 mg oral tablet 100 mg 1 tabs, Oral, Daily, 0 Refill(s) Start Date: 07/29/17 Status: Ordered Results Blood Gases Most recent to oldest [Reference Range]: 1 pH [7.35-7.45] 7.38 (07/29/17 2:26 AM) pCO2 Art [35-45 mmHg] 47 mmHg *HI* (07/29/17 2:26 AM) Bicarbonate [22-26 mEq/L] 28 mEq/L *HI* (07/29/17 2: AM) Base Excess Art [0-2] 2 (07/29/17 2:26 AM) O2 Sat Art [90.0-97.0 %] 96.0 % (07/29/17 2:26 AM) pO2 Art [80-100 mmHg] 83 mmHg (07/29/17 2:26 AM) LPM Art 2.0 L/min (07/29/17 2:26 AM) O2 Panel 2L NC (07/29/17 2:26 AM) Spec Site A. radialis r. (07/29/17 2:26 AM) Hematology Most recent to oldest [Reference Range]: 1 WBC [4.8-10.8 10*3/uL] 11.0 10*3/uL *HI* (07/28/17 8:04 PM) RBC [4.00-5.20] 4.80 (07/28/17 8:04 PM) Hgb [12.0-16.0 gm/dL] 15.0 gm/dL (07/28/17 8:04 PM) Hct [37.0-47.0 %] 45.5 % (07/28/17 8:04 PM) MCV [82.0-99.0 fL] 94.8 fL (07/28/17 8:04 PM) MCH [27.0-32.0 pg] 31.3 pg (07/28/17 8:04 PM) MCHC [32.0-36.0 gm/dL] 33.0 gm/dL (07/28/17 8:04 PM) RDW [11.5-14.5 %] 16.3 % *HI* (07/28/17 8:04 PM) Platelet [150-400 10*3/uL] 433 10*3/uL *HI* (07/28/17 8:04 PM) MPV [9.4-12.4 fL] 10.9 fL (07/28/17 8:04 PM) Immature Granulocytes [0.0-1.0 %] 0.4 % (07/28/17 8:04 PM) Neutrophils [51-75 %] 70 % (07/28/17 8:04 PM) Lymphocytes [20-46 %] 18 % *LOW* (07/28/17 8:04 PM) Monocytes [4-11 %] 11 % (07/28/17 8:04 PM) Eosinophils [0-4 %] 1 % (07/28/17 8:04 PM) Basophils [0-2 %] 0 % (07/28/17 8:04 PM) Neutro Absolute [1.90-7.00] 7.75 *HI* (07/28/17 8:04 PM) Lymph Absolute [0.80-3.30] 1.96 (07/28/17 8:04 PM) [place] Absolute [0.30-1.00] 1.15 *HI* (07/28/17 8:04 PM) Eos Absolute [0.00-0.50] 0.06 (07/28/17 8:04 PM) Baso Absolute [0.00-0.20] 0.04 (07/28/17 8:04 PM) Nucleated RBC Automated [0 /100 WBC] 0.0 /100 WBC (07/28/17 8:04 PM) Chemistry Most recent to oldest [Reference Range]: 1 Sodium Lvl [136-144 mEq/L] 140 mEq/L (07/28/17 8:04 PM) Potassium Lvl [3.6-5.1 mEq/L] 3.5 mEq/L *LOW* (07/28/17 8:04 PM) Chloride [99-109 mEq/L] 102 mEq/L (07/28/17 8:04 PM) CO2 [22-32 mEq/L] 28 mEq/L (07/28/17 8:04 PM) AGAP [3-20 mEq/L] 10 mEq/L (07/28/17 8:04 PM) BUN [4-20 mg/dL] 38 mg/dL *HI* (07/28/17 8:04 PM) Glucose Lvl [70-100 mg/dL] 104 mg/dL *HI* (07/28/17 8:04 PM) Creatinine Lvl [0.44-1.03 mg/dL] 1.29 mg/dL *HI* (07/28/17 8:04 PM) eGFR [>60 mL/min] 40 mL/min 1 *ABN* (07/28/17 8:04 PM) Calcium Lvl [8.6-10.0 mg/dL] 9.6 mg/dL (07/28/17 8:04 PM) Albumin Lvl [3.5-4.8 gm/dL] 3.7 gm/dL (07/28/17 8:04 PM) Total Protein [6.1-7.9 gm/dL] 7.7 gm/dL (07/28/17 8:04 PM) Globulin [1.9-4.3 gm/dL] 4.0 gm/dL (07/28/17 8:04 PM) ALT [14-54 U/L] 24 U/L (07/28/17 8:04 PM) AST [15-41 U/L] 33 U/L (07/28/17 8:04 PM) Alk Phos [26-104 U/L] 94 U/L (07/28/17 8:04 PM) Bili Total [0.2-1.2 mg/dL] 1.0 mg/dL 2 (07/28/17 8:04 PM) Lipase Lvl [8-48 U/L] 33 U/L (07/28/17 8:04 PM) Lactic Acid Lvl [0.5-2.2 mEq/L] 1.3 mEq/L (07/28/17 9:55 PM) Vitamin B12 Lvl [213-816 pg/mL] 573 pg/mL (07/29/17 7:34 AM) Folate Lvl [7.0-31.4 ng/mL] 13.8 ng/mL (07/29/17 7:34 AM) Blood Glucose, Capillary [70-100 mg/dL] 99 mg/dL (07/29/17 2:23 PM) T4 Free [0.7-1.5 ng/dL] 0.7 ng/dL (07/29/17 7:34 AM) TSH with Reflex Free T4 [0.35-4.94] 11.24 *HI* (07/29/17 7:34 AM) Procalcitonin [0.00-0.09 ng/mL] <0.05 ng/mL 3 (07/29/17 7:34 AM) 1Result Comment: Multiply eGFR results by 1.21 for race.2Result Comment: Naproxen, specifically the metabolite O-desmethylnaproxen, may cause spurious elevation in Total Bilirubin levels.3Result Comment: Normal: <0.1 ng/mL (infants >72 hrs - adults) Suspected Lower Respiratory Tract Infection 0.10-0.25 ng/mL=Low likelihood for bacterial infection; Antibiotics discouraged. >0.25 ng/mL=Increased likelihood for bacterial infection; Antibiotics encouraged. Suspected Sepsis: Strongly consider initiating antibiotics in all unstable patients. 0.10-0.50 ng/mL=Low likelihood for sepsis; Antibiotics discouraged. >0.50 ng/mL=Increased likelihood for sepsis; Antibiotics encouraged. Decisions on antibiotic use should not be based solely on procalcitonin levels. If antibiotics are administered, repeat procalcitonin testing should be obtained every 2-3 days to consider early antibiotic cessation. PCT is a dynamic biomarker and most useful when trends are analyzed over time in accompaniment with other clinical data. Interpretation should be based upon clinical context and algorithms.Therapeutic Drug Monitoring Most recent to oldest [Reference Range]: 1 Valproic Acid Lvl [50-125 ug/mL] <10 ug/mL *LOW* (07/29/17 7:34 AM) Urinalysis Most recent to oldest [Reference Range]: 1 UA Color Yellow (07/28/17 8:04 PM) UA Appear Clear (07/28/17 8:04 PM) UA pH [5.0-8.0] 5.0 (07/28/17 8:04 PM) UA Leuk Est [Negative] Negative (07/28/17 8:04 PM) UA Nitrite [Negative] Negative (07/28/17 8:04 PM) UA Protein [Negative] Negative (07/28/17 8:04 PM) UA Glucose [Negative] Negative (07/28/17 8:04 PM) UA Ketones [Negative] Trace *ABN* (07/28/17 8:04 PM) UA Urobilinogen [<1.0 mg/dL] 2.0 mg/dL *ABN* (07/28/17 8:04 PM) UA Bili [Negative] Negative (07/28/17 8:04 PM) UA Blood [Negative] Negative (07/28/17 8:04 PM) UA Spec Grav [1.003-1.030] 1.020 (07/28/17 8:04 PM) Type Clean Catch (07/28/17 8:04 PM) Microbiology Reports TEST:Blood Culture STATUS:Order in Progress BODY SITE: SOURCE:Blood COLLECTED DATE/TIME:07/28/17 9:55 PMBlood CultureNo growth after 12 hours incubation. Nursing unit/client will be called if growth is detected. -TEST:Blood Culture STATUS:Order in Progress BODY SITE: SOURCE:Blood COLLECTED DATE/TIME:07/28/17 9:55 PMBlood CultureNo growth after 12 hours incubation. Nursing unit/client will be called if growth is detected. - Procedures Procedure Date Related Diagnosis Body Site Arterial puncture, withdrawal of blood for 07/29/17 diagnosis
--- OUTSIDE RECORDS SUMMARY | 2018-04-05 14:16 | External Medical Summary | Referral Summary ---
:1935 Author Organization [facility] Address [address] [place] [address] [place] [address] Care Team Providers Name Role Phone Karena Haines Primary Care Physician Encounter [facility] [id number] Date(s): 09/18/15 - 09/18/15 [facility] [place] [address] [place] Discharge Disposition: 01-Home or Self Care Attending Physician: Thalia Grace APRN Admitting Physician: Thalia Grace APRN Vital Signs No data available for this section Problem List No data available for this section Allergies, Adverse Reactions, Alerts No data available for this section Medications LORazepam 0.5 mg oral tablet 0.5 mg 1 tabs, Oral, TID, for anxiety. [phone] [facility], # 90 tabs, 0 Refill(s) Start Date: 03/07/16 Status: OrderedNorco 5 mg-325 mg oral tablet 1 tabs, Oral, q4hr, as needed for pain, [facility] [phone], # 120 tabs , 0 Refill(s) Start Date: 03/08/16 Status: Ordered Results No data available for this section Immunizations No data available for this section Procedures No data available for this section Social History No data available for this section Assessment and Plan No data available for this section
[2018-04-05] MEDS: SALINE FLUSH 10ml SYRINGE IVF PRN (14:42)
[2018-04-05] MEDS: CLINDAMYCIN PB 600 MG/50 ML BAG IV SCH ×2 (14:43→21:16)
--- NOTE | 2018-04-05 15:30 | History & Physical Report ---
History of Present Illness Date: 04/05/18 (PCP Dr. Haines) Chief complaint: Aspiration with near syncope HPI: Chapis is seen today in the ED due to an acute aspiration event. She had apparently choked while eating lunch and became non-responsive. When EMS arrived , they were able to revive her. Her sats upon EMS arrival were in the 50's. She did not suffer a cardio-pulmonary arrest, and was able to be aroused at the scene. She was brought into the ER for further assessment. In the ER, she has continued to require O2 in the 5-7L range. She was noted to have bilateral infiltrates on CXR and possible pulmonary edema as well. Leukocytosis is noted on lab results. She is being admitted for further evaluation and treatment. She is a resident at [facility]. Upon review of her record, she was noted to have aspiration concerns in 2014 and was recommended that she be on a pureed diet with regular liquids. Chapis is able to tell me that she chokes quite a bit when she eats. She is a fairly poor historian, but is alert and able to converse to some degree. Review of Systems ROS unobtainable: due to mental status (Limited. ) All systems PM: 10-point ROS was reviewed, no additional remarkable complaints except - Respiratory Respiratory: Present: cough, dyspnea, chest congestion - Gastrointestinal Gastrointestinal: Present: dysphagia Past Medical History Medical History Updates: Hypercholesterolemia. Hypothyroidism. Dementia. Hypertension. COPD. DM2, Type 2. Schizoaffective DO. MDD/JASMINA. Parkinson's. Morbid obesity. Constipation. BrCA. CHF. BPAD. OA. UTI. Remote hx of S.I./ ECT Surgical History: Left partial mastectomy secondary to breast cancer. Carpal tunnel repair. Echo 08/2015: EF 69%, 2/4 diastolic dysfunction Family History: DM2 per record Family History: As Above - Social History Smoking status: Former smoker Substance use type: does not use Housing: senior living Current residence: Group Home Medications Home Medications Medication Instructions Recorded Confirmed Type Acetaminophen 325 mg PO Q4HR #0 08/30/15 04/05/18 History Citalopram Hydrobromide [Celexa] 20 mg PO DAILY 04/05/18 04/05/18 History Docusate Sodium 100 mg PO DAILY 04/05/18 04/05/18 History Furosemide [Lasix] 40 mg PO DAILY 04/05/18 04/05/18 History Levothyroxine Tab [Synthroid] 150 mcg PO ACB 04/05/18 04/05/18 History Milk of Magnesia [Mom] 30 ml PO PRN 04/05/18 04/05/18 History Multivitamin [One Daily] 1 each PO DAILY 04/05/18 04/05/18 History Omeprazole 20 mg PO DAILY 04/05/18 04/05/18 History Quetiapine [Seroquel] 100 mg PO HS 04/05/18 04/05/18 History RisperiDONE LA [RisperDAL Consta] 0.5 ml IM Q14D 04/05/18 04/05/18 History Allergies Allergy/AdvReac Type Severity Reaction Status Date / Time Penicillins Allergy Mild RASH Verified 04/05/18 13:49 cefuroxime Allergy Unknown Verified 04/05/18 13:49 Exam Vital Signs: Temperature 98.8 F 04/05/18 13:35 Pulse Rate 80 04/05/18 14:46 Respiratory Rate 22 04/05/18 13:35 Blood Pressure 118/58 04/05/18 14:46 Pulse Oximetry 96 04/05/18 14:46 Telemetry Rhythm: Sinus Tachycardia - Constitutional Present: mild distress, obese, cooperative, other (Confused. Speech is a bit slurred at baseline. ) - Routine HEENT Exam Head: Present: normocephalic, atraumatic Eye: Present: EOMI. Absent: PERRL (Abnomal left pupil c/w cataract surgery) - Routine Neck Exam Present: supple, trachea midline. Absent: JVD, swelling - Routine Respiratory Exam Present: dyspnea (Very mild SOA at rest. ), rhonchi, crackles, diminished air movement - Routine Cardiovascular Exam Present: RRR, S1, S2, no murmur - Routine Abdominal Exam Present: soft, normoactive bowel sounds, non distended, non tender - Routine Extremities Exam Present: no edema, non tender, pulses intact (Appearance c/w chronic vascular disease. ) - Routine Skin Exam Present: intact, dry, warm - Routine Neurological Exam Present: alert, moving all extremities. Absent: oriented X3 (MIld confusion? ) - Routine Psychiatric Exam Present: cooperative Results - Labs CBC & Chem 7: 04/05/18 14:11 04/05/18 14:11 - Imaging and Cardiology Chest x-ray Status: image reviewed by me, pending Additional comments: Cardiomegaly. Appears to have bilateral infiltrates +/- some edema. Assessment and Plan (1) Acute aspiration pneumonia Current visit: Yes Status: Acute (2) Acute respiratory failure with hypoxia Current visit: Yes Status: Acute Assessment and Plan: Impression: Acute aspiration event with syncope/collapse Acute respiratory failure with hypoxia Aspiration pneumonia/pneumonitis Possible fluid overload. Parkinson's with memory changes Known history of dysphagia DM2 Depression/JASMINA/BPAD Plan: 04/05/18 Monitor on oxygen overnight. Antibiotics for coverage of likely aspiration event- Clindamycin. Allergy to both PCN and Cephalosporins. O2, PRN suction. Ask ST to see patient for further evaluation. Monitor BG. Monitor labs closely. NPO until ST sees pt. May take meds with sips. Follow CXR. Add LMWH for DVT PX. Add PPI due to aspiration event. Lasix x 1 upon admission. Full code per [facility] paperwork. DVT Prophylaxis: Lovenox GI Prophylaxis: Protonix Resuscitation Status: Full Code (Per [facility] records.) - Physician Narrative Physician: Mirna Barraza MD Narrative: Date: 04/05/18 Time: 1904 I have independently evaluated and examined this patient. I reviewed the chart, the patient's history, and the FILM WASHER/PA's documented findings as above. We discussed and formulated the assessment and plan as above with additions as below: Mrs. Flowers was transferred to the emergency room after aspirating/choking at lunch. She was unresponsive and had oxygen saturations in the 50s when EMS arrived on the scene. They were able to clear her upper airway manually prior to transferring. She initially required 15 L O2 by nonrebreather mask but while transferring from [place] to [place] oxygen was titrated down to 7 L and patient subsequently has been titrated further with maintenance of saturation. One episode of emesis was reported by EMS. The patient is very dysarthric and limited speech is understood. She denies repeated episodes of aspiration in the past. She was apparently able to tell the emergency room physician that she was eating sweet potatoes when all the trouble started today. NAD, dysarthric; saturation 95%-2 L, 97.7 Respirations nonlabored, crackles/coarse sounds at the bases bilaterally; no wheezing Chest x-ray by my review demonstrates L>R infiltrates, increased vascular markings bilaterally Head CT is also been reviewed by myself demonstrating moderate atrophy, white matter changes consistent with small vessel disease, old lacunar infarcts in the basal ganglia, but no acute pathology. Minor leukocytosis Probable aspiration pneumonitis +/-aspiration pneumonia-clindamycin empirically overnight, reassess status in a.m. Unclear present that continued antibiotics will be needed. At present patient is not coughing and respirations are nonlabored. Discussed with Dr. Farmer. Old records reviewed. Hospital Course Summary Disclaimer: The visit summary below is not to be considered part of the above Progress Note. Hospital Course: Impression: Acute aspiration event with syncope/collapse Acute respiratory failure with hypoxia Aspiration pneumonia/pneumonitis Possible fluid overload. Parkinson's with memory changes Known history of dysphagia DM2 Depression/JASMINA/BPAD Plan: 04/05/18 Monitor on oxygen overnight. Antibiotics for coverage of likely aspiration event- Clindamycin. Allergy to both PCN and Cephalosporins. O2, PRN suction. Ask ST to see patient for further evaluation. Monitor BG. Monitor labs closely. NPO until ST sees pt. May take meds with sips. Follow CXR. Add LMWH for DVT PX. Add PPI due to aspiration event. Lasix x 1 upon admission. Full code per [facility] paperwork.
[2018-04-05] MEDS ORDERED: FUROSEMIDE 20 MG/2 ML INJECTION IVP ONE (15:49)
[2018-04-05] MEDS ORDERED: FALL RISK - PHARMACY CONSULT MC ONE (15:57)
[2018-04-05] MEDS ORDERED: PANTOPRAZOLE 40 MG INJECTION IVP SCH (16:00)
[2018-04-05] MEDS: NS 1,000 ML IV SCH (17:19)
[2018-04-05] MEDS: ACETAMINOPHEN 325 MG TABLET PO PRN (17:21)
[2018-04-05] MEDS: ONDANSETRON 4 MG/2 ML INJECTION IVP PRN (19:39)
[2018-04-05] MEDS: QUETIAPINE 100 MG TABLET PO SCH (21:16)
[2018-04-06] MEDS: NS 1,000 ML IV SCH ×3 (00:48→22:57)
[2018-04-06] MEDS: ACETAMINOPHEN 325 MG TABLET PO PRN (04:10)
[2018-04-06] MEDS: ALBUTEROL 2.5mg/3ml (0.083%) NEB AEROSOL PRN ×2 (05:09→08:00)
[2018-04-06] MEDS: CLINDAMYCIN PB 600 MG/50 ML BAG IV SCH ×3 (06:11→22:56)
[2018-04-06] MEDS: OMEPRAZOLE 20 MG CAPSULE PO SCH (06:54)
--- NOTE | 2018-04-06 07:34 | XRay Report ---
EXAM: XR chest 1V HISTORY: Aspiration COMPARISON: Prior examination dated 04/05/2018 FINDINGS: Lung marin are hypoventilated. The heart is mildly enlarged. Trachea is midline is no evidence of mediastinal widening. There has been interval worsening of the acute patchy infiltrate extending over the left mid and lower lung zones. There is also worsening of the interstitial process in the right lung which may represent interstitial edema. These findings are superimposed over underlying diffuse fibrotic lung changes which limits the assessment of the pulmonary vascularity. There is blunting of the left costophrenic angle. The right costophrenic angle appears clear. The bony thorax appears stable. There is artifact in cardiac monitoring lead wires over the chest. IMPRESSION: 1. Interval worsening of the patchy infiltrate superimposed on the left mid and lower lung zones. There is an associated small left pleural effusion. 2. The heart is mildly enlarged and underlying congestive changes are not excluded. 3. Underlying fibrotic changes. .
--- NOTE | 2018-04-06 07:59 | CT Scan Report ---
Indication: choking PROCEDURE: CT head/brain wo con: Encounter: Initial Comparison: 08/23/2017 Technique: Axial CT images through the head were performed without contrast. Iterative Reconstruction dose reducing technique was utilized. FINDINGS: Moderate atrophy. The ventricles are of normal size, shape, and contour for the patient's age. There are scattered areas of low attenuation in the white matter which most likely represent changes from chronic microvascular ischemia. The brainstem, cerebellum, and cerebral hemispheres otherwise have a normal morphology and CT attenuation. There is no evidence of midline displacement. No hemorrhage, signs of acute territorial stroke, mass effect, mass lesions, or edema is evident. The visualized portions of the skull base, midface, and calvarium demonstrate no abnormality. The paranasal sinuses are well aerated and free of significant disease. The tympanic and mastoid cavities appear normal. IMPRESSION: No acute intracranial abnormality or hemorrhage. There is a preliminary report by Myrl. .
--- NOTE | 2018-04-06 08:00 | XRay Report ---
INDICATION: Choking PROCEDURE: CHEST 2-VIEWS UPRIGHT (PA & LAT) Encounter: Initial COMPARISON: August 23, 2017 FINDINGS: Worsening airspace disease in the left lung. Trace pleural effusions. No pneumothorax. Cardiac silhouette remains enlarged. Mediastinal contours are stable. Pulmonary vascularity is mildly prominent. Impression: Left-sided pneumonia or aspiration with mild vascular congestion. .
--- NOTE | 2018-04-06 09:06 | Progress Note ---
- Date 04/06/18 Subjective: Chapis was somnolent this morning. Her nurse reported that she had low blood pressure of 89/42 and the telehosp ordered NS 500 bolus. Sats also dropped into the 70s and oxygen was increased to 7L temporarily and later was decreased to 3L after breathing treatment administered. Upon my arrival she was breathing shallow with upper airway noises. She had a temp of 100.7. She requires frequent suctioning of yellow mucoid secretions. She is NPO. She opened her eyes with verbal, but her responses were difficult to understand - was able to decifer that she denied any pain at the moment. RN also noted bruising to left anterior chest wall - there was a firm mass palpated and the patient tried to move my hand away on palpation. Objective Vital signs: Temperature 100.7 F H 04/06/18 07:16 Pulse Rate 86 04/06/18 07:16 Respiratory Rate 26 H 04/06/18 07:16 Blood Pressure 104/44 04/06/18 07:16 Pulse Oximetry 92 04/06/18 07:16 Rhythm: Sinus Tachycardia Height/Weight/BMI: Height 1.55 m Weight 95.1 kg Body Mass Index 39.6 - Constitutional Present: well nourished, well developed, somnolent - Routine HEENT Exam Head: Present: normocephalic Eye: Absent: PERRL (mis-shapen left pupil), conjunctival icterus, scleral injection - Routine Respiratory Exam Present: decreased breath sounds, wheezes Comments: upper airway secretions - Routine Cardiovascular Exam Present: RRR, S1, S2 - Routine Abdominal Exam Present: soft, non distended, non tender. Absent: normoactive bowel sounds ( hypoactive) - Routine Extremities Exam Present: edema (2+ edema in legs; arms also with edema) - Routine Skin Exam Present: intact, dry, warm, ecchymosis (left chest wall - possible hematoma, + tender, - warm) - Routine Neurological Exam Present: alert (at times). Absent: facial asymmetry - Routine Psychiatric Exam Present: cooperative Results - Labs CBC & Chem 7: 04/06/18 05:39 04/06/18 05:39 Microbiology Results: Microbiology 04/06/18 08:03 Peripheral/Iv Start Blood Culture - Preliminary Culture Initiated - Results Pending 04/06/18 08:20 Peripheral/Iv Start Blood Culture - Preliminary Culture Initiated - Results Pending Assessment and Plan (1) Acute aspiration pneumonia Current visit: Yes Status: Acute (2) Acute respiratory failure with hypoxia Current visit: Yes Status: Acute Assessment and Plan: Impression: Acute aspiration event with syncope/collapse Acute respiratory failure with hypoxia, hypercapnia, respiratory acidosis Aspiration pneumonia/pneumonitis Possible fluid overload. Ecchymosis left anterior chest wall Parkinson's with memory changes Known history of dysphagia DM2 Depression/JASMINA/BPAD Pyuria-RLL 04/06/18 Plan: 04/06/18 Hypoxia, somnolence - ABG ordered, showing respiratory acidosis (pH 7.29, PCO2 62, PO2 64 on 10L) - BiPAP trial ordered. CXR reviewed and compared to previous: left sided infiltrate more prominent. Hypotension overnight requiring 500 mL fluid bolus - BP low-normal currently and IVF are not infusing. SIRS criteria noted: Fever (100.7), tachypnea, leukocytosis - sepsis w/u ordered. Lactate and procalcitonin were normal. BC drawn. UA pending (RN will need to straight cath d/t incontinence. Cont clinda for aspiration. Continue suctioning, breathing treatments, speech therapy. Soft tissue ultrasound ordered to delineate firmness to left chest wall. Discussed with RN, RT, Dr. Barraza. DVT Prophylaxis: Lovenox GI Prophylaxis: other - Physician Narrative Physician: Mirna Barraza MD Narrative: Date: 04/06/18 Time: 1714 I have independently evaluated and examined this patient. I reviewed the chart, the patient's history, and the PROJECT BUYER/PA's documented findings as above. We discussed and formulated the assessment and plan as above with additions as below: Mrs. Sesay was on BiPAP when seen; she repetitively pointed toward her legs and then patted her lower abdomen-apparently indicating that her adult diaper is wet. Speech is very mumbled and virtually no speech can be understood. Last blood pressure was 104/64 and oxygen saturations have been in the mid 90s with BiPAP. Alert, unable to provide historical information Coarse breath sounds bilaterally L>R, with diminished breath sounds in the anterior/lateral left lung field Chest x-ray reviewed by myself revealing dense infiltrate in the left lower lobe -much more prominent than x-ray yesterday. Breast sonogram pending, anticipate hematoma due to fall yesterday. I spoke with Dr. Haines after conversations with patient's guardian earlier today indicated an interest in obtaining DO NOT RESUSCITATE order through the court. Dr. Haines felt this was appropriate due to patient's advanced disease process and noncompliance with medications. Guardian asked that comfort be primary focus of care. Letter's will be written in support of DO NOT RESUSCITATE order on behalf of the guardian by myself and Dr. Haines. Continue support with BiPAP; speech therapy evaluation pending. Possible UTI-ceftriaxone added to clindamycin for aspiration pneumonia. Hospital Course Summary Disclaimer: The visit summary below is not to be considered part of the above Progress Note. Hospital Course: Impression: Acute aspiration event with syncope/collapse Acute respiratory failure with hypoxia Aspiration pneumonia/pneumonitis Possible fluid overload. Parkinson's with memory changes Known history of dysphagia DM2 Depression/JASMINA/BPAD 04/05/18 Monitor on oxygen overnight. Antibiotics for coverage of likely aspiration event- Clindamycin. Allergy to both PCN and Cephalosporins. O2, PRN suction. Ask ST to see patient for further evaluation. Monitor BG. Monitor labs closely. NPO until ST sees pt. May take meds with sips. Follow CXR. Add LMWH for DVT PX. Add PPI due to aspiration event. Lasix x 1 upon admission. Full code per MD paperwork. 04/06/18 Hypoxia, somnolence - ABG ordered, showing respiratory acidosis (pH 7.29, PCO2 62, PO2 64 on 10L) - BiPAP trial ordered. CXR reviewed and compared to previous: left sided infiltrate more prominent. Hypotension overnight requiring 500 mL fluid bolus - BP low-normal currently and IVF are not infusing. SIRS criteria noted: Fever (100.7), tachypnea, leukocytosis - sepsis w/u ordered. Lactate and procalcitonin were normal. BC drawn. Pyuria present-ceftriaxone initiated pending results of urine culture. Cont clinda for aspiration. Continue suctioning, breathing treatments, speech therapy. Soft tissue ultrasound ordered to delineate firmness to left chest wall. Addendum entered and electronically signed by Inez Coffey APRN 04/06/18 16: 37: Chapis's SBP improved to 99 mmHg after the 500 mL fluid bolus and she was tolerating BiPAP well. I spoke to Branden Vazquezaine's guardian, and updated him on her worsening condition. He would like to continue any measures that may make her comfortable, and concurs with current treatment including IVF for BP support, BiPAP, and antibiotics. He does not want us to utilize more aggressive measures including vasopressors or intubation. He requests that we petition the court for a court-appointed DNR. This was discussed with Dr. Barraza.
[2018-04-06] MEDS: LEVOTHYROXINE 150 MCG TABLET PO SCH (10:57)
[2018-04-06] MEDS: CITALOPRAM 20 MG TABLET PO SCH (10:57)
[2018-04-06] MEDS: ENOXAPARIN 40 MG/0.4 ML INJECTION SQ SCH (10:57)
[2018-04-06] MEDS: SALINE FLUSH 10ml SYRINGE IVF PRN ×3 (13:24→19:18)
[2018-04-06] MEDS: CEFTRIAXONE 1 G in NS 100 ML IV SCH (17:01)
[2018-04-06] MEDS: NS FLUSH BAG 500ml IV PRN (17:02)
[2018-04-06] MEDS ORDERED: ACETAMINOPHEN 650 MG SUPPOSITORY PR PRN (17:37)
[2018-04-06] MEDS: ALBUTEROL/IPRATROPIUM 2.5mg-0.5mg/3ml NEB AEROSOL SCH ×2 (18:51→22:35)
[2018-04-06] MEDS: BUDESONIDE INH.SOLN 0.5mg/2ml NEB AEROSOL SCH (18:51)
[2018-04-06] MEDS: QUETIAPINE 100 MG TABLET PO SCH (22:38)
[2018-04-07] MEDS: ALBUTEROL/IPRATROPIUM 2.5mg-0.5mg/3ml NEB AEROSOL SCH ×6 (02:15→22:59)
[2018-04-07] MEDS: LEVOTHYROXINE 150 MCG TABLET PO SCH ×2 (06:47→08:59)
[2018-04-07] MEDS: OMEPRAZOLE 20 MG CAPSULE PO SCH (06:48)
[2018-04-07] MEDS: NS 1,000 ML IV SCH ×2 (06:54→20:02)
[2018-04-07] MEDS: CLINDAMYCIN PB 600 MG/50 ML BAG IV SCH ×3 (06:57→21:26)
[2018-04-07] MEDS: BUDESONIDE INH.SOLN 0.5mg/2ml NEB AEROSOL SCH ×2 (07:36→19:13)
--- NOTE | 2018-04-07 08:11 | Breast Ultrasound ---
#[id number] - US BREAST LT LIMITED ULTRASOUND OF LEFT BREAST: 04/06/2018 CLINICAL: [id number] Lump/Mass, unspecified; Left Breast. Comparison is made to exams dated: 02/03/2017 mammogram, 02/02/2016 mammogram, 11/16/2014 mammogram, 05/03/2014 mammogram, 11/04/2013 mammogram, and 04/29/2013 mammogram - [facility] [place]. Color flow and real-time ultrasound of the left breast were performed. Stanford scale images of the real-time examination were reviewed. There is no mass seen in the left breast at the position 12 o'clock at the site of palpable concern. Normal appearing fibroglandular tissue and probable scarring is identified. No worrisome shadowing or worrisome vascular flow is identified in the area of concern. IMPRESSION: INCOMPLETE:NEED ADDITIONAL IMAGING EVALUATION - FOLLOW-UP RECOMMENDED There is no mass seen in the left breast at the position 12 o'clock at the site of palpable concern. The palpable mass in the left breast needs additional evaluation. Mammographic evaluation is recommended prior to final assessment. The patient has been or will be contacted. Bianca Fam M.D. pd/:04/06/2018 18:13:37 copy to: Karena Haines MD Head Start Coordinator: Mari Pate RDMS(AB,INSTRUMENT ASSEMBLER,B, [facility] [place] letter sent: Followup Category 0 Ultrasound BI-RADS: 0 Indeterminate MTDD
[2018-04-07] MEDS: CITALOPRAM 20 MG TABLET PO SCH (08:58)
[2018-04-07] MEDS: ENOXAPARIN 40 MG/0.4 ML INJECTION SQ SCH (08:59)
[2018-04-07] MEDS: ACETAMINOPHEN 325 MG TABLET PO PRN ×2 (09:03→19:36)
--- NOTE | 2018-04-07 10:43 | Progress Note ---
- Date 04/07/18 Subjective: Patient seen in f-u of acute respiratory failure with hypoxia and hypercapnia caused by aspiration. She is sitting up in bed following her session with speech therapy. She is alert and able to converse with me. She is somewhat hard to understand at times. She reports she is feeling better. In discussing the "bruising" on her breast, she is able to tell me she has a h/o breast cancer and she thinks it is back b/c she can feel "lumps" in her axilla. She can tell me she resides at [facility] and that she was brought in to the hospital due to shortness of breath. Objective Vital signs: Temperature 98.3 F 04/07/18 08:00 Pulse Rate 85 04/07/18 08:00 Respiratory Rate 20 04/07/18 08:00 Blood Pressure 113/62 04/07/18 08:00 Pulse Oximetry 92 04/07/18 08:00 Rhythm: Sinus Bradycardia Height/Weight/BMI: Height 1.55 m Weight 97.9 kg Body Mass Index 39.6 - Constitutional Present: no acute distress, well nourished, well developed - Routine HEENT Exam Head: Present: normocephalic, atraumatic - Routine Respiratory Exam Present: wheezes (audible upper resp wheezes noted w/o stethoscope), distant breath sounds - Routine Cardiovascular Exam Present: RRR, no murmur - Routine Abdominal Exam Present: soft, non distended, non tender - Routine Extremities Exam Present: edema (1+), normal capillary refill - Routine Skin Exam Present: dry, warm Comments: L breast has a rectangular shaped area of discoloration which is likely a result of radiation. She has a scar from previous surgery. This area is firm - question if this is scarring from surgery/radiation vs recurrence of cancer. The "lump" she shows me is a small comedone in the axilla. - Routine Neurological Exam Present: alert, oriented X3 - Routine Lymphatic Exam Lymphatic: Absent: adenopathy - Routine Psychiatric Exam Present: normal affect, cooperative Results - Labs CBC & Chem 7: 04/07/18 04:03 04/07/18 04:03 Microbiology Results: Microbiology 04/06/18 08:03 Peripheral/Iv Start Blood Culture - Preliminary No Growth After 1 Day 04/06/18 08:20 Peripheral/Iv Start Blood Culture - Preliminary No Growth After 1 Day 04/06/18 10:29 Urine, Cath Straight Urine Culture - Preliminary Culture Initiated - Results Pending - ABG Interpretation ABG results: 04/06/18 09:12 ABG pH 7.292 L ABG pCO2 61 H* ABG pO2 63.6 L ABG HCO3 29.6 H ABG Total CO2 31.5 H ABG O2 Saturation 88.5 L ABG Base Excess 1.6 Assessment and Plan (1) Acute aspiration pneumonia Current visit: Yes Status: Acute (2) Acute respiratory failure with hypoxia Current visit: Yes Status: Acute Assessment and Plan: Impression: Acute aspiration event with syncope/collapse Acute respiratory failure with hypoxia, hypercapnia, respiratory acidosis Aspiration pneumonia/pneumonitis Possible fluid overload. H/o breast cancer with radiation/surgical changes to L breast Parkinson's with memory changes Known history of dysphagia DM2 Depression/JASMINA/schizoaffective d/o Pyuria Plan: Currently on 6L per NC with 95% sats. Will try weaning. Speech has advanced her diet to pureed with thin liquids. Day #2 of Rocephin and Day #3 of clindamycin. UA was performed yesterday as part of sepsis w-u. + nitrates and leuks. Urine culture is pending. Leukocytosis is improving. Consider resuming her home Lasix tomorrow if BP remains stable. Labs stable. Consider DC IVF's later today if she is taking po well. Recommend OP f-u of L breast scarring vs mass. DVT Prophylaxis: Lovenox GI Prophylaxis: Omeprazole Resuscitation Status: Full Code - Physician Narrative Physician: Mirna Barraza MD Narrative: Date: 04/07/18 Time: 1410 I have independently evaluated and examined this patient. I reviewed the chart, the patient's history, and the MATERNITY FLOOR SUPERVISOR/PA's documented findings as above. We discussed and formulated the assessment and plan as above with additions as below: Mrs. Sesay denied dyspnea today and reported minimal cough. She's had no nausea. She denies pain with inspiration other than minor right sided chest wall pain. Review of old records indicates a left breast mass with overlying skin changes was present in August 2016 and patient was due for follow-up with Dr. Calderón at that time. Subsequent bone scans indicate improvement in metastatic activity. Patient is more talkative and speech is understandable today with her dentures in. Respirations are nonlabored with decreased breath sounds, there are crackles in the posterior and lateral left lung but no wheezing was appreciated There is a large firm/fixed mass in the left breast upper outer quadrant is centered around prior surgical scar. Mass is approximately 8 cm in size. Respiratory status improving, on 4 L oxygen currently. Continue current management, urine culture pending-Escherichia coli identified preliminarily. Chest x-ray in a.m. Hospital Course Summary Disclaimer: The visit summary below is not to be considered part of the above Progress Note. Hospital Course: Impression: Acute aspiration event with syncope/collapse Acute respiratory failure with hypoxia Aspiration pneumonia/pneumonitis Possible fluid overload. Parkinson's with memory changes Known history of dysphagia DM2 Depression/JASMINA/BPAD 04/05/18 Monitor on oxygen overnight. Antibiotics for coverage of likely aspiration event- Clindamycin. Allergy to both PCN and Cephalosporins. O2, PRN suction. Ask ST to see patient for further evaluation. Monitor BG. Monitor labs closely. NPO until ST sees pt. May take meds with sips. Follow CXR. Add LMWH for DVT PX. Add PPI due to aspiration event. Lasix x 1 upon admission. Full code per PA paperwork. 04/06/18 Hypoxia, somnolence - ABG ordered, showing respiratory acidosis (pH 7.29, PCO2 62, PO2 64 on 10L) - BiPAP trial ordered. CXR reviewed and compared to previous: left sided infiltrate more prominent. Hypotension overnight requiring 500 mL fluid bolus - BP low-normal currently and IVF are not infusing. SIRS criteria noted: Fever (100.7), tachypnea, leukocytosis - sepsis w/u ordered. Lactate and procalcitonin were normal. BC drawn. Pyuria present-ceftriaxone initiated pending results of urine culture. Cont clinda for aspiration. Continue suctioning, breathing treatments, speech therapy. Soft tissue ultrasound ordered to delineate firmness to left chest wall. 04/07/18 Currently on 6L per NC with 95% sats. Will try weaning. Speech has advanced her diet to pureed with thin liquids. Day #2 of Rocephin and Day #3 of clindamycin. UA was performed yesterday as part of sepsis w-u. + nitrates and leuks. Urine culture is pending. Leukocytosis is improving. Consider resuming her home Lasix tomorrow if BP remains stable. Labs stable. Consider DC IVF's later today if she is taking po well. Recommend OP f-u of L breast scarring vs mass.
[2018-04-07] MEDS: FUROSEMIDE 40 MG TABLET PO SCH (12:02)
[2018-04-07] MEDS: CEFTRIAXONE 1 G in NS 100 ML IV SCH (16:20)
[2018-04-07] MEDS: QUETIAPINE 100 MG TABLET PO SCH (20:34)
[2018-04-08] MEDS: ALBUTEROL/IPRATROPIUM 2.5mg-0.5mg/3ml NEB AEROSOL SCH ×6 (02:58→23:21)
[2018-04-08] MEDS: OMEPRAZOLE 20 MG CAPSULE PO SCH (05:51)
[2018-04-08] MEDS: LEVOTHYROXINE 150 MCG TABLET PO SCH (05:51)
[2018-04-08] MEDS: ACETAMINOPHEN 325 MG TABLET PO PRN ×2 (05:54→18:46)
[2018-04-08] MEDS: CLINDAMYCIN PB 600 MG/50 ML BAG IV SCH ×3 (06:19→22:16)
[2018-04-08] MEDS: BUDESONIDE INH.SOLN 0.5mg/2ml NEB AEROSOL SCH ×2 (06:49→18:57)
[2018-04-08] MEDS: NS 1,000 ML IV SCH (07:28)
--- NOTE | 2018-04-08 08:04 | XRay Report ---
Indication: aspiration pneumonia PROCEDURE: XR chest 1V: Encounter: Initial Comparison: April 06, 2018 Findings: Aeration of the left lung has improved with residual patchy airspace consolidation remaining scattered throughout. Right lung is stable. No pneumothorax or significant pleural fluid. Heart size and mediastinal contours are unchanged. Impression: Improving aeration of the left lung. .
[2018-04-08] MEDS: CITALOPRAM 20 MG TABLET PO SCH (09:03)
[2018-04-08] MEDS: ENOXAPARIN 40 MG/0.4 ML INJECTION SQ SCH (09:04)
--- NOTE | 2018-04-08 09:58 | Progress Note ---
- Date 04/08/18 Subjective: Chapis was resting in bed, eyes closed, BiPAP in place. She easily awakened. When greeted by name. She denied any complaints or pain. She denied feeling short of breath. Her words were difficult to understand this morning. Per RN, she was c/o headache earlier this am and received tylenol. Objective Vital signs: Temperature 96.7 F L 04/08/18 07:19 Pulse Rate 89 04/08/18 07:52 Respiratory Rate 22 04/08/18 07:19 Blood Pressure 128/62 04/08/18 07:19 Pulse Oximetry 92 04/08/18 07:19 Rhythm: Sinus Bradycardia Height/Weight/BMI: Height 1.55 m Weight 101 kg Body Mass Index 39.6 - Constitutional Present: no acute distress, well nourished, well developed - Routine HEENT Exam Head: Present: normocephalic Eye: Present: PERRL. Absent: conjunctival icterus, scleral injection - Routine Respiratory Exam Present: decreased breath sounds Comments: BiPAP in place - Routine Cardiovascular Exam Present: RRR, S1, S2 - Routine Abdominal Exam Present: normoactive bowel sounds, non tender, distended - Routine Extremities Exam Present: edema (1+ bilaterally) - Routine Skin Exam Present: intact, dry, warm Comments: Discoloration and firmness as previously noted to left upper breast - Routine Neurological Exam Present: alert. Absent: facial asymmetry - Routine Psychiatric Exam Present: cooperative Results - Labs CBC & Chem 7: 04/08/18 04:18 04/08/18 04:18 Microbiology Results: Microbiology 04/06/18 08:03 Peripheral/Iv Start Blood Culture - Preliminary No Growth After 2 Days 04/06/18 08:20 Peripheral/Iv Start Blood Culture - Preliminary No Growth After 2 Days 04/06/18 10:29 Urine, Cath Straight Urine Culture - Final Escherichia coli Assessment and Plan (1) Acute aspiration pneumonia Current visit: Yes Status: Acute (2) Acute respiratory failure with hypoxia Current visit: Yes Status: Acute Assessment and Plan: Impression: Acute aspiration event with syncope/collapse Acute respiratory failure with hypoxia, hypercapnia, respiratory acidosis Aspiration pneumonia/pneumonitis Possible fluid overload. Hypernatremia H/o breast cancer with radiation/surgical changes to L breast Parkinson's with memory changes Known history of dysphagia DM2 Depression/JASMINA/schizoaffective d/o Pyuria Plan: Continue BiPAP while at rest, 5 L of oxygen, otherwise. Respiratory status is improving. Dysphagia, also improving with speech therapy. Continue clindamycin for aspiration, day #4. Cultures positive for Escherichia coli, pansensitive. Continue ceftriaxone, day #3. Weight is up about 3 kg compared to yesterday morning. Sodium level increased to 145. Renal function is stable. Change IVF to 1/2 NS & reduce rate to 50 ml/hr ; resume Lasix. Dr. Haines and Dr. Barraza working on court-appointed DNR order. DVT Prophylaxis: Lovenox Resuscitation Status: Full Code - Physician Narrative Physician: Mirna Barraza MD Narrative: Date: 04/08/18 Time: 5745 I have independently evaluated and examined this patient. I reviewed the chart, the patient's history, and the TAX EXAMINER/PA's documented findings as above. We discussed and formulated the assessment and plan as above with additions as below: Mrs. Sesay was sleeping when seen, she opened her eyes briefly and patted her right chest when asked if she was having any pain. She noted no when asked if she was short of breath but really did not interact beyond that. She denied sputum production. Respirations nonlabored, decreased airflow and faint crackles audible at the left base. Abdomen is soft, nontender, and bowel sounds are diminished Chest x-ray reviewed by myself demonstrating bilateral infiltrates left greater than right but improved from prior days Continue current care, speech therapy notes reviewed-no change in recommendations at this time. Continue IV antibiotics as described above-will convert to oral clindamycin when otherwise ready for discharge. Ele continue ceftriaxone after 3-5 day course. Letter written and faxed to the guardian's corporate attorney in support of possible DO NOT RESUSCITATE order. Hospital Course Summary Disclaimer: The visit summary below is not to be considered part of the above Progress Note. Hospital Course: Impression: Acute aspiration event with syncope/collapse Acute respiratory failure with hypoxia Aspiration pneumonia/pneumonitis Possible fluid overload. Parkinson's with memory changes Known history of dysphagia DM2 Depression/JASMINA/BPAD 04/05/18 Monitor on oxygen overnight. Antibiotics for coverage of likely aspiration event- Clindamycin. Allergy to both PCN and Cephalosporins. O2, PRN suction. Ask ST to see patient for further evaluation. Monitor BG. Monitor labs closely. NPO until ST sees pt. May take meds with sips. Follow CXR. Add LMWH for DVT PX. Add PPI due to aspiration event. Lasix x 1 upon admission. Full code per MD paperwork. 04/06/18 Hypoxia, somnolence - ABG ordered, showing respiratory acidosis (pH 7.29, PCO2 62, PO2 64 on 10L) - BiPAP trial ordered. CXR reviewed and compared to previous: left sided infiltrate more prominent. Hypotension overnight requiring 500 mL fluid bolus - BP low-normal currently and IVF are not infusing. SIRS criteria noted: Fever (100.7), tachypnea, leukocytosis - sepsis w/u ordered. Lactate and procalcitonin were normal. BC drawn. Pyuria present-ceftriaxone initiated pending results of urine culture. Cont clinda for aspiration. Continue suctioning, breathing treatments, speech therapy. Soft tissue ultrasound ordered to delineate firmness to left chest wall. 04/07/18 Currently on 6L per NC with 95% sats. Will try weaning. Speech has advanced her diet to pureed with thin liquids. Day #2 of Rocephin and Day #3 of clindamycin. UA was performed yesterday as part of sepsis w-u. + nitrates and leuks. Urine culture is pending. Leukocytosis is improving. Consider resuming her home Lasix tomorrow if BP remains stable. Labs stable. Consider DC IVF's later today if she is taking po well. Recommend OP f-u of L breast scarring vs mass. 04/08/18 Continue BiPAP while at rest, 5 L of oxygen, otherwise. Respiratory status is improving. Dysphagia, also improving with speech therapy. Continue clindamycin for aspiration, day #4. Cultures positive for Escherichia coli, pansensitive. Continue ceftriaxone, day #3. Weight is up about 3 kg compared to yesterday morning. Sodium level increased to 145. Renal function is stable. Change IVF to 1/2 NS & reduce rate to 50 ml/hr ; resume Lasix. Dr. Haines and Dr. Barraza working on court-appointed DNR order.
[2018-04-08] MEDS: 1/2 NS 1,000 ML IV SCH (11:06)
[2018-04-08] MEDS: CEFTRIAXONE 1 G in NS 100 ML IV SCH (15:32)
[2018-04-08] MEDS: QUETIAPINE 100 MG TABLET PO SCH (20:32)
[2018-04-09] MEDS: ALBUTEROL/IPRATROPIUM 2.5mg-0.5mg/3ml NEB AEROSOL SCH ×4 (03:35→21:55)
[2018-04-09] MEDS: LEVOTHYROXINE 150 MCG TABLET PO SCH (06:51)
[2018-04-09] MEDS: CLINDAMYCIN PB 600 MG/50 ML BAG IV SCH ×4 (06:51→22:25)
[2018-04-09] MEDS: OMEPRAZOLE 20 MG CAPSULE PO SCH (06:58)
[2018-04-09] MEDS: BUDESONIDE INH.SOLN 0.5mg/2ml NEB AEROSOL SCH ×3 (09:04→21:55)
[2018-04-09] MEDS: CITALOPRAM 20 MG TABLET PO SCH (10:34)
[2018-04-09] MEDS: 1/2 NS 1,000 ML IV SCH (10:34)
[2018-04-09] MEDS: ENOXAPARIN 40 MG/0.4 ML INJECTION SQ SCH (10:34)
[2018-04-09] MEDS: FUROSEMIDE 40 MG TABLET PO SCH (10:34)
--- NOTE | 2018-04-09 11:22 | Progress Note ---
- Date 04/09/18 Subjective: Chapis is seen today in follow up. She is alert, but confused. Working with ST today. She is on O2 per NC, appears SOA, and is audibly wheezing. Still significant swallow concerns per ST. Chapis does seem to have some difficulty following commands from ST. She is able to tell me that her legs are sore, and that she would like some Tylenol. Objective Vital signs: Temperature 97.4 F 04/09/18 00:00 Pulse Rate 79 04/09/18 03:55 Respiratory Rate 25 H 04/09/18 09:07 Blood Pressure 132/74 04/09/18 03:55 Pulse Oximetry 93 04/09/18 09:07 Rhythm: Normal Sinus Rhythm Height/Weight/BMI: Height 1.55 m Weight 101 kg Body Mass Index 39.6 - Constitutional Present: moderate distress, morbidly obese, disheveled, cooperative, somnolent - Routine HEENT Exam Head: Present: normocephalic, atraumatic Eye: Present: EOMI, PERRL - Routine Respiratory Exam Present: dyspnea, decreased breath sounds, wheezes (Wheezy throughout and audible wheezing. ), distant breath sounds - Routine Cardiovascular Exam Present: RRR, S1, S2, no murmur - Routine Abdominal Exam Present: soft, non distended, non tender - Routine Extremities Exam Present: edema (She does have upper extremity edema. Mild LE edema. ) - Routine Musculoskeletal Exam Musculoskeletal: Present: moving extremities well - Routine Skin Exam Present: intact, dry, warm - Routine Neurological Exam Present: alert, altered mental status (A bit obtunded, confused. ), moving all extremities. Absent: oriented X3 - Routine Psychiatric Exam Present: cooperative. Absent: good insight, good judgment Results - Labs CBC & Chem 7: 04/08/18 04:18 04/09/18 05:28 Microbiology Results: Microbiology 04/06/18 08:20 Peripheral/Iv Start Blood Culture - Preliminary No Growth After 3 Days 04/06/18 08:03 Peripheral/Iv Start Blood Culture - Preliminary No Growth After 3 Days 04/06/18 10:29 Urine, Cath Straight Urine Culture - Final Escherichia coli - Imaging and Cardiology Chest x-ray Status: image reviewed by me Additional comments: Comparison: April 06, 2018 Findings: Aeration of the left lung has improved with residual patchy airspace consolidation remaining scattered throughout. Right lung is stable. No pneumothorax or significant pleural fluid. Heart size and mediastinal contours are unchanged. Impression: Improving aeration of the left lung. . Assessment and Plan (1) Acute aspiration pneumonia Current visit: Yes Status: Acute (2) Acute respiratory failure with hypoxia Current visit: Yes Status: Acute Assessment and Plan: Impression: Acute aspiration event with syncope/collapse Acute respiratory failure with hypoxia, hypercapnia, respiratory acidosis Aspiration pneumonia/pneumonitis Possible fluid overload. Hypernatremia H/o breast cancer with radiation/surgical changes to L breast Parkinson's with memory changes Known history of dysphagia DM2 Depression/JASMINA/schizoaffective d/o E.Coli UTI, Pansensitive Plan: 04/09/18 Continue BiPAP, O2. Resp status is concerning, but I suspect she is fluid overloaded. Weight is up quite a lot. I am going to start her on scheduled IV diuretics, oral potassium and monitor. Dysphagia/Aspiration- continue clindamycin for aspiration, day #5. EColi UTI and Asp Pneumonia- Ceftriaxone, D #4 Continue nebs and oxygen. Order daily weights. Repeat labs and CXR in AM for stability. Long history of aspiration events. Recurrence will certainly be a concern. Guarded prognosis. Dr. Haines and Dr. Barraza working on court-appointed DNR order. DVT Prophylaxis: SCD's GI Prophylaxis: Omeprazole Resuscitation Status: Full Code - Physician Narrative Physician: Mirna Barraza MD Narrative: Date: 04/09/18 Time: 1909 I have independently evaluated and examined this patient. I reviewed the chart, the patient's history, and the CALENDER TENDER/PA's documented findings as above. We discussed and formulated the assessment and plan as above with additions as below: Mrs. Sesay was seen midafternoon at which time she was just completing a breathing treatment. The patient was drowsy and speech was very mumbled; she denied pain but no other responses could be made out. RTC reports increased oxygen demand--6L at present. Anterior breath sounds are slightly coarse bilaterally with no wheezing was present at the time of my exam Chest x-rays been reviewed by myself demonstrating increased opacities bilaterally suggestive of pulmonary edema Agree with diuresis, check BNP in a.m. Continue current antibiotics, cannot exclude recurrent aspiration. Hospital Course Summary Disclaimer: The visit summary below is not to be considered part of the above Progress Note. Hospital Course: Impression: Acute aspiration event with syncope/collapse Acute respiratory failure with hypoxia Aspiration pneumonia/pneumonitis Possible fluid overload. Parkinson's with memory changes Known history of dysphagia DM2 Depression/JASMINA/BPAD 04/05/18 Monitor on oxygen overnight. Antibiotics for coverage of likely aspiration event- Clindamycin. Allergy to both PCN and Cephalosporins. O2, PRN suction. Ask ST to see patient for further evaluation. Monitor BG. Monitor labs closely. NPO until ST sees pt. May take meds with sips. Follow CXR. Add LMWH for DVT PX. Add PPI due to aspiration event. Lasix x 1 upon admission. Full code per PR paperwork. 04/06/18 Hypoxia, somnolence - ABG ordered, showing respiratory acidosis (pH 7.29, PCO2 62, PO2 64 on 10L) - BiPAP trial ordered. CXR reviewed and compared to previous: left sided infiltrate more prominent. Hypotension overnight requiring 500 mL fluid bolus - BP low-normal currently and IVF are not infusing. SIRS criteria noted: Fever (100.7), tachypnea, leukocytosis - sepsis w/u ordered. Lactate and procalcitonin were normal. BC drawn. Pyuria present-ceftriaxone initiated pending results of urine culture. Cont clinda for aspiration. Continue suctioning, breathing treatments, speech therapy. Soft tissue ultrasound ordered to delineate firmness to left chest wall. 04/07/18 Currently on 6L per [place] with 95% sats. Will try weaning. Speech has advanced her diet to pureed with thin liquids. Day #2 of Rocephin and Day #3 of clindamycin. UA was performed yesterday as part of sepsis w-u. + nitrates and leuks. Urine culture is pending. Leukocytosis is improving. Consider resuming her home Lasix tomorrow if BP remains stable. Labs stable. Consider DC IVF's later today if she is taking po well. Recommend OP f-u of L breast scarring vs mass. 04/08/18 Continue BiPAP while at rest, 5 L of oxygen, otherwise. Respiratory status is improving. Dysphagia, also improving with speech therapy. Continue clindamycin for aspiration, day #4. Cultures positive for Escherichia coli, pansensitive. Continue ceftriaxone, day #3. Weight is up about 3 kg compared to yesterday morning. Sodium level increased to 145. Renal function is stable. Change IVF to 1/2 NS & reduce rate to 50 ml/hr ; resume Lasix. Dr. Haines and Dr. Barraza working on court-appointed DNR order. 04/09/18 Continue BiPAP, O2. Resp status is concerning, but I suspect she is fluid overloaded. Weight is up quite a lot. I am going to start her on scheduled IV diuretics, oral potassium and monitor. Dysphagia/Aspiration- continue clindamycin for aspiration, day #5. EColi UTI and Asp Pneumonia- Ceftriaxone, D #4 Continue nebs and oxygen. Order daily weights. Repeat labs and CXR in AM for stability. Long history of aspiration events. Recurrence will certainly be a concern. Guarded prognosis. Dr. Haines and Dr. Barraza working on court-appointed DNR order.
--- NOTE | 2018-04-09 13:21 | XRay Report ---
Indication: PNA PROCEDURE: XR chest 1V: Encounter: Initial Comparison: April 08, 2018 Findings: Worsening airspace consolidation in the right upper lobe. Persistent patchy airspace consolidation in the left mid to lower lung field. Increasing small effusions. No pneumothorax. Cardiac silhouette and mediastinal contours are stable. Impression: Increasing pleural effusions and new right upper lobe infiltrates. .
[2018-04-09] MEDS: FUROSEMIDE 40 MG/4 ML INJECTION IVP SCH ×2 (17:25→17:26)
[2018-04-09] MEDS: CEFTRIAXONE 1 G in NS 100 ML IV SCH (17:30)
[2018-04-09] MEDS: QUETIAPINE 100 MG TABLET PO SCH (22:25)
[2018-04-10] MEDS: FUROSEMIDE 40 MG/4 ML INJECTION IVP SCH ×3 (01:13→20:19)
[2018-04-10] MEDS: ACETAMINOPHEN 325 MG TABLET PO PRN ×4 (02:26→22:04)
[2018-04-10] MEDS: ALBUTEROL/IPRATROPIUM 2.5mg-0.5mg/3ml NEB AEROSOL SCH ×8 (03:05→23:43)
[2018-04-10] MEDS: CLINDAMYCIN PB 600 MG/50 ML BAG IV SCH ×3 (05:55→22:05)
[2018-04-10] MEDS: LEVOTHYROXINE 150 MCG TABLET PO SCH (05:58)
[2018-04-10] MEDS: OMEPRAZOLE 20 MG CAPSULE PO SCH (05:58)
[2018-04-10] MEDS: BUDESONIDE INH.SOLN 0.5mg/2ml NEB AEROSOL SCH ×2 (07:17→19:09)
[2018-04-10] MEDS: CITALOPRAM 20 MG TABLET PO SCH (08:05)
[2018-04-10] MEDS: SALINE FLUSH 10ml SYRINGE IVF PRN ×3 (08:06→14:42)
[2018-04-10] MEDS: ENOXAPARIN 40 MG/0.4 ML INJECTION SQ SCH (08:06)
[2018-04-10] MEDS: ONDANSETRON 4 MG/2 ML INJECTION IVP PRN (12:48)
[2018-04-10] MEDS: NS FLUSH BAG 500ml IV PRN (12:58)
--- NOTE | 2018-04-10 14:35 | Progress Note ---
- Date 04/10/18 Subjective: Chapis is seen today in follow up. She is alert, but confused. She is a bit congested and irritable with questions. Does not report any acute concerns when we speak. Denies any pain. She has a large bruised area on left chest wall- when I ask about it, all she will say is "breast cancer"- unclear if this is chronic discoloration from prior treatments. It does not seem to be acutely tender. Objective Vital signs: Temperature 96.8 F 04/10/18 11:10 Pulse Rate 89 04/10/18 11:10 Respiratory Rate 24 04/10/18 11:25 Blood Pressure 115/57 04/10/18 11:10 Pulse Oximetry 92 04/10/18 11:25 Rhythm: Normal Sinus Rhythm Height/Weight/BMI: Height 1.55 m Weight 97.1 kg Body Mass Index 39.6 - Constitutional Present: mild distress (Mildly SOA at rest. ), obese, disheveled - Routine HEENT Exam Head: Present: normocephalic, atraumatic Eye: Present: EOMI, PERRL ENT: Present: mucous membranes moist - Routine Respiratory Exam Present: decreased breath sounds, rhonchi (Coarse bilaterally. ), distant breath sounds, diminished air movement - Routine Cardiovascular Exam Present: RRR, S1, S2 - Routine Abdominal Exam Present: soft, normoactive bowel sounds, non distended, non tender - Routine Extremities Exam Present: edema (Trace LE edema), non tender - Routine Musculoskeletal Exam Musculoskeletal: Present: moving extremities well - Routine Skin Exam Present: intact, dry, warm - Routine Neurological Exam Present: alert, moving all extremities - Routine Psychiatric Exam Absent: normal affect, normal thought process, good insight, good judgment Comments: Alert, irritable, poor historian Results - Labs CBC & Chem 7: 04/10/18 04:27 04/10/18 04:27 Microbiology Results: Microbiology 04/06/18 08:20 Peripheral/Iv Start Blood Culture - Preliminary No Growth After 4 Days 04/06/18 08:03 Peripheral/Iv Start Blood Culture - Preliminary No Growth After 4 Days 04/06/18 10:29 Urine, Cath Straight Urine Culture - Final Escherichia coli - Imaging and Cardiology Chest x-ray Additional comments: Impression: Increasing pleural effusions and new right upper lobe infiltrates. . Assessment and Plan (1) Acute aspiration pneumonia Current visit: Yes Status: Acute (2) Acute respiratory failure with hypoxia Current visit: Yes Status: Acute Assessment and Plan: Impression: Acute aspiration event with syncope/collapse Acute respiratory failure with hypoxia, hypercapnia, respiratory acidosis Aspiration pneumonia/pneumonitis Possible fluid overload. Hypernatremia H/o breast cancer with radiation/surgical changes to L breast Parkinson's with memory changes Known history of dysphagia DM2 Depression/JASMINA/schizoaffective d/o E.Coli UTI, Pansensitive Plan: 04/10/18 Patient has demonstrated excellent diuresis. Wt is down 5 kg overnight. Extremity edema is better. Labs are tolerating well. Continue current, and potentially will need to decrease Lasix dosing tomorrow. Concern for possible worsening aspiration- MBS today- pureed is potentially safest. report for that study is pending. Continue Ceftriaxone and Clindamycin for now to cover both Aspiration and UTI. BiPAP, O2 support. Duoneb, pulmicort. Continue supportive medications. Court petition for DNR is pending. Follow labs, CXR as indicated. DVT Prophylaxis: Lovenox Resuscitation Status: Full Code - Physician Narrative Physician: Mirna Barraza MD Narrative: Date: 04/10/18 Time: 1635 Mrs. Sesay was drowsy when seen and was noncommittal about whether she was having any dyspnea or nausea. She was coughing frequently and complained of right-sided chest pain which indicated his been present for a long time. She denied fevers or chills. Speech therapy expressed concern about swallow safety and requested modified barium swallow which subsequently was obtained and demonstrated no aspiration. NAD, confused and less talkative than she was several days ago Respirations nonlabored with decreased airflow and coarse breath sounds bilaterally Left breast mass unchanged from prior days +2 bilateral lower extremity edema Chest x-ray yesterday with increased pleural effusions and new infiltrate in the right upper lobe suggesting recurrent aspiration. Modified barium swallow spot films reviewed-no evidence of aspiration with thin or putting consistency barium. Results of study discussed with speech therapy. Continues to require 5-6 L oxygen to maintain saturation above 90% but otherwise clinically stable. Continue clindamycin for aspiration pneumonia; has completed 5 days of ceftriaxone for UTI-discontinue. Discussed with speech therapy and case management. Hospital Course Summary Disclaimer: The visit summary below is not to be considered part of the above Progress Note. Hospital Course: Impression: Acute aspiration event with syncope/collapse Acute respiratory failure with hypoxia Aspiration pneumonia/pneumonitis Possible fluid overload. Parkinson's with memory changes Known history of dysphagia DM2 Depression/JASMINA/BPAD 04/05/18 Monitor on oxygen overnight. Antibiotics for coverage of likely aspiration event- Clindamycin. Allergy to both PCN and Cephalosporins. O2, PRN suction. Ask ST to see patient for further evaluation. Monitor BG. Monitor labs closely. NPO until ST sees pt. May take meds with sips. Follow CXR. Add LMWH for DVT PX. Add PPI due to aspiration event. Lasix x 1 upon admission. Full code per MD paperwork. 04/06/18 Hypoxia, somnolence - ABG ordered, showing respiratory acidosis (pH 7.29, PCO2 62, PO2 64 on 10L) - BiPAP trial ordered. CXR reviewed and compared to previous: left sided infiltrate more prominent. Hypotension overnight requiring 500 mL fluid bolus - BP low-normal currently and IVF are not infusing. SIRS criteria noted: Fever (100.7), tachypnea, leukocytosis - sepsis w/u ordered. Lactate and procalcitonin were normal. BC drawn. Pyuria present-ceftriaxone initiated pending results of urine culture. Cont clinda for aspiration. Continue suctioning, breathing treatments, speech therapy. Soft tissue ultrasound ordered to delineate firmness to left chest wall. 04/07/18 Currently on 6L per [place] with 95% sats. Will try weaning. Speech has advanced her diet to pureed with thin liquids. Day #2 of Rocephin and Day #3 of clindamycin. UA was performed yesterday as part of sepsis w-u. + nitrates and leuks. Urine culture is pending. Leukocytosis is improving. Consider resuming her home Lasix tomorrow if BP remains stable. Labs stable. Consider DC IVF's later today if she is taking po well. Recommend OP f-u of L breast scarring vs mass. 04/08/18 Continue BiPAP while at rest, 5 L of oxygen, otherwise. Respiratory status is improving. Dysphagia, also improving with speech therapy. Continue clindamycin for aspiration, day #4. Cultures positive for Escherichia coli, pansensitive. Continue ceftriaxone, day #3. Weight is up about 3 kg compared to yesterday morning. Sodium level increased to 145. Renal function is stable. Change IVF to 1/2 NS & reduce rate to 50 ml/hr ; resume Lasix. Dr. Haines and Dr. Barraza working on court-appointed DNR order. 04/09/18 Continue BiPAP, O2. Resp status is concerning, but I suspect she is fluid overloaded. Weight is up quite a lot. I am going to start her on scheduled IV diuretics, oral potassium and monitor. Dysphagia/Aspiration- continue clindamycin for aspiration, day #5. EColi UTI and Asp Pneumonia- Ceftriaxone, D #4 Continue nebs and oxygen. Order daily weights. Repeat labs and CXR in AM for stability. Long history of aspiration events. Recurrence will certainly be a concern. Guarded prognosis. Dr. Haines and Dr. Barraza working on court-appointed DNR order. 04/10/18 Patient has demonstrated excellent diuresis. Wt is down 5 kg overnight. Extremity edema is better. Labs are tolerating well. Continue current, and potentially will need to decrease Lasix dosing tomorrow. Concern for possible worsening aspiration- MBS today- pureed is potentially safest. report for that study is pending. Continue Clindamycin (d#6) for now to cover both Aspiration; has completed 5 days of ceftriaxone for UTI, discontinue. BiPAP, O2 support. Duoneb, pulmicort. Continue supportive medications. Court petition for DNR is pending. Follow labs, CXR as indicated.
--- NOTE | 2018-04-10 15:21 | Fluoroscopy Report ---
Indication:coughing and rule out aspiration Procedure:FL barium swallow modified MODIFIED BAR. SWALLOW STUDY: Videofluoroscopy was performed in conjunction with a agricultural sales representative from speech pathology and a separate report and recommendations will be provided. Thin, nectar, pudding, and solid consistencies of barium were administered. Tracheal penetration was noted with thin consistency barium. Delayed penetration was noted with the pudding consistency. The remainder of the exam is negative. There was no aspiration noted with any of the consistencies. Due to the patient's limited mobility, no AP imaging was able to be obtained. Impression: 1. Tracheal penetration with thin consistency barium. 2. Delayed tracheal penetration with pudding consistency. 3. No aspiration is visualized. Please see the speech pathology report for additional details and recommendations. Fluoroscopy dose: 1.20 rad Andi Don RPA/FAROOQ performed this under my direct supervision. .
[2018-04-10] MEDS: CEFTRIAXONE 1 G in NS 100 ML IV SCH (15:32)
[2018-04-10] MEDS: QUETIAPINE 100 MG TABLET PO SCH (20:19)
[2018-04-11] MEDS: ALBUTEROL/IPRATROPIUM 2.5mg-0.5mg/3ml NEB AEROSOL SCH ×6 (04:37→23:54)
[2018-04-11] MEDS: BUDESONIDE INH.SOLN 0.5mg/2ml NEB AEROSOL SCH ×2 (06:24→18:53)
[2018-04-11] MEDS: CLINDAMYCIN PB 600 MG/50 ML BAG IV SCH ×3 (06:30→21:47)
[2018-04-11] MEDS: LEVOTHYROXINE 150 MCG TABLET PO SCH (06:46)
[2018-04-11] MEDS: OMEPRAZOLE 20 MG CAPSULE PO SCH (06:46)
[2018-04-11] MEDS: ACETAMINOPHEN 325 MG TABLET PO PRN ×3 (06:48→20:06)
[2018-04-11] MEDS: CITALOPRAM 20 MG TABLET PO SCH (08:59)
[2018-04-11] MEDS: FUROSEMIDE 40 MG/4 ML INJECTION IVP SCH ×2 (08:59→20:05)
[2018-04-11] MEDS: ENOXAPARIN 40 MG/0.4 ML INJECTION SQ SCH (08:59)
--- NOTE | 2018-04-11 10:15 | Progress Note ---
- Date 04/11/18 Subjective: Chapis was seen this morning, still sleeping in bed. Her BiPAP was on. She was in no acute distress. She opened her eyes briefly with gentle touch, and shook her head no when I asked if she was in any pain. She did not keep her eyes open or engage in any further conversation. Speech therapy gave her a sippy cup to try to encourage her to drink more slowly and reduce risk of aspiration. Objective Vital signs: Temperature 98 F 04/11/18 07:28 Pulse Rate 73 04/11/18 08:00 Respiratory Rate 26 H 04/11/18 10:02 Blood Pressure 118/60 04/11/18 07:28 Pulse Oximetry 95 04/11/18 10:02 Rhythm: Normal Sinus Rhythm Height/Weight/BMI: Height 1.55 m Weight 98.2 kg Body Mass Index 39.6 - Constitutional Present: no acute distress, well nourished, well developed, obese - Routine HEENT Exam Head: Present: normocephalic Eye: Present: PERRL. Absent: conjunctival icterus, scleral injection Comments: BiPAP mask in place - Routine Respiratory Exam Present: decreased breath sounds - Routine Cardiovascular Exam Present: RRR, S1, S2, murmur - Routine Abdominal Exam Present: normoactive bowel sounds, distended. Absent: tenderness - Routine Extremities Exam Present: edema (trace bilaterally) - Routine Skin Exam Present: intact, dry, warm - Routine Neurological Exam Absent: alert (sleepy) - Routine Psychiatric Exam Present: unable to assess Results - Labs CBC & Chem 7: 04/11/18 04:06 04/11/18 04:06 Microbiology Results: Microbiology 04/06/18 08:20 Peripheral/Iv Start Blood Culture - Final No Growth After 5 Days 04/06/18 08:03 Peripheral/Iv Start Blood Culture - Final No Growth After 5 Days 04/06/18 10:29 Urine, Cath Straight Urine Culture - Final Escherichia coli Assessment and Plan (1) Acute aspiration pneumonia Current visit: Yes Status: Acute (2) Acute respiratory failure with hypoxia Current visit: Yes Status: Acute Assessment and Plan: Impression: Acute aspiration event with syncope/collapse Acute respiratory failure with hypoxia, hypercapnia, respiratory acidosis Aspiration pneumonia/pneumonitis Possible fluid overload. Hypernatremia H/o breast cancer with radiation/surgical changes to L breast Parkinson's with memory changes Known history of dysphagia DM2 Depression/JASMINA/schizoaffective d/o E.Coli UTI, Pansensitive - completed 5 days of ceftriaxone Plan: 04/11/18 Continue clindamycin for aspiration pneumonia, day #7. Modified barium swallow study shows tracheal penetration with thin consistency barium and delayed tracheal penetration with pudding consistency. There is no aspiration visualized. Respiratory status is essentially unchanged from yesterday. Continue diuresis with Lasix 40 mg IV twice a day. Her weight has increased 1 kg from yesterday. Consider adding Diamox to reduce contraction alkalosis. Renal function and electrolytes are overall stable. Court petition for DO NOT RESUSCITATE is pending. DVT Prophylaxis: Lovenox Resuscitation Status: Full Code - Physician Narrative Physician: Mirna Barraza MD Narrative: Date: 04/11/18 Time: 1539 I have independently evaluated and examined this patient. I reviewed the chart, the patient's history, and the DETASSELER/PA's documented findings as above. We discussed and formulated the assessment and plan as above with additions as below: Chapis had no complaints when seen except wanting her feet elevated on a pillow ; her voice was mumbled initially but became much clearer when she asked for the pillow. She denied cough or dyspnea. NAD; asymmetric pupils R-wave around 1.5 mm, L-oval 2 x 4 mm Respirations nonlabored with diminished airflow in few breath sounds audible anteriorly Slow progress, evidence of recurrent aspiration on film 2 days ago. Repeat chest x-ray on Friday. Continue supportive care. Overnight oximetry with 6 L oxygen tonight off BiPAP. Continue diuresis. Hospital Course Summary Disclaimer: The visit summary below is not to be considered part of the above Progress Note. Hospital Course: Impression: Acute aspiration event with syncope/collapse Acute respiratory failure with hypoxia Aspiration pneumonia/pneumonitis Possible fluid overload. Parkinson's with memory changes Known history of dysphagia DM2 Depression/JASMINA/BPAD 04/05/18 Monitor on oxygen overnight. Antibiotics for coverage of likely aspiration event- Clindamycin. Allergy to both PCN and Cephalosporins. O2, PRN suction. Ask ST to see patient for further evaluation. Monitor BG. Monitor labs closely. NPO until ST sees pt. May take meds with sips. Follow CXR. Add LMWH for DVT PX. Add PPI due to aspiration event. Lasix x 1 upon admission. Full code per [place] paperwork. 04/06/18 Hypoxia, somnolence - ABG ordered, showing respiratory acidosis (pH 7.29, PCO2 62, PO2 64 on 10L) - BiPAP trial ordered. CXR reviewed and compared to previous: left sided infiltrate more prominent. Hypotension overnight requiring 500 mL fluid bolus - BP low-normal currently and IVF are not infusing. SIRS criteria noted: Fever (100.7), tachypnea, leukocytosis - sepsis w/u ordered. Lactate and procalcitonin were normal. BC drawn. Pyuria present-ceftriaxone initiated pending results of urine culture. Cont clinda for aspiration. Continue suctioning, breathing treatments, speech therapy. Soft tissue ultrasound ordered to delineate firmness to left chest wall. 04/07/18 Currently on 6L per [place] with 95% sats. Will try weaning. Speech has advanced her diet to pureed with thin liquids. Day #2 of Rocephin and Day #3 of clindamycin. UA was performed yesterday as part of sepsis w-u. + nitrates and leuks. Urine culture is pending. Leukocytosis is improving. Consider resuming her home Lasix tomorrow if BP remains stable. Labs stable. Consider DC IVF's later today if she is taking po well. Recommend OP f-u of L breast scarring vs mass. 04/08/18 Continue BiPAP while at rest, 5 L of oxygen, otherwise. Respiratory status is improving. Dysphagia, also improving with speech therapy. Continue clindamycin for aspiration, day #4. Cultures positive for Escherichia coli, pansensitive. Continue ceftriaxone, day #3. Weight is up about 3 kg compared to yesterday morning. Sodium level increased to 145. Renal function is stable. Change IVF to 1/2 NS & reduce rate to 50 ml/hr ; resume Lasix. Dr. Haines and Dr. Barraza working on court-appointed DNR order. 04/09/18 Continue BiPAP, O2. Resp status is concerning, but I suspect she is fluid overloaded. Weight is up quite a lot. I am going to start her on scheduled IV diuretics, oral potassium and monitor. Dysphagia/Aspiration- continue clindamycin for aspiration, day #5. EColi UTI and Asp Pneumonia- Ceftriaxone, D #4 Continue nebs and oxygen. Order daily weights. Repeat labs and CXR in AM for stability. Long history of aspiration events. Recurrence will certainly be a concern. Guarded prognosis. Dr. Haines and Dr. Barraza working on court-appointed DNR order. 04/10/18 Patient has demonstrated excellent diuresis. Wt is down 5 kg overnight. Extremity edema is better. Labs are tolerating well. Continue current, and potentially will need to decrease Lasix dosing tomorrow. Concern for possible worsening aspiration- MBS today- pureed is potentially safest. Continue Clindamycin (d#6) for now to cover both Aspiration; has completed 5 days of ceftriaxone for UTI, discontinue. BiPAP, O2 support. Amanda, pulmicort. 04/11/18 Continue clindamycin for aspiration pneumonia, day #7. Modified barium swallow study shows tracheal penetration with thin consistency barium and delayed tracheal penetration with pudding consistency. There is no aspiration visualized. Respiratory status is essentially unchanged from yesterday. Continue diuresis with Lasix 40 mg IV twice a day. Her weight has increased 1 kg from yesterday. Consider adding Diamox to reduce contraction alkalosis. Renal function and electrolytes are overall stable.
[2018-04-11] MEDS: SALINE FLUSH 10ml SYRINGE IVF PRN ×2 (14:13→21:46)
[2018-04-11] MEDS: QUETIAPINE 100 MG TABLET PO SCH (20:06)
[2018-04-11] MEDS: NS FLUSH BAG 500ml IV PRN (21:47)
[2018-04-12] MEDS: ACETAMINOPHEN 325 MG TABLET PO PRN ×5 (03:02→23:44)
[2018-04-12] MEDS: ALBUTEROL/IPRATROPIUM 2.5mg-0.5mg/3ml NEB AEROSOL SCH ×5 (03:43→19:50)
[2018-04-12] MEDS: OMEPRAZOLE 20 MG CAPSULE PO SCH (06:02)
[2018-04-12] MEDS: SALINE FLUSH 10ml SYRINGE IVF PRN ×2 (06:02→08:17)
[2018-04-12] MEDS: CLINDAMYCIN PB 600 MG/50 ML BAG IV SCH (06:02)
[2018-04-12] MEDS: LEVOTHYROXINE 150 MCG TABLET PO SCH (06:03)
[2018-04-12] MEDS: BUDESONIDE INH.SOLN 0.5mg/2ml NEB AEROSOL SCH ×2 (06:34→19:51)
[2018-04-12] MEDS: ENOXAPARIN 40 MG/0.4 ML INJECTION SQ SCH (08:16)
[2018-04-12] MEDS: FUROSEMIDE 40 MG/4 ML INJECTION IVP SCH ×2 (08:16→20:25)
[2018-04-12] MEDS: CITALOPRAM 20 MG TABLET PO SCH (08:16)
--- NOTE | 2018-04-12 09:03 | Progress Note ---
- Date 04/12/18 Subjective: Chapis was on 6-10 L of O2 all night, and did not use BiPAP. She desats quickly with any activity. She's awake and alert this am - asks for a bath and for her back to be washed. She c/o "a little" pain in her back, chest (which she states is not new), and head. She asks for Tylenol. She thinks her breathing is getting better. She denies abdominal pain or n/v. She c/o dry mouth. Objective Vital signs: Temperature 97.8 F 04/12/18 07:43 Pulse Rate 84 04/12/18 07:43 Respiratory Rate 18 04/12/18 07:43 Blood Pressure 125/66 04/12/18 07:43 Pulse Oximetry 94 04/12/18 07:43 Rhythm: Normal Sinus Rhythm Height/Weight/BMI: Height 1.55 m Weight 96 kg Body Mass Index 39.6 - Constitutional Present: no acute distress, well nourished, well developed - Routine HEENT Exam Head: Present: normocephalic Eye: Absent: conjunctival icterus, scleral injection ENT: Present: mucous membranes dry. Absent: oropharynx clear (thrush), dentition normal - Routine Respiratory Exam Present: decreased breath sounds, crackles (b/l bases) - Routine Cardiovascular Exam Present: RRR, S1, S2 - Routine Abdominal Exam Present: soft, normoactive bowel sounds, non distended, non tender - Routine Extremities Exam Present: edema (trace-1+) - Routine Skin Exam Present: intact, dry, warm - Routine Neurological Exam Present: alert speech is more understandable today - Routine Psychiatric Exam Present: cooperative Results - Labs CBC & Chem 7: 04/11/18 04:06 04/12/18 04:42 Microbiology Results: Microbiology 04/06/18 08:20 Peripheral/Iv Start Blood Culture - Final No Growth After 5 Days 04/06/18 08:03 Peripheral/Iv Start Blood Culture - Final No Growth After 5 Days 04/06/18 10:29 Urine, Cath Straight Urine Culture - Final Escherichia coli Assessment and Plan (1) Acute aspiration pneumonia Current visit: Yes Status: Acute (2) Acute respiratory failure with hypoxia Current visit: Yes Status: Acute Assessment and Plan: Impression: Acute aspiration event with syncope/collapse Acute respiratory failure with hypoxia, hypercapnia, respiratory acidosis Aspiration pneumonia/pneumonitis Possible fluid overload. Hypernatremia - resolved H/o breast cancer with radiation/surgical changes to L breast Parkinson's with memory changes Known history of dysphagia DM2 Depression/JASMINA/schizoaffective d/o E.Coli UTI, Pansensitive - completed 5 days of ceftriaxone Thrush 04/12 Plan: 04/12/18 Discontinue clindamycin for aspiration pneumonia after 8 days of treatment. CO2 rising, 33-->35-->37 on Lasix 40 mg IV BID. Good UO & weight trending down. Check CXR. May be able to reduce diuresis if effusions have improved. Consider diamox. Tolerated overnight without use of BiPAP but oxygen had to be increased to 10L d /t sats in the 80s while on 6L. Start nystatin for thrush DVT Prophylaxis: Lovenox GI Prophylaxis: Protonix Resuscitation Status: Full Code - Physician Narrative Physician: Mirna Barraza MD Narrative: Date: 04/12/18 Time: 1809 I have independently evaluated and examined this patient. I reviewed the chart, the patient's history, and the PRODUCT DESIGN MANAGER/PA's documented findings as above. We discussed and formulated the assessment and plan as above with additions as below: Mrs. Sesay was finishing lunch when seen in denied dyspnea, nausea, or fever. She reported pain in her legs and persistent cough and sputum production. I was subsequently advised that the patient was having increased difficulty breathing and asked to go back on BiPAP; oxygen demand has increased and she has been on 8-10 L oxygen per nasal cannula today and FiO2 was increased to 70% on BiPAP. The patient was not distressed and respirations were nonlabored at the time of my assessment but she was pleasantly confused as per baseline. Crackles were present in the right upper/posterior lung field and expiratory wheezing was present bilaterally Chest x-ray reviewed by myself and there are probable bilateral pleural effusions, air bronchograms present on the left-overall no real change from prior film. Cannot exclude recurrent aspiration given worsening of symptoms following noon meal; continue breathing treatments/diuresis, monitor clinically. Telemetry reviewed-sinus rhythm. Prognosis poor. Hospital Course Summary Disclaimer: The visit summary below is not to be considered part of the above Progress Note. Hospital Course: Impression: Acute aspiration event with syncope/collapse Acute respiratory failure with hypoxia Aspiration pneumonia/pneumonitis Possible fluid overload. Parkinson's with memory changes Known history of dysphagia DM2 Depression/JASMINA/BPAD 04/05/18 Monitor on oxygen overnight. Antibiotics for coverage of likely aspiration event- Clindamycin. Allergy to both PCN and Cephalosporins. O2, PRN suction. Ask ST to see patient for further evaluation. Monitor BG. Monitor labs closely. NPO until ST sees pt. May take meds with sips. Follow CXR. Add LMWH for DVT PX. Add PPI due to aspiration event. Lasix x 1 upon admission. Full code per [place] paperwork. 04/06/18 Hypoxia, somnolence - ABG ordered, showing respiratory acidosis (pH 7.29, PCO2 62, PO2 64 on 10L) - BiPAP trial ordered. CXR reviewed and compared to previous: left sided infiltrate more prominent. Hypotension overnight requiring 500 mL fluid bolus - BP low-normal currently and IVF are not infusing. SIRS criteria noted: Fever (100.7), tachypnea, leukocytosis - sepsis w/u ordered. Lactate and procalcitonin were normal. BC drawn. Pyuria present-ceftriaxone initiated pending results of urine culture. Cont clinda for aspiration. Continue suctioning, breathing treatments, speech therapy. Soft tissue ultrasound ordered to delineate firmness to left chest wall. 04/07/18 Currently on 6L per [place] with 95% sats. Will try weaning. Speech has advanced her diet to pureed with thin liquids. Day #2 of Rocephin and Day #3 of clindamycin. UA was performed yesterday as part of sepsis w-u. + nitrates and leuks. Urine culture is pending. Leukocytosis is improving. Consider resuming her home Lasix tomorrow if BP remains stable. Labs stable. Consider DC IVF's later today if she is taking po well. Recommend OP f-u of L breast scarring vs mass. 04/08/18 Continue BiPAP while at rest, 5 L of oxygen, otherwise. Respiratory status is improving. Dysphagia, also improving with speech therapy. Continue clindamycin for aspiration, day #4. Cultures positive for Escherichia coli, pansensitive. Continue ceftriaxone, day #3. Weight is up about 3 kg compared to yesterday morning. Sodium level increased to 145. Renal function is stable. Change IVF to 1/2 NS & reduce rate to 50 ml/hr ; resume Lasix. Dr. Haines and Dr. Barraza working on court-appointed DNR order. 04/09/18 Continue BiPAP, O2. Resp status is concerning, but I suspect she is fluid overloaded. Weight is up quite a lot. I am going to start her on scheduled IV diuretics, oral potassium and monitor. Dysphagia/Aspiration- continue clindamycin for aspiration, day #5. EColi UTI and Asp Pneumonia- Ceftriaxone, D #4 Continue nebs and oxygen. Order daily weights. Repeat labs and CXR in AM for stability. Long history of aspiration events. Recurrence will certainly be a concern. Guarded prognosis. Dr. Haines and Dr. Barraza working on court-appointed DNR order. 04/10/18 Patient has demonstrated excellent diuresis. Wt is down 5 kg overnight. Extremity edema is better. Labs are tolerating well. Continue current, and potentially will need to decrease Lasix dosing tomorrow. Concern for possible worsening aspiration- MBS today- pureed is potentially safest. Continue Clindamycin (d#6) for now to cover both Aspiration; has completed 5 days of ceftriaxone for UTI, discontinue. BiPAP, O2 support. Duoneb, pulmicort. 04/11/18 Continue clindamycin for aspiration pneumonia, day #7. Modified barium swallow study shows tracheal penetration with thin consistency barium and delayed tracheal penetration with pudding consistency. There is no aspiration visualized. Respiratory status is essentially unchanged from yesterday. Continue diuresis with Lasix 40 mg IV twice a day. Her weight has increased 1 kg from yesterday. Consider adding Diamox to reduce contraction alkalosis. Renal function and electrolytes are overall stable. 04/12/18 Discontinue clindamycin for aspiration pneumonia after 8 days of treatment. CO2 rising, 33-->35-->37 on Lasix 40 mg IV BID. Good UO & weight trending down. Check CXR. May be able to reduce diuresis if effusions have improved. Tolerated overnight without use of BiPAP but oxygen had to be increased to 10L d /t sats in the 80s while on 6L. Start nystatin for thrush
[2018-04-12] MEDS: NYSTATIN 500,000 units/5 ml ORAL LIQUID PO SCH ×4 (10:25→20:32)
[2018-04-12] MEDS: MORPHINE SULFATE 4mg INJECTION IVP PRN (15:18)
[2018-04-12] MEDS: QUETIAPINE 100 MG TABLET PO SCH (20:25)
[2018-04-13] MEDS: ALBUTEROL/IPRATROPIUM 2.5mg-0.5mg/3ml NEB AEROSOL SCH ×6 (01:45→20:35)
[2018-04-13] MEDS: LEVOTHYROXINE 150 MCG TABLET PO SCH (05:35)
[2018-04-13] MEDS: ACETAMINOPHEN 325 MG TABLET PO PRN ×2 (05:35→18:17)
[2018-04-13] MEDS: OMEPRAZOLE 20 MG CAPSULE PO SCH (05:35)
--- NOTE | 2018-04-13 07:26 | XRay Report ---
Indication: f/u effusions PROCEDURE: XR chest 1V: Encounter: Initial Comparison: April 09, 2018 Findings: Severe bilateral airspace consolidation is minimally improved on the right. Pleural effusions are slightly smaller. No pneumothorax or worsening airspace disease. Mediastinal contours are stable. Impression: Slightly improved pleural effusions. .
[2018-04-13] MEDS: BUDESONIDE INH.SOLN 0.5mg/2ml NEB AEROSOL SCH ×2 (08:55→20:34)
--- NOTE | 2018-04-13 10:51 | Progress Note ---
- Date 04/13/18 Subjective: Chapis was awake, on 8 L of oxygen per nasal cannula. She states that her breathing is okay. She denies any pain today, including headache or back pain. She states that she slept well last night. She denies any nausea or abdominal pain. She had a bowel movement on 04/12/18. She ate 100% of her breakfast. Her weight is trending down and she's had excellent urine output. Rosales still in place. Objective Vital signs: Temperature 96.9 F 04/13/18 07:19 Pulse Rate 90 04/13/18 07:19 Respiratory Rate 24 04/13/18 08:55 Blood Pressure 127/67 04/13/18 07:19 Pulse Oximetry 94 04/13/18 08:55 Rhythm: Normal Sinus Rhythm Height/Weight/BMI: Height 1.55 m Weight 94.4 kg Body Mass Index 39.6 - Constitutional Present: no acute distress, well nourished, well developed - Routine HEENT Exam Head: Present: normocephalic Eye: Absent: PERRL (left pupil is misshapen), conjunctival icterus, scleral injection ENT: Absent: oropharynx clear (thrush, improving) - Routine Respiratory Exam Present: decreased breath sounds, rales (bilateral bases) - Routine Cardiovascular Exam Present: RRR, S1, S2 - Routine Abdominal Exam Present: soft, normoactive bowel sounds, non distended, non tender - Routine Extremities Exam Present: edema (trace pedal edema), pulses intact - Routine Skin Exam Present: intact, dry, warm - Routine Neurological Exam Present: alert, normal speech (speech is mumbled, baseline) - Routine Psychiatric Exam Present: normal affect, cooperative Results - Labs CBC & Chem 7: 04/13/18 05:18 04/13/18 05:18 Microbiology Results: Microbiology 04/06/18 08:20 Peripheral/Iv Start Blood Culture - Final No Growth After 5 Days 04/06/18 08:03 Peripheral/Iv Start Blood Culture - Final No Growth After 5 Days 04/06/18 10:29 Urine, Cath Straight Urine Culture - Final Escherichia coli - ABG Interpretation ABG results: 04/12/18 04/12/18 15:28 16:04 ABG pH 7.387 7.421 ABG pCO2 62 H* 56 H ABG pO2 41.9 L 92.3 ABG HCO3 37.1 H 36.2 H ABG Total CO2 39.0 H 37.9 H ABG O2 Saturation 74.8 L 97.1 ABG Base Excess 10.1 H 10.0 H Assessment and Plan (1) Acute aspiration pneumonia Current visit: Yes Status: Acute (2) Acute respiratory failure with hypoxia Current visit: Yes Status: Acute Assessment and Plan: Impression: Acute aspiration event with syncope/collapse Acute respiratory failure with hypoxia, hypercapnia, respiratory acidosis Aspiration pneumonia/pneumonitis Possible fluid overload. Hypernatremia - resolved H/o breast cancer with radiation/surgical changes to L breast Parkinson's with memory changes Known history of dysphagia DM2 Depression/JASMINA/schizoaffective d/o E.Coli UTI, Pansensitive - completed 5 days of ceftriaxone Thrush 04/12 Plan: 04/13/18 CO2 rising, 33-->35-->37-->39 on Lasix 40 mg IV BID. Good UO & weight trending down. Give Diamox 500 mg x1. CXR personally reviewed - improving effusions but still with severe b/l consolidation. Prior CXR in 2017 also showed increased markings on the left questionably fibrosis. Will reduce frequency of Lasix to 40 mg IV daily. Negative fluid balance for the last several days. DC Bobby. Has not been on BiPAP since yesterday afternoon, when she may have aspirated after noon meal. Currently on 8L of O2. Remains afebrile, WBC normal. D/W Dr. Islas. DVT Prophylaxis: Lovenox GI Prophylaxis: other (omeprazole) Resuscitation Status: Full Code - Physician Narrative Narrative: Date: 04/13/18 Time: 1810 S: Pt denies any acute complaints. Denies any cp, sob, n/v/d, f/c. O: Gen: No distress, alert and oriented x3 Cards: RRR without murmurs Abd: Soft, non-tender A/P: Aspiration -Speech following Respiratory failure -Cont. supportive tx and back down on lasix Hospital Course Summary Disclaimer: The visit summary below is not to be considered part of the above Progress Note. Hospital Course: Impression: Acute aspiration event with syncope/collapse Acute respiratory failure with hypoxia Aspiration pneumonia/pneumonitis Possible fluid overload. Parkinson's with memory changes Known history of dysphagia DM2 Depression/JASMINA/BPAD 04/05/18 Monitor on oxygen overnight. Antibiotics for coverage of likely aspiration event- Clindamycin. Allergy to both PCN and Cephalosporins. O2, PRN suction. Ask ST to see patient for further evaluation. NPO until ST sees pt. May take meds with sips. Add LMWH for DVT PX. Add PPI due to aspiration event. Lasix x 1 upon admission. Full code per [place] paperwork. 04/06/18 Hypoxia, somnolence - ABG ordered, showing respiratory acidosis (pH 7.29, PCO2 62, PO2 64 on 10L) - BiPAP trial ordered. CXR reviewed and compared to previous: left sided infiltrate more prominent. Hypotension overnight requiring 500 mL fluid bolus - BP low-normal currently and IVF are not infusing. SIRS criteria noted: Fever (100.7), tachypnea, leukocytosis - sepsis w/u ordered. Lactate and procalcitonin were normal. BC drawn. Pyuria present-ceftriaxone initiated pending results of urine culture. Cont clinda for aspiration. Continue suctioning, breathing treatments, speech therapy. Soft tissue ultrasound ordered to delineate firmness to left chest wall. 04/07/18 Currently on 6L per [place] with 95% sats. Will try weaning. Speech has advanced her diet to pureed with thin liquids. Day #2 of Rocephin and Day #3 of clindamycin. UA was performed yesterday as part of sepsis w-u. + nitrates and leuks. Urine culture is pending. Leukocytosis is improving. Consider resuming her home Lasix tomorrow if BP remains stable. Labs stable. Consider DC IVF's later today if she is taking po well. Recommend OP f-u of L breast scarring vs mass. 04/08/18 Continue BiPAP while at rest, 5 L of oxygen, otherwise. Respiratory status is improving. Dysphagia, also improving with speech therapy. Continue clindamycin for aspiration, day #4. Cultures positive for Escherichia coli, pansensitive. Continue ceftriaxone, day #3. Weight is up about 3 kg compared to yesterday morning. Sodium level increased to 145. Renal function is stable. Change IVF to 1/2 NS & reduce rate to 50 ml/hr ; resume Lasix. Dr. Haines and Dr. Barraza working on court-appointed DNR order. 5/10/18 Continue BiPAP, O2. Resp status is concerning, but I suspect she is fluid overloaded. Weight is up quite a lot. I am going to start her on scheduled IV diuretics, oral potassium and monitor. Dysphagia/Aspiration- continue clindamycin for aspiration, day #5. EColi UTI and Asp Pneumonia- Ceftriaxone, D #4 Order daily weights. Repeat labs and CXR in AM for stability. Long history of aspiration events. Recurrence will certainly be a concern. 04/10/18 Patient has demonstrated excellent diuresis. Wt is down 5 kg overnight. Extremity edema is better. Labs are tolerating well. Continue current, and potentially will need to decrease Lasix dosing tomorrow. Concern for possible worsening aspiration- MBS today- pureed is potentially safest. Continue Clindamycin (d#6) for now to cover both Aspiration; has completed 5 days of ceftriaxone for UTI, discontinue. BiPAP, O2 support. wes Patel. 04/11/18 Continue clindamycin for aspiration pneumonia, day #7. Modified barium swallow study shows tracheal penetration with thin consistency barium and delayed tracheal penetration with pudding consistency. There is no aspiration visualized. Respiratory status is essentially unchanged from yesterday. Continue diuresis with Lasix 40 mg IV twice a day. Her weight has increased 1 kg from yesterday. Consider adding Diamox to reduce contraction alkalosis. Renal function and electrolytes are overall stable. 04/12/18 Discontinue clindamycin for aspiration pneumonia after 8 days of treatment. CO2 rising, 33-->35-->37 on Lasix 40 mg IV BID. Good UO & weight trending down. Check CXR. May be able to reduce diuresis if effusions have improved. Tolerated overnight without use of BiPAP but oxygen had to be increased to 10L d /t sats in the 80s while on 6L. Start nystatin for thrush 04/13/18 CO2 rising, 33-->35-->37-->39 on Lasix 40 mg IV BID. Good UO & weight trending down. Give Diamox 500 mg x1. CXR personally reviewed - improving effusions but still with severe b/l consolidation. Prior CXR in 2017 also showed increased markings on the left questionably fibrosis. Will reduce frequency of Lasix to 40 mg IV daily. Negative fluid balance for the last several days. JAN Rosales. Has not been on BiPAP since yesterday afternoon, when she may have aspirated after noon meal. Currently on 8L of O2. Remains afebrile, WBC normal.
[2018-04-13] MEDS: ENOXAPARIN 40 MG/0.4 ML INJECTION SQ SCH (11:18)
[2018-04-13] MEDS: NYSTATIN 500,000 units/5 ml ORAL LIQUID PO SCH ×4 (11:19→21:12)
[2018-04-13] MEDS: CITALOPRAM 20 MG TABLET PO SCH (11:19)
[2018-04-13] MEDS: FUROSEMIDE 40 MG/4 ML INJECTION IVP SCH ×2 (11:20)
[2018-04-13] MEDS: SALINE FLUSH 10ml SYRINGE IVF PRN (11:20)
[2018-04-13] MEDS ORDERED: FALL RISK - PHARMACY CONSULT MC ONE (17:25)
[2018-04-13] MEDS: QUETIAPINE 100 MG TABLET PO SCH (21:12)
[2018-04-14] MEDS: ACETAMINOPHEN 325 MG TABLET PO PRN ×3 (00:12→14:23)
[2018-04-14] MEDS: ALBUTEROL/IPRATROPIUM 2.5mg-0.5mg/3ml NEB AEROSOL SCH ×7 (00:18→22:30)
[2018-04-14] MEDS: BUDESONIDE INH.SOLN 0.5mg/2ml NEB AEROSOL SCH ×2 (08:15→18:58)
--- NOTE | 2018-04-14 08:30 | Progress Note ---
- Date 04/14/18 Subjective: Patient is seen in follow-up of aspiration. Has completed 8 days of antibiotics. She feels her breathing is okay. She complains of pain in her feet (which is chronic for her). She requests Tylenol. She denies nausea or vomiting. She had her Rosales removed yesterday. Continues to require 8 liters of oxygen. Objective Vital signs: Temperature 97.6 F 04/14/18 07:46 Pulse Rate 89 04/14/18 07:46 Respiratory Rate 38 H 04/14/18 07:46 Blood Pressure 126/69 04/14/18 07:46 Pulse Oximetry 94 04/14/18 07:46 Height/Weight/BMI: Height 1.55 m Weight 92.3 kg Body Mass Index 39.6 - Constitutional Present: no acute distress, well nourished, well developed - Routine HEENT Exam Head: Present: normocephalic, atraumatic Comments: Tongue is red and dry. No white exudate to tongue or buccal mucosa . - Routine Respiratory Exam Present: rales, wheezes Comments: L>R - Routine Cardiovascular Exam Present: RRR, no murmur - Routine Abdominal Exam Present: soft, non distended, non tender - Routine Extremities Exam Present: edema (trace ), normal capillary refill - Routine Skin Exam Present: dry, warm - Routine Neurological Exam Present: alert - Routine Lymphatic Exam Lymphatic: Absent: adenopathy - Routine Psychiatric Exam Present: normal affect, cooperative Results - Labs CBC & Chem 7: 04/14/18 08:53 04/14/18 08:53 Microbiology Results: Microbiology 04/06/18 08:20 Peripheral/Iv Start Blood Culture - Final No Growth After 5 Days 04/06/18 08:03 Peripheral/Iv Start Blood Culture - Final No Growth After 5 Days 04/06/18 10:29 Urine, Cath Straight Urine Culture - Final Escherichia coli - ABG Interpretation ABG results: 04/12/18 04/12/18 15:28 16:04 ABG pH 7.387 7.421 ABG pCO2 62 H* 56 H ABG pO2 41.9 L 92.3 ABG HCO3 37.1 H 36.2 H ABG Total CO2 39.0 H 37.9 H ABG O2 Saturation 74.8 L 97.1 ABG Base Excess 10.1 H 10.0 H Assessment and Plan (1) Acute aspiration pneumonia Current visit: Yes Status: Acute (2) Acute respiratory failure with hypoxia Current visit: Yes Status: Acute Assessment and Plan: Impression: Acute aspiration event with syncope/collapse Acute respiratory failure with hypoxia, hypercapnia, respiratory acidosis Aspiration pneumonia/pneumonitis-completed 8 days of clindamycin Possible fluid overload. Hypernatremia - resolved H/o breast cancer with radiation/surgical changes to L breast Parkinson's with memory changes Known history of dysphagia DM2 Depression/JASMINA/schizoaffective d/o E.Coli UTI, Pansensitive - completed 5 days of ceftriaxone Thrush 04/12 Plan: Weight continues to trend down. Rosales catheter was removed yesterday. Currently on Lasix 40 mg IV. Check BMP. May consider converting her to by mouth Lasix. Remains afebrile. Check CBC to monitor white count. Has been off of antibiotics for 2 days. Continues on nystatin for thrush. - Physician Narrative Narrative: Date: 04/14/18 Time: 1834 S: Pt denied any acute complaints, denied any n/v/d. O: Lungs: CTAB Cards: RRR without murmurs A/P: Cont. supportive tx and consider decreasing lasix tx. Look to formulate discharge plan. Hospital Course Summary Disclaimer: The visit summary below is not to be considered part of the above Progress Note. Hospital Course: Impression: Acute aspiration event with syncope/collapse Acute respiratory failure with hypoxia Aspiration pneumonia/pneumonitis Possible fluid overload. Parkinson's with memory changes Known history of dysphagia DM2 Depression/JASMINA/BPAD 04/05/18 Monitor on oxygen overnight. Antibiotics for coverage of likely aspiration event- Clindamycin. Allergy to both PCN and Cephalosporins. O2, PRN suction. Ask ST to see patient for further evaluation. NPO until ST sees pt. May take meds with sips. Add LMWH for DVT PX. Add PPI due to aspiration event. Lasix x 1 upon admission. Full code per [place] paperwork. 04/06/18 Hypoxia, somnolence - ABG ordered, showing respiratory acidosis (pH 7.29, PCO2 62, PO2 64 on 10L) - BiPAP trial ordered. CXR reviewed and compared to previous: left sided infiltrate more prominent. Hypotension overnight requiring 500 mL fluid bolus - BP low-normal currently and IVF are not infusing. SIRS criteria noted: Fever (100.7), tachypnea, leukocytosis - sepsis w/u ordered. Lactate and procalcitonin were normal. BC drawn. Pyuria present-ceftriaxone initiated pending results of urine culture. Cont clinda for aspiration. Continue suctioning, breathing treatments, speech therapy. Soft tissue ultrasound ordered to delineate firmness to left chest wall. 04/07/18 Currently on 6L per [place] with 95% sats. Will try weaning. Speech has advanced her diet to pureed with thin liquids. Day #2 of Rocephin and Day #3 of clindamycin. UA was performed yesterday as part of sepsis w-u. + nitrates and leuks. Urine culture is pending. Leukocytosis is improving. Consider resuming her home Lasix tomorrow if BP remains stable. Labs stable. Consider DC IVF's later today if she is taking po well. Recommend OP f-u of L breast scarring vs mass. 04/08/18 Continue BiPAP while at rest, 5 L of oxygen, otherwise. Respiratory status is improving. Dysphagia, also improving with speech therapy. Continue clindamycin for aspiration, day #4. Cultures positive for Escherichia coli, pansensitive. Continue ceftriaxone, day #3. Weight is up about 3 kg compared to yesterday morning. Sodium level increased to 145. Renal function is stable. Change IVF to 1/2 NS & reduce rate to 50 ml/hr ; resume Lasix. Dr. Haines and Dr. Barraza working on court-appointed DNR order. 04/09/18 Continue BiPAP, O2. Resp status is concerning, but I suspect she is fluid overloaded. Weight is up quite a lot. I am going to start her on scheduled IV diuretics, oral potassium and monitor. Dysphagia/Aspiration- continue clindamycin for aspiration, day #5. EColi UTI and Asp Pneumonia- Ceftriaxone, D #4 Order daily weights. Repeat labs and CXR in AM for stability. Long history of aspiration events. Recurrence will certainly be a concern. 04/10/18 Patient has demonstrated excellent diuresis. Wt is down 5 kg overnight. Extremity edema is better. Labs are tolerating well. Continue current, and potentially will need to decrease Lasix dosing tomorrow. Concern for possible worsening aspiration- MBS today- pureed is potentially safest. Continue Clindamycin (d#6) for now to cover both Aspiration; has completed 5 days of ceftriaxone for UTI, discontinue. BiPAP, O2 support. wes Patel. 04/11/18 Continue clindamycin for aspiration pneumonia, day #7. Modified barium swallow study shows tracheal penetration with thin consistency barium and delayed tracheal penetration with pudding consistency. There is no aspiration visualized. Respiratory status is essentially unchanged from yesterday. Continue diuresis with Lasix 40 mg IV twice a day. Her weight has increased 1 kg from yesterday. Consider adding Diamox to reduce contraction alkalosis. Renal function and electrolytes are overall stable. 04/12/18 Discontinue clindamycin for aspiration pneumonia after 8 days of treatment. CO2 rising, 33-->35-->37 on Lasix 40 mg IV BID. Good UO & weight trending down. Check CXR. May be able to reduce diuresis if effusions have improved. Tolerated overnight without use of BiPAP but oxygen had to be increased to 10L d /t sats in the 80s while on 6L. Start nystatin for thrush 04/13/18 CO2 rising, 33-->35-->37-->39 on Lasix 40 mg IV BID. Good UO & weight trending down. Give Diamox 500 mg x1. CXR personally reviewed - improving effusions but still with severe b/l consolidation. Prior CXR in 2017 also showed increased markings on the left questionably fibrosis. Will reduce frequency of Lasix to 40 mg IV daily. Negative fluid balance for the last several days. DC Rosales. Has not been on BiPAP since yesterday afternoon, when she may have aspirated after noon meal. Currently on 8L of O2. Remains afebrile, WBC normal. 04/14/18 Weight continues to trend down. Rosales catheter was removed yesterday. Currently on Lasix 40 mg IV. Check BMP. May consider converting her to by mouth Lasix. Remains afebrile. Check CBC to monitor white count. Has been off of antibiotics for 2 days. Continues on nystatin for thrush.
[2018-04-14] MEDS: CITALOPRAM 20 MG TABLET PO SCH (08:55)
[2018-04-14] MEDS: OMEPRAZOLE 20 MG CAPSULE PO SCH (08:55)
[2018-04-14] MEDS: NYSTATIN 500,000 units/5 ml ORAL LIQUID PO SCH ×4 (08:55→20:46)
[2018-04-14] MEDS: ENOXAPARIN 40 MG/0.4 ML INJECTION SQ SCH (08:55)
[2018-04-14] MEDS: LEVOTHYROXINE 150 MCG TABLET PO SCH (08:56)
[2018-04-14] MEDS: SALINE FLUSH 10ml SYRINGE IVF PRN (08:57)
[2018-04-14] MEDS: FUROSEMIDE 40 MG/4 ML INJECTION IVP SCH (08:57)
[2018-04-14] MEDS: QUETIAPINE 100 MG TABLET PO SCH (20:46)
[2018-04-14] MEDS: MORPHINE SULFATE 4mg INJECTION IVP PRN (22:42)
[2018-04-15] MEDS: ALBUTEROL/IPRATROPIUM 2.5mg-0.5mg/3ml NEB AEROSOL SCH ×3 (02:13→10:43)
[2018-04-15] MEDS: OMEPRAZOLE 20 MG CAPSULE PO SCH (05:57)
[2018-04-15] MEDS: LEVOTHYROXINE 150 MCG TABLET PO SCH (05:58)
[2018-04-15] MEDS: BUDESONIDE INH.SOLN 0.5mg/2ml NEB AEROSOL SCH (06:33)
[2018-04-15] MEDS: ENOXAPARIN 40 MG/0.4 ML INJECTION SQ SCH (09:28)
[2018-04-15] MEDS: ACETAMINOPHEN 325 MG TABLET PO PRN ×2 (09:28→14:21)
[2018-04-15] MEDS: CITALOPRAM 20 MG TABLET PO SCH (09:28)
[2018-04-15] MEDS: SALINE FLUSH 10ml SYRINGE IVF PRN (09:29)
[2018-04-15] MEDS: FUROSEMIDE 40 MG/4 ML INJECTION IVP SCH (09:29)
[2018-04-15] MEDS: NYSTATIN 500,000 units/5 ml ORAL LIQUID PO SCH ×2 (09:29→14:21)
[2018-04-15 11:23] VITALS: BP 119/55; PULSE 85; RESP 20; TEMP 97.3
--- NOTE | 2018-04-15 12:46 | Progress Note ---
- Date 04/15/18 Subjective: Chapis is seen in follow up. She is alert, denies any c/o. Remains confused. Objective Vital signs: Temperature 97.3 F 04/15/18 11:22 Pulse Rate 85 04/15/18 11:22 Respiratory Rate 20 04/15/18 11:22 Blood Pressure 119/55 04/15/18 11:22 Pulse Oximetry 92 04/15/18 11:22 Rhythm: Normal Sinus Rhythm Height/Weight/BMI: Height 1.55 m Weight 93 kg Body Mass Index 39.6 - Constitutional Present: no acute distress, obese, cooperative - Routine HEENT Exam Head: Present: normocephalic, atraumatic Eye: Present: EOMI, PERRL ENT: Present: mucous membranes moist - Routine Respiratory Exam Present: decreased breath sounds, wheezes (Faint wheezes left base, but overall improved. ), diminished air movement - Routine Cardiovascular Exam Present: RRR, S1, S2, no murmur - Routine Abdominal Exam Present: soft, normoactive bowel sounds, non distended, non tender - Routine Extremities Exam Present: no edema, non tender - Routine Back/Spine/Pelvis Exam Back/Spine: Present: full ROM - Routine Musculoskeletal Exam Musculoskeletal: Present: moving extremities well - Routine Skin Exam Present: intact, dry, warm - Routine Neurological Exam Present: alert, moving all extremities. Absent: oriented X3 - Routine Psychiatric Exam Present: cooperative. Absent: normal affect, normal thought process Results - Labs CBC & Chem 7: 04/14/18 08:53 04/15/18 04:28 Microbiology Results: Microbiology 04/06/18 08:20 Peripheral/Iv Start Blood Culture - Final No Growth After 5 Days 04/06/18 08:03 Peripheral/Iv Start Blood Culture - Final No Growth After 5 Days 04/06/18 10:29 Urine, Cath Straight Urine Culture - Final Escherichia coli Assessment and Plan (1) Acute aspiration pneumonia Current visit: Yes Status: Acute (2) Acute respiratory failure with hypoxia Current visit: Yes Status: Acute Assessment and Plan: Impression: Acute aspiration event with syncope/collapse Acute respiratory failure with hypoxia, hypercapnia, respiratory acidosis Aspiration pneumonia/pneumonitis-completed 8 days of clindamycin Possible fluid overload. Hypernatremia - resolved H/o breast cancer with radiation/surgical changes to L breast Parkinson's with memory changes Known history of dysphagia DM2 Depression/JASMINA/schizoaffective d/o E.Coli UTI, Pansensitive - completed 5 days of ceftriaxone Thrush 04/12 Plan: 04/15/18 She continues to require O2, but is slowly improving. Remains afebrile off abx. Continue altered diet- suspect aspiration with remain a recurrent issue given chronic memory changes and long hx of aspiration. DNR to be petitioned at court towards the end of March. Change Lasix back to PO. Potential return to [place] today or tomorrow. Will need close follow up. Get CXR now for stability prior to DC. DC planning. Will D/W manager learning DVT Prophylaxis: Lovenox GI Prophylaxis: Omeprazole Resuscitation Status: Full Code - Physician Narrative Narrative: Date: 04/15/18 Time: 1243 Hospital Course Summary Disclaimer: The visit summary below is not to be considered part of the above Progress Note. Hospital Course: Impression: Acute aspiration event with syncope/collapse Acute respiratory failure with hypoxia Aspiration pneumonia/pneumonitis Possible fluid overload. Parkinson's with memory changes Known history of dysphagia DM2 Depression/JASMINA/BPAD 04/05/18 Monitor on oxygen overnight. Antibiotics for coverage of likely aspiration event- Clindamycin. Allergy to both PCN and Cephalosporins. O2, PRN suction. Ask ST to see patient for further evaluation. NPO until ST sees pt. May take meds with sips. Add LMWH for DVT PX. Add PPI due to aspiration event. Lasix x 1 upon admission. Full code per [place] paperwork. 04/06/18 Hypoxia, somnolence - ABG ordered, showing respiratory acidosis (pH 7.29, PCO2 62, PO2 64 on 10L) - BiPAP trial ordered. CXR reviewed and compared to previous: left sided infiltrate more prominent. Hypotension overnight requiring 500 mL fluid bolus - BP low-normal currently and IVF are not infusing. SIRS criteria noted: Fever (100.7), tachypnea, leukocytosis - sepsis w/u ordered. Lactate and procalcitonin were normal. BC drawn. Pyuria present-ceftriaxone initiated pending results of urine culture. Cont clinda for aspiration. Continue suctioning, breathing treatments, speech therapy. Soft tissue ultrasound ordered to delineate firmness to left chest wall. 04/07/18 Currently on 6L per [place] with 95% sats. Will try weaning. Speech has advanced her diet to pureed with thin liquids. Day #2 of Rocephin and Day #3 of clindamycin. UA was performed yesterday as part of sepsis w-u. + nitrates and leuks. Urine culture is pending. Leukocytosis is improving. Consider resuming her home Lasix tomorrow if BP remains stable. Labs stable. Consider DC IVF's later today if she is taking po well. Recommend OP f-u of L breast scarring vs mass. 04/08/18 Continue BiPAP while at rest, 5 L of oxygen, otherwise. Respiratory status is improving. Dysphagia, also improving with speech therapy. Continue clindamycin for aspiration, day #4. Cultures positive for Escherichia coli, pansensitive. Continue ceftriaxone, day #3. Weight is up about 3 kg compared to yesterday morning. Sodium level increased to 145. Renal function is stable. Change IVF to 1/2 NS & reduce rate to 50 ml/hr ; resume Lasix. Dr. Haines and Dr. Barraza working on court-appointed DNR order. 04/09/18 Continue BiPAP, O2. Resp status is concerning, but I suspect she is fluid overloaded. Weight is up quite a lot. I am going to start her on scheduled IV diuretics, oral potassium and monitor. Dysphagia/Aspiration- continue clindamycin for aspiration, day #5. EColi UTI and Asp Pneumonia- Ceftriaxone, D #4 Order daily weights. Repeat labs and CXR in AM for stability. Long history of aspiration events. Recurrence will certainly be a concern. 04/10/18 Patient has demonstrated excellent diuresis. Wt is down 5 kg overnight. Extremity edema is better. Labs are tolerating well. Continue current, and potentially will need to decrease Lasix dosing tomorrow. Concern for possible worsening aspiration- MBS today- pureed is potentially safest. Continue Clindamycin (d#6) for now to cover both Aspiration; has completed 5 days of ceftriaxone for UTI, discontinue. BiPAP, O2 support. Amanda pulmicort. 04/11/18 Continue clindamycin for aspiration pneumonia, day #7. Modified barium swallow study shows tracheal penetration with thin consistency barium and delayed tracheal penetration with pudding consistency. There is no aspiration visualized. Respiratory status is essentially unchanged from yesterday. Continue diuresis with Lasix 40 mg IV twice a day. Her weight has increased 1 kg from yesterday. Consider adding Diamox to reduce contraction alkalosis. Renal function and electrolytes are overall stable. 04/12/18 Discontinue clindamycin for aspiration pneumonia after 8 days of treatment. CO2 rising, 33-->35-->37 on Lasix 40 mg IV BID. Good UO & weight trending down. Check CXR. May be able to reduce diuresis if effusions have improved. Tolerated overnight without use of BiPAP but oxygen had to be increased to 10L d /t sats in the 80s while on 6L. Start nystatin for thrush 04/13/18 CO2 rising, 33-->35-->37-->39 on Lasix 40 mg IV BID. Good UO & weight trending down. Give Diamox 500 mg x1. CXR personally reviewed - improving effusions but still with severe b/l consolidation. Prior CXR in 2017 also showed increased markings on the left questionably fibrosis. Will reduce frequency of Lasix to 40 mg IV daily. Negative fluid balance for the last several days. DC Rosales. Has not been on BiPAP since yesterday afternoon, when she may have aspirated after noon meal. Currently on 8L of O2. Remains afebrile, WBC normal. 04/14/18 Weight continues to trend down. Rosales catheter was removed yesterday. Currently on Lasix 40 mg IV. Check BMP. May consider converting her to by mouth Lasix. Remains afebrile. Check CBC to monitor white count. Has been off of antibiotics for 2 days. Continues on nystatin for thrush. 04/15/18 She continues to require O2, but is slowly improving. Remains afebrile off abx. Continue altered diet- suspect aspiration with remain a recurrent issue given chronic memory changes and long hx of aspiration. DNR to be petitioned at court towards the end of March. Change Lasix back to PO. Potential return to [place] today or tomorrow. Will need close follow up. Get CXR now for stability prior to DC. DC planning.
[2018-04-15 13:05] VITALS: O2SAT 94
--- NOTE | 2018-04-15 13:58 | XRay Report ---
Indication: Respiratory failure PROCEDURE: XR chest 1V: Encounter: Initial Comparison: April 12, 2018 Findings: Aeration of the lungs is stable with patchy bilateral infiltrates and small effusions. No pneumothorax. Heart size and mediastinal contours are stable. Pulmonary vascularity is indistinct. Impression: Stable appearance of the chest. .
--- NOTE | 2018-04-15 14:29 | Discharge Summary ---
Discharge Information Date of admission: 04/05/18 15:05 Anticipated date of discharge: 04/15/18 Attending Physician: Mena Islas MD Primary care physician: Karena Haines MD Consults: 04/06/18 16:43 Doctor [Physician Consult] [CONS] Routine Consulting Provider: [facility] Reason For Exam: continuity of care Ordering Provider has Notified Manager Access: Yes 04/09/18 10:54 Physician Consult [CONS] Routine Consulting Provider: [facility] Reason For Exam: PLACEMENT Ordering Provider has Notified Manager Access: Yes 04/12/18 13:37 Case Management Consult [Case Management Consult] [CONS] Routine Reason For Exam: OVERNIGHT OXIMETRY - Discharge Diagnosis (1) Acute aspiration pneumonia Status: Acute (2) Acute respiratory failure with hypoxia Status: Acute Impression: Acute aspiration event with syncope/collapse Acute respiratory failure with hypoxia, hypercapnia, respiratory acidosis Aspiration pneumonia/pneumonitis-completed 8 days of clindamycin Possible fluid overload. Hypernatremia - resolved H/o breast cancer with radiation/surgical changes to L breast Parkinson's with memory changes Known history of dysphagia DM2 Depression/JASMINA/schizoaffective d/o E.Coli UTI, Pansensitive - completed 5 days of ceftriaxone Thrush 04/12 - Procedures Procedures: Modified Barium Swallow Impression: 1. Tracheal penetration with thin consistency barium. 2. Delayed tracheal penetration with pudding consistency. 3. No aspiration is visualized. Please see the speech pathology report for additional details and recommendations. Fluoroscopy dose: 1.20 rad Andi Don RPA/FAROOQ performed this under my direct supervision. - Laboratory Labs: 04/14/18 08:53 04/15/18 04:28 - Microbiology Microbiology 04/06/18 08:20 Peripheral/Iv Start Blood Culture - Final No Growth After 5 Days 04/06/18 08:03 Peripheral/Iv Start Blood Culture - Final No Growth After 5 Days 04/06/18 10:29 Urine, Cath Straight Urine Culture - Final Escherichia coli - Radiology Radiology: Left Breast Sono IMPRESSION: INCOMPLETE:NEED ADDITIONAL IMAGING EVALUATION - FOLLOW-UP RECOMMENDED There is no mass seen in the left breast at the position 12 o'clock at the site of palpable concern. The palpable mass in the left breast needs additional evaluation. Mammographic evaluation is recommended prior to final assessment. The patient has been or will be contacted. Indication: Respiratory failure PROCEDURE: XR chest 1V: Encounter: Initial Comparison: April 12, 2018 Findings: Aeration of the lungs is stable with patchy bilateral infiltrates and small effusions. No pneumothorax. Heart size and mediastinal contours are stable. Pulmonary vascularity is indistinct. Impression: Stable appearance of the chest. . History of Present Illness HPI: Chapis is seen today in the ED due to an acute aspiration event. She had apparently choked while eating lunch and became non-responsive. When EMS arrived , they were able to revive her. Her sats upon EMS arrival were in the 50's. She did not suffer a cardio-pulmonary arrest, and was able to be aroused at the scene. She was brought into the ER for further assessment. In the ER, she has continued to require O2 in the 5-7L range. She was noted to have bilateral infiltrates on CXR and possible pulmonary edema as well. Leukocytosis is noted on lab results. She is being admitted for further evaluation and treatment. She is a resident at [facility]. Upon review of her record, she was noted to have aspiration concerns in 2015 and was recommended that she be on a pureed diet with regular liquids. Chapis is able to tell me that she chokes quite a bit when she eats. She is a fairly poor historian, but is alert and able to converse to some degree. Objective Vital signs: Temperature 97.3 F 04/15/18 11:22 Pulse Rate 85 04/15/18 11:22 Respiratory Rate 20 04/15/18 11:22 Blood Pressure 119/55 04/15/18 11:22 Pulse Oximetry 94 04/15/18 13:04 Rhythm: Normal Sinus Rhythm Height/Weight/BMI: Height 1.55 m Weight 93 kg Body Mass Index 39.6 Comments: - Constitutional Present: no acute distress, obese, cooperative - Routine HEENT Exam Head: Present: normocephalic, atraumatic Eye: Present: EOMI, PERRL ENT: Present: mucous membranes moist - Routine Respiratory Exam Present: decreased breath sounds, wheezes (Faint wheezes left base, but overall improved. ), diminished air movement - Routine Cardiovascular Exam Present: RRR, S1, S2, no murmur - Routine Abdominal Exam Present: soft, normoactive bowel sounds, non distended, non tender - Routine Extremities Exam Present: no edema, non tender - Routine Back/Spine/Pelvis Exam Back/Spine: Present: full ROM - Routine Musculoskeletal Exam Musculoskeletal: Present: moving extremities well - Routine Skin Exam Present: intact, dry, warm - Routine Neurological Exam Present: alert, moving all extremities. Absent: oriented X3 - Routine Psychiatric Exam Present: cooperative. Absent: normal affect, normal thought process Hospital Course This is a general summary of the patient's hospital course. For more details refer to the complete medical record. 04/05/18 Monitor on oxygen overnight. Antibiotics for coverage of likely aspiration event- Clindamycin. Allergy to both PCN and Cephalosporins. O2, PRN suction. Ask ST to see patient for further evaluation. NPO until ST sees pt. May take meds with sips. Add LMWH for DVT PX. Add PPI due to aspiration event. Lasix x 1 upon admission. Full code per [place] paperwork. 04/06/18 Hypoxia, somnolence - ABG ordered, showing respiratory acidosis (pH 7.29, PCO2 62, PO2 64 on 10L) - BiPAP trial ordered. CXR reviewed and compared to previous: left sided infiltrate more prominent. Hypotension overnight requiring 500 mL fluid bolus - BP low-normal currently and IVF are not infusing. SIRS criteria noted: Fever (100.7), tachypnea, leukocytosis - sepsis w/u ordered. Lactate and procalcitonin were normal. BC drawn. Pyuria present-ceftriaxone initiated pending results of urine culture. Cont clinda for aspiration. Continue suctioning, breathing treatments, speech therapy. Soft tissue ultrasound ordered to delineate firmness to left chest wall. 04/07/18 Currently on 6L per NC with 95% sats. Will try weaning. Speech has advanced her diet to pureed with thin liquids. Day #2 of Rocephin and Day #3 of clindamycin. UA was performed yesterday as part of sepsis w-u. + nitrates and leuks. Urine culture is pending. Leukocytosis is improving. Consider resuming her home Lasix tomorrow if BP remains stable. Labs stable. Consider DC IVF's later today if she is taking po well. Recommend OP f-u of L breast scarring vs mass. 04/08/18 Continue BiPAP while at rest, 5 L of oxygen, otherwise. Respiratory status is improving. Dysphagia, also improving with speech therapy. Continue clindamycin for aspiration, day #4. Cultures positive for Escherichia coli, pansensitive. Continue ceftriaxone, day #3. Weight is up about 3 kg compared to yesterday morning. Sodium level increased to 145. Renal function is stable. Change IVF to 1/2 NS & reduce rate to 50 ml/hr ; resume Lasix. Dr. Haines and Dr. Barraza working on court-appointed DNR order. 04/09/18 Continue BiPAP, O2. Resp status is concerning, but I suspect she is fluid overloaded. Weight is up quite a lot. I am going to start her on scheduled IV diuretics, oral potassium and monitor. Dysphagia/Aspiration- continue clindamycin for aspiration, day #5. EColi UTI and Asp Pneumonia- Ceftriaxone, D #4 Order daily weights. Repeat labs and CXR in AM for stability. Long history of aspiration events. Recurrence will certainly be a concern. 04/10/18 Patient has demonstrated excellent diuresis. Wt is down 5 kg overnight. Extremity edema is better. Labs are tolerating well. Continue current, and potentially will need to decrease Lasix dosing tomorrow. Concern for possible worsening aspiration- MBS today- pureed is potentially safest. Continue Clindamycin (d#6) for now to cover both Aspiration; has completed 5 days of ceftriaxone for UTI, discontinue. BiPAP, O2 support. Duoneb, pulmicort. 04/11/18 Continue clindamycin for aspiration pneumonia, day #7. Modified barium swallow study shows tracheal penetration with thin consistency barium and delayed tracheal penetration with pudding consistency. There is no aspiration visualized. Respiratory status is essentially unchanged from yesterday. Continue diuresis with Lasix 40 mg IV twice a day. Her weight has increased 1 kg from yesterday. Consider adding Diamox to reduce contraction alkalosis. Renal function and electrolytes are overall stable. 04/12/18 Discontinue clindamycin for aspiration pneumonia after 8 days of treatment. CO2 rising, 33-->35-->37 on Lasix 40 mg IV BID. Good UO & weight trending down. Check CXR. May be able to reduce diuresis if effusions have improved. Tolerated overnight without use of BiPAP but oxygen had to be increased to 10L d /t sats in the 80s while on 6L. Start nystatin for thrush 04/13/18 CO2 rising, 33-->35-->37-->39 on Lasix 40 mg IV BID. Good UO & weight trending down. Give Diamox 500 mg x1. CXR personally reviewed - improving effusions but still with severe b/l consolidation. Prior CXR in 2017 also showed increased markings on the left questionably fibrosis. Will reduce frequency of Lasix to 40 mg IV daily. Negative fluid balance for the last several days. DC Rosales. Has not been on BiPAP since yesterday afternoon, when she may have aspirated after noon meal. Currently on 8L of O2. Remains afebrile, WBC normal. 04/14/18 Weight continues to trend down. Rosales catheter was removed yesterday. Currently on Lasix 40 mg IV. Check BMP. May consider converting her to by mouth Lasix. Remains afebrile. Check CBC to monitor white count. Has been off of antibiotics for 2 days. Continues on nystatin for thrush. 04/15/18 She continues to require O2, but is slowly improving. Remains afebrile off abx. Continue altered diet- suspect aspiration with remain a recurrent issue given chronic memory changes and long hx of aspiration. DNR to be petitioned at court towards the end of March. Change Lasix back to PO. Potential return to NH today or tomorrow. Will need close follow up. Get CXR now for stability prior to DC. DC planning. Documented By: Debbie Tapia APRN 04/15/18 1243 Signed By: <Electronically signed by Debbie Tapia APRN> 04/15/18 1250 Hospital course: Impression: Acute aspiration event with syncope/collapse Acute respiratory failure with hypoxia Aspiration pneumonia/pneumonitis Possible fluid overload. Parkinson's with memory changes Known history of dysphagia DM2 Depression/JASMINA/BPAD 04/05/18 Monitor on oxygen overnight. Antibiotics for coverage of likely aspiration event- Clindamycin. Allergy to both PCN and Cephalosporins. O2, PRN suction. Ask ST to see patient for further evaluation. NPO until ST sees pt. May take meds with sips. Add LMWH for DVT PX. Add PPI due to aspiration event. Lasix x 1 upon admission. Full code per [place] paperwork. 04/06/18 Hypoxia, somnolence - ABG ordered, showing respiratory acidosis (pH 7.29, PCO2 62, PO2 64 on 10L) - BiPAP trial ordered. CXR reviewed and compared to previous: left sided infiltrate more prominent. Hypotension overnight requiring 500 mL fluid bolus - BP low-normal currently and IVF are not infusing. SIRS criteria noted: Fever (100.7), tachypnea, leukocytosis - sepsis w/u ordered. Lactate and procalcitonin were normal. BC drawn. Pyuria present-ceftriaxone initiated pending results of urine culture. Cont clinda for aspiration. Continue suctioning, breathing treatments, speech therapy. Soft tissue ultrasound ordered to delineate firmness to left chest wall. 04/07/18 Currently on 6L per NC with 95% sats. Will try weaning. Speech has advanced her diet to pureed with thin liquids. Day #2 of Rocephin and Day #3 of clindamycin. UA was performed yesterday as part of sepsis w-u. + nitrates and leuks. Urine culture is pending. Leukocytosis is improving. Consider resuming her home Lasix tomorrow if BP remains stable. Labs stable. Consider DC IVF's later today if she is taking po well. Recommend OP f-u of L breast scarring vs mass. 04/08/18 Continue BiPAP while at rest, 5 L of oxygen, otherwise. Respiratory status is improving. Dysphagia, also improving with speech therapy. Continue clindamycin for aspiration, day #4. Cultures positive for Escherichia coli, pansensitive. Continue ceftriaxone, day #3. Weight is up about 3 kg compared to yesterday morning. Sodium level increased to 145. Renal function is stable. Change IVF to 1/2 NS & reduce rate to 50 ml/hr ; resume Lasix. Dr. Haines and Dr. Barraza working on court-appointed DNR order. 04/09/18 Continue BiPAP, O2. Resp status is concerning, but I suspect she is fluid overloaded. Weight is up quite a lot. I am going to start her on scheduled IV diuretics, oral potassium and monitor. Dysphagia/Aspiration- continue clindamycin for aspiration, day #5. EColi UTI and Asp Pneumonia- Ceftriaxone, D #4 Order daily weights. Repeat labs and CXR in AM for stability. Long history of aspiration events. Recurrence will certainly be a concern. 04/10/18 Patient has demonstrated excellent diuresis. Wt is down 5 kg overnight. Extremity edema is better. Labs are tolerating well. Continue current, and potentially will need to decrease Lasix dosing tomorrow. Concern for possible worsening aspiration- MBS today- pureed is potentially safest. Continue Clindamycin (d#6) for now to cover both Aspiration; has completed 5 days of ceftriaxone for UTI, discontinue. BiPAP, O2 support. Duoneb, pulmicort. 04/11/18 Continue clindamycin for aspiration pneumonia, day #7. Modified barium swallow study shows tracheal penetration with thin consistency barium and delayed tracheal penetration with pudding consistency. There is no aspiration visualized. Respiratory status is essentially unchanged from yesterday. Continue diuresis with Lasix 40 mg IV twice a day. Her weight has increased 1 kg from yesterday. Consider adding Diamox to reduce contraction alkalosis. Renal function and electrolytes are overall stable. 04/12/18 Discontinue clindamycin for aspiration pneumonia after 8 days of treatment. CO2 rising, 33-->35-->37 on Lasix 40 mg IV BID. Good UO & weight trending down. Check CXR. May be able to reduce diuresis if effusions have improved. Tolerated overnight without use of BiPAP but oxygen had to be increased to 10L d /t sats in the 80s while on 6L. Start nystatin for thrush 04/13/18 CO2 rising, 33-->35-->37-->39 on Lasix 40 mg IV BID. Good UO & weight trending down. Give Diamox 500 mg x1. CXR personally reviewed - improving effusions but still with severe b/l consolidation. Prior CXR in 2017 also showed increased markings on the left questionably fibrosis. Will reduce frequency of Lasix to 40 mg IV daily. Negative fluid balance for the last several days. JAN Rosales. Has not been on BiPAP since yesterday afternoon, when she may have aspirated after noon meal. Currently on 8L of O2. Remains afebrile, WBC normal. 04/14/18 Weight continues to trend down. Rosales catheter was removed yesterday. Currently on Lasix 40 mg IV. Check BMP. May consider converting her to by mouth Lasix. Remains afebrile. Check CBC to monitor white count. Has been off of antibiotics for 2 days. Continues on nystatin for thrush. 04/15/18 She continues to require O2, but is slowly improving. Remains afebrile off abx. Continue altered diet- suspect aspiration with remain a recurrent issue given chronic memory changes and long hx of aspiration. DNR to be petitioned at court towards the end of March. Change Lasix back to PO. Potential return to NH today or tomorrow. Will need close follow up. Get CXR now for stability prior to DC. DC planning. DC with Case Management- PT evaluation demonstrates need for SNU. Ok to transfer to SNU today. D/W Dr. Islas. Time spent with patient: greater than 35 minutes Resuscitation Status: Full Code (DNR pending per court petition. Remains full code) Discharge Plan - Discharge Disposition Discharge Date: 04/15/18 Disposition: 03 To SNU Not [facility] (SNF) *Condition: Stable Reason For Visit (Visit label in EMR): Aspiration - Discharge Medications *Discharge Medications: New Nystatin Oral Liq. [Mycostatin] 5 ml PO QID 5 Days udc Potassium Chloride [K-DUR 20 mEq Tablet] 20 meq PO WB tab Albuterol Neb (0.083%) [Proventil Neb (0.083%)] 2.5 mg AEROSOL Q4H PRN #60 vial PRN Reason: Wheezing Continue Quetiapine [Seroquel] 100 mg PO HS RisperiDONE LA [RisperDAL Consta] 0.5 ml IM Q14D Levothyroxine Tab [Synthroid] 150 mcg PO ACB Citalopram Hydrobromide [Celexa] 20 mg PO DAILY Furosemide [Lasix] 40 mg PO DAILY Multivitamin [One Daily] 1 each PO DAILY Docusate Sodium 100 mg PO DAILY Acetaminophen 325 mg PO Q4HR #0 Omeprazole 20 mg PO DAILY Milk of Magnesia [Mom] 30 ml PO PRN - Discharge Packet/Instructions *Diet: ADA diet. 2000 calorie diet. Pureed diet. *Activity: As tolerated. Up with assist. Fall precautions. *Pain Management/Treatment: Tylenol as needed for pain *Wound Care: N/A *Expected Signs/Symptoms: Mild cough. Occasional wheezing. *Notify Physician if: Decline in vital signs; Temp over 101. Increasing O2 requirements or any other concerns. *During Business Hours Contact: Attending physician at facility *After Business Hours Contact: scallop raker. *Pending Lab/Results: Follow up w/Provider Outpatient Orders: Administer Oxygen Location: None Selected - Referrals/Follow Up *Referrals/Follow Up: Karena Haines MD [Primary Care Provider] - - Patient Handouts Patient Handouts: Aspiration Precautions (GEN) - Dismissal Complete Discharge Instructions are:: Complete Physician Narrative - Narrative Attestation Narrative: Date: 04/15/18 Time: 151 Pt was admitted d/t aspiration event and completed abx tx for aspiration and UTI. Pt also was found to have some pulm edema and BNP was elevated and so pt was diuresed. Echo result pending, no previous hx of CHF. Pt did well and O2 requirements decreased. Pt was doing well on day of discharge and lungs were CTAB. Follow up: Echo findings
--- NOTE | 2018-04-15 15:01 | Extended Care Facility Orders ---
Admission Orders Admit to:: [facility] Allergies/Adverse Reactions: Allergies Penicillins Allergy (Mild, Verified 04/05/18 13:49) RASH cefuroxime Allergy (Unknown, Verified 04/05/18 13:49) Admitting Diagnosis: Aspiration Admitting Physician: Mena Islas MD Attending Physician: Mena Islas MD Code Status: Full Code Anticiapted Length of Stay: 30 days or less Rehab Potential: good Rehab Prognosis: good Diet: 04/07/18 Lunch Consistent Carbohydrate Diet [DIET] Calorie Level: 2000 Food Consistency: PUREE May use Facility Protocol or Standing Orders: Yes May have flu vaccine: Yes Evaluations/Treatment: Speech, PT, OT [facility] Certification: I certify that SNF services are required to be given on an Inpatient basis because of the patients need for fci care on a continuing basis for the condition(s) for which he/she received inpatient hospital services prior to his/her transfer to the SNF. SNF inpatient care is necessary for the following reasons - Additional Information In Event of Arrest: Start CPR,call 911,send patient to the ER Referrals: Karena Haines MD [Primary Care Provider] -
[2018-04-15 18:54] VITALS: BMI 38.7
--- NOTE | 2018-04-18 19:50 | Echocardiogram ---
DATE 04/15/2018 INDICATION Pulmonary edema. TECHNICAL QUALITY: Technically fair diagnostic study was obtained. FINDINGS 1. CARDIAC CHAMBERS. Left atrium appears enlarged as it is elongated. The transverse diameter of 3.6 cm remains normal. Right ventricle appears mildly dilated. Other cardiac chambers appear normal in size. The aortic root diameter is normal. 2. LV FUNCTION. Wall thickness is normal. Wall motion analysis is normal. Systolic function is normal. EF is estimated at 65%. Diastolic function assessment shows equalization of E/A wave. 3. VALVES. Mitral valve exhibits moderate annular calcification with moderate sclerosis extending to the anterior leaflet. Valve opening appears to be restricted up to a moderate degree. Tricuspid annular calcification is present. Leaflet structure and motion appear unremarkable. Aortic valve leaflets as seen on limited view appear to be normal in structure for age with expected mild sclerosis; excursion appears preserved. 4. DOPPLER. Analysis reveals mild mitral regurgitation, moderate mitral stenosis with a maximum pressure gradient of 12 mmHg, mean pressure gradient of 6 mmHg. Peak flow velocity of 1.7 meter/second. Aortic valve study shows mean gradient of only 6 mmHg with normal aortic valve area of 2.27 cm2. Mild tricuspid regurgitation is present with systolic PA pressure estimated at 34 mmHg. Central venous pressure is normal. Mild pulmonic insufficiency is present. No evidence of pericardial effusion, intracardiac masses, thrombi, vegetations or shunts. IMPRESSION 1. At least moderate mitral annular calcification. 2. Moderate mitral stenosis. 3. Mild mitral regurgitation. 4. Tricuspid annular calcification. 5. Mild tricuspid regurgitation. 6. Left atrial enlargement. 7. Normal LV size and systolic function. 8. Mild RV enlargement with preserved contractility. 9. Normal central venous pressure. 10. High normal systolic PA pressure estimated at 34 mmHg. 11. Small amount of free peritoneal fluid is noted adjacent to the liver. MTDD
== END 2018-04-15 16:30 | DRG 177 ==
LOC: ED 13:34 → MED 13:34 → SUATTDRO 15:05 → MED 15:45
PROVIDERS: ADMIT Internal Medicine; ATTEND Internal Medicine

== ENCOUNTER 2018-07-04 14:22 | Inpatient (IN) ==
[2018-07-04] MEDS ORDERED: ALBUTEROL/IPRATROPIUM 2.5mg-0.5mg/3ml NEB AEROSOL ONE (14:37)
--- NOTE | 2018-07-04 14:37 | Emergency Department Report ---
General Adult HPI - General Chief complaint: Shortness of Breath/Dyspnea Stated complaint: diff breathing Time Seen by Provider: 07/04/18 14:36 Source: patient, EMS Mode of arrival: EMS Limitations: no limitations - History of Present Illness HPI narrative: 82 F presents to the ED with the chief complaint of shortness of breath. Patient is currently being treated for aspiration pneumonia with a 7 day course of Levaquin. Patient states that her symptoms have been present since yesterday. Patient has chronic discomfort in her left breast which is secondary to cancer. Patient also notes wheezing after aspirating on a piece of watermelon yesterday. Patient states that she does not feel any worse than she did yesterday. She was at [facility] when her symptoms began 1 day ago. She was seen and evaluated in the emergency department and discharged home with Levaquin one day ago. No other complaints or associated symptoms. She returns with increased wheezing. - Related Data Home Medications Medication Instructions Recorded Confirmed Acetaminophen 325 mg PO Q4HR #0 08/30/15 07/04/18 Citalopram Hydrobromide [Celexa] 20 mg PO DAILY 04/05/18 07/04/18 Docusate Sodium 100 mg PO DAILY PRN 04/05/18 07/04/18 Furosemide [Lasix] 40 mg PO DAILY 04/05/18 07/04/18 Milk of Magnesia [Mom] 30 ml PO PRN PRN 04/05/18 07/04/18 Multivitamin [One Daily] 1 tab PO DAILY 04/05/18 07/04/18 Omeprazole 20 mg PO DAILY PRN 04/05/18 07/04/18 Atorvastatin [Lipitor] 10 mg PO HS 07/03/18 07/04/18 Benztropine [Cogentin] 1 mg PO BID PRN 07/03/18 07/04/18 Levothyroxine Tab [Synthroid] 125 mcg PO ACB 07/03/18 07/04/18 Loperamide HCl [Imodium A-D] 4 mg PO TID PRN 07/03/18 07/04/18 Potassium Chloride 20 meq PO DAILY 07/03/18 07/04/18 Quetiapine Fumarate [Seroquel] 150 mg PO HS 07/03/18 07/04/18 Quetiapine [Seroquel] 50 mg PO DAILY 07/03/18 07/04/18 RisperiDONE LA [RisperDAL Consta] 25 mg IM Q2WKS 07/03/18 07/04/18 Levofloxacin [Levaquin] 500 g PO DAILY 07/04/18 07/04/18 Allergies Allergy/AdvReac Type Severity Reaction Status Date / Time Penicillins Allergy Mild RASH Verified 07/04/18 14:25 cefuroxime Allergy Unknown Verified 07/04/18 14:25 Review of Systems Constitutional: Denies: fever, chills Eyes: Denies: eye pain, vision change ENT: Denies: ear pain, throat pain Cardiovascular: Denies: chest pain, palpitations Respiratory: Reports: cough, dyspnea, wheezes. Denies: hemoptysis Gastrointestinal: Denies: abdominal pain, nausea, vomiting, diarrhea Genitourinary: Denies: urgency, dysuria Musculoskeletal: Denies: back pain, arthralgia Integumentary: Denies: erythema, rash Neurological: Denies: headache, numbness, paresthesias Psychiatric: Denies: anxiety, depression Endocrine: Denies: polydipsia, polyuria Hematological/Lymphatic: Denies: easy bruising, lymphadenopathy Allergic/Immunologic: Denies: facial swelling, urticaria PFSH Patient Stated Medical History Dementia Yes: WITH BEHAVIORS Parkinson's Disease Yes Dental Problems Yes: dentures Congestive Heart Failure Yes Hypertension Yes Other Cardiology Yes: LEFT VENTRICULAR FAILURE Chronic Obstructive Pulmonary Yes Disease (COPD) Diabetes Mellitus Type 2 Yes Hx Incontinence Yes Hx Urinary Tract Infection Yes Other Musculoskeletal Yes: REPEATED FALLS Bipolar Disorder Yes Depression Yes Schizophrenia Yes Other Behavioral Health Yes: MAJOR DEPRESSIVE DISORDER Medical History Updates: Hypercholesterolemia. Hypothyroidism. Dementia. Hypertension. COPD. DM2, Type 2. Schizoaffective DO. MDD/JASMINA. Parkinson's. Morbid obesity. Constipation. BrCA. CHF. BPAD. OA. UTI. Remote hx of S.I./ ECT Surgical History: Left partial mastectomy secondary to breast cancer. Carpal tunnel repair. Echo 08/2015: EF 69%, 2/4 diastolic dysfunction Family History: Reviewed and noncontributory - Social History Smoking status: Former smoker Substance use type: does not use Alcohol intake frequency: does not drink Housing: correction Current occupational status: retired Current residence: [facility] Physical Exam - Limitations Limitations: no limitations - General General appearance: alert, in no apparent distress - Normal Exams: Head:: Normocephalic without trauma Eyes:: Pupils are PERRLA w/ EOMI, No scleral icterus, irritation, or foreign bodies noted ENMT:: No facial trauma, nasal exudates, pharyngeal erythema, or exudates are noted Dental: No fractured, loose, or missing teeth noted Neck:: Full range of motion, without adenopathy, JVD, bruits or thyromegaly Chest/Respirations:: Clear all marin (bilateral end expiratory wheezes in all lung marin), with good airflow, and symmetry bilaterally Cardiovascular:: Regular rate and rhythm, without murmur or gallop, Pulses 2+ all extremities, capillary refill, <2 seconds all extremities Abdomen:: Bowel sounds positive, soft, non-tender, non-distended, no hepatosplenomegaly, masses or bruits noted Lymphatic:: No lymphadenopathy, or lymphedema noted Musculoskeletal:: No tenderness, or deformity noted, good range of motion, all extremities Integumentary:: No rashes, hives, or bruising noted, hair and nails, without abnormality Neurological:: Patient is alert, and oriented, cranial nerves, motor/sensory/ cerebellar, exams w/o gross deficits, to observation Psychiatric:: Patient exhibits, appropriate attention, emotion and affect Course Vital Signs Temperature 99.1 F 07/04/18 14:31 Pulse Rate 95 07/04/18 14:31 Respiratory Rate 28 H 07/04/18 14:31 Blood Pressure 128/57 07/04/18 14:31 Pulse Oximetry 92 07/04/18 14:31 Temperature 99.1 F 07/04/18 14:31 Pulse Rate 91 07/04/18 16:00 Respiratory Rate 28 H 07/04/18 14:51 Blood Pressure 130/66 07/04/18 16:00 Pulse Oximetry 96 07/04/18 16:15 Medical Decision Making - [facility] Narrative Medical decision making narrative: Labs/imaging were discussed in detail with the patient and questions are answered. Patient is given a DuoNeb treatment upon arrival to the emergency department with marked improvement in wheezing. Patient is given Solu-Medrol 125 mg IV times one. Blood cultures and lactic acid are drawn. Patient is given Levaquin 750 mg IV times one at 1732 when sepsis was considered. She was never hypoxic in the ED and her lactic acid was < 4.0. Patient was discussed with her primary care physician Dr. Haines who recommends admission to the hospital as the patient had a return visit today and she would like the patient to be admitted to the hospitalist service at this time. Patient is admitted to the service of the hospitalist Dr. Price after discussion with her. Hospitalist is in agreement with the current plan of management. No further orders. She is requiring increased oxygenation from her chronic 1L NC at 4L NC to maintain oxygen saturations in the mid 90s. Patient declined offered analgesic pain medication in the emergency department. Patient is given Levaquin 750 mg IV times one at 1732 when sepsis was considered. She was never hypotensive in the ED and her lactic acid was < 4.0. - Differential Diagnosis aspiration pneumonia, COPD, metabolic disorder, viral syndrome - Lab Data Result diagrams: 07/04/18 14:52 07/04/18 14:52 Lab Results 07/04/18 07/04/18 Range/Units 14:52 14:52 WBC 8.8 (4.5-11.0) T/MM3 RBC 4.01 (4.00-5.20) M/MM3 Hgb 12.0 (12-16) GM/DL Hct 37.7 (36-46) % MCV 94.0 (80-100) UM3 MCH 29.9 (26-34) UUG MCHC 31.8 (31-37) GM/DL RDW Std Deviation 48.2 (36.9-50.2) FL Plt Count 323 (130-400) T/MM3 MPV 9.7 (9.4-12.4) UM3 Immature Gran % (Auto) 0.5 (0.0-0.5) % Neut % (Auto) 66.9 H (33-66) % Lymph % (Auto) 20.3 L (23-45) % Morton % (Auto) 8.5 (0-9.0) % Eos % (Auto) 3.3 (0-4) % Baso % (Auto) 0.5 (0-2) % Neut # (Auto) 5.9 (1.8-7.7) T/MM3 Lymph # (Auto) 1.8 (1-4.8) T/MM3 Morton # (Auto) 0.8 (0-0.8) T/MM3 Eos # (Auto) 0.3 (0-0.5) T/MM3 Baso # (Auto) 0.0 (0-0.2) T/MM3 Abs Immat Gran (auto) 0.04 H (0.00-0.03) T/MM3 Turbidity < 20 (0-20) Sodium 143 (136-146) MEQ/L Potassium 4.6 (3.6-5) MEQ/L Chloride 97 L (98-107) MEQ/L Carbon Dioxide 34 H (22-30) MEQ/L Anion Gap 12 (5-15) meq/L BUN 15.0 (7-17) MG/DL Creatinine 1.0 (0.7-1.2) mg/dL Estimated Creat Clear 45 (>50) mL/min GFR Calculation 53 (>60) mL/min BUN/Creatinine Ratio 15 (6-26) RATIO Glucose 99 (65-110) MG/DL Calculated Osmolality 276 (261-280) MOSM/KG Calcium 9.5 (8.4-10.2) MG/DL Total Bilirubin 0.30 (0.20-1.30) MG/DL Icterus Index < 2 (0-7) AST 28 (14-36) U/L ALT 16 (1-35) U/L Alkaline Phosphatase 69 (38-126) U/L Troponin I 0.016 (0-0.12) ng/ml NT-Pro-B Natriuret Pep 1100 H (0-175) pg/mL Total Protein 7.6 (6.3-8.2) g/dL Albumin 4.2 (3.5-5.0) g/dL Globulin 3.4 (2.4-3.6) G/DL Albumin/Globulin Ratio 1.2 (1.1-2.2) RATIO Specimen Hemolysis < 15 (0-25) - Radiology Data CXR - Patchy bilateral infiltrates. Similar to comparison exam. - EKG Data EKG #1 EKG results narrative: Sinus rhythm. 88 bpm. No STEMI. Normal EKG. Disposition Clinical Impression: Aspiration pneumonia Qualifiers: Aspiration pneumonia type: unspecified Laterality: unspecified laterality Lung location: unspecified part of lung Qualified Code(s): J69.0 - Pneumonitis due to inhalation of food and vomit Disposition: 02 To [facility] Condition: Improved Time of Disposition: 17:10 (Admit. Dr. Price. ) - Seen By: physician
[2018-07-04] MEDS ORDERED: METHYLPREDNISOLONE SOD SUCC 125mg/2ml INJECTION IVP ONE (17:05)
[2018-07-04] MEDS: SALINE FLUSH 10ml SYRINGE IVF PRN (17:48)
[2018-07-04] MEDS: LEVOFLOXACIN PB 750 MG/150 ML BAG IV SCH (17:50)
[2018-07-04 18:11] VITALS: BMI 37.4
[2018-07-04] MEDS ORDERED: Bisacodyl EC TAB 5 MG TABLET PO PRN (18:26)
[2018-07-04] MEDS ORDERED: BISACODYL 10 MG SUPPOSITORY RECTALLY PRN (18:35)
[2018-07-04] MEDS ORDERED: METOCLOPRAMIDE 10mg/2ml INJECTION IVP PRN (18:35)
[2018-07-04] MEDS ORDERED: ONDANSETRON 4 MG/2 ML INJECTION IVP PRN (18:35)
[2018-07-04] MEDS ORDERED: SENNA + DOCUSATE TABLET PO PRN (18:35)
[2018-07-04] MEDS ORDERED: BENZTROPINE 1 MG TABLET PO PRN (18:40)
[2018-07-04] MEDS ORDERED: DOCUSATE SODIUM 100 MG CAPSULE PO PRN (18:40)
--- NOTE | 2018-07-04 18:55 | History & Physical Report ---
History of Present Illness Date: 07/04/18 Chief complaint: pt tells me she's here bc she can't swallow, presented with wheezing/SOA HPI: 82-year-old female patient who resides at [facility] with history of aspiration pneumonia, diabetes, hypertension, COPD, hypothyroidism, dyslipidemia, dementia, Parkinson's, morbid obesity, schizoaffective disorder as well as major depressive disorder and generalized anxiety disorder. She was brought into the emergency room yesterday after choking on a piece a watermelon. The half-way staff became quite concerned because of her history of aspiration pneumonia and brought her into the emergency room. She is on chronically 2 L of oxygen. She was increased to 4 L for adequate saturations. She was wheezing and was given breast Tory therapy. She was placed on levofloxacin orally for a seven-day course to treat aspiration pneumonia. She was dismissed back to the half-way from the ER, only requiring 1 L at the time of discharge. She was brought back to the emergency room today. Apparently she was wheezing more today than yesterday. The emergency room physician did call her primary care physician who advised putting her into the hospital for further care. The patient was subsequently admitted and obsessed status. When seen by me again she told me she was here because she couldn't swallow and that she's had this problem before. I reminded her that she supposed to be on a pured diet and she tells me she would not eat that. It's that food gets stuck in her throat. When I asked her if she was more short of breath today than yesterday she replied no. She did tell me she was short of breath yesterday and that's why she came to the emergency room. She does report a cough with white sputum production but states that's been going on for months. She denied any fevers or chills. She does tell me she gets lightheaded at times particularly when walking with her walker. She tells me she only walks a minimal amount with a walker. She takes her wheelchair to the dining room and back. She denies chest pain or pressure. She denied palpitations. She denied any abdominal pain, nausea or vomiting, Constipation or diarrhea. She denies dysuria Review of Systems All systems PM: 10-point ROS was reviewed, no additional remarkable complaints except (she is difficult to understand and does have some underlying dementia) Past Medical History Medical History Updates: Hypercholesterolemia. Hypothyroidism. Dementia. Hypertension. COPD. DM2, Type 2. Schizoaffective DO. MDD/JASMINA. Parkinson's. Morbid obesity. Constipation. BrCA. CHF. BPAD. OA. UTI, frequent. previous UTI with E. coli. prior history of aspiration. Remote hx of S.I./ ECT Surgical History: Left partial mastectomy secondary to breast cancer. right Carpal tunnel repair is two. 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 Echo 04/15/18: EF 65%, moderate mitral stenosis, mild mitral insufficiency, mild tricuspid insufficiency, left atrial enlargement Family History: Mom and dad both in their 80s. Dad had diabetes and cancer. Mom had heart problems and multiple other issues. Family History: Other (contributory at this age) - Social History Smoking status: Former smoker (patient smoked when she was a teenager only) Substance use type: does not use Alcohol intake frequency: does not drink Housing: half-way Current residence: Detention Medications Home Medications Medication Instructions Recorded Confirmed Type Acetaminophen 325 mg PO Q4HR #0 08/30/15 07/04/18 History Citalopram Hydrobromide [Celexa] 20 mg PO DAILY 04/05/18 07/04/18 History Docusate Sodium 100 mg PO DAILY PRN 04/05/18 07/04/18 History Furosemide [Lasix] 40 mg PO DAILY 04/05/18 07/04/18 History Milk of Magnesia [Mom] 30 ml PO PRN PRN 04/05/18 07/04/18 History Multivitamin [One Daily] 1 tab PO DAILY 04/05/18 07/04/18 History Omeprazole 20 mg PO DAILY PRN 04/05/18 07/04/18 History Atorvastatin [Lipitor] 10 mg PO HS 07/03/18 07/04/18 History Benztropine [Cogentin] 1 mg PO BID PRN 07/03/18 07/04/18 History Levothyroxine Tab [Synthroid] 125 mcg PO ACB 07/03/18 07/04/18 History Loperamide HCl [Imodium A-D] 4 mg PO TID PRN 07/03/18 07/04/18 History Potassium Chloride 20 meq PO DAILY 07/03/18 07/04/18 History Quetiapine Fumarate [Seroquel] 150 mg PO HS 07/03/18 07/04/18 History Quetiapine [Seroquel] 50 mg PO DAILY 07/03/18 07/04/18 History RisperiDONE LA [RisperDAL Consta] 25 mg IM Q2WKS 07/03/18 07/04/18 History Levofloxacin [Levaquin] 500 g PO DAILY 07/04/18 07/04/18 History Allergies Allergy/AdvReac Type Severity Reaction Status Date / Time Penicillins Allergy Mild RASH Verified 07/04/18 14:25 cefuroxime Allergy Unknown Verified 07/04/18 14:25 Exam Vital Signs: Temperature 98.4 F 07/04/18 17:39 Pulse Rate 85 07/04/18 18:00 Respiratory Rate 22 07/04/18 17:39 Blood Pressure 145/67 H 07/04/18 18:00 Pulse Oximetry 94 07/04/18 18:00 Height/Weight/BMI: Height 1.6 m Weight 95.9 kg Body Mass Index 37.4 Comments: Gen: alert and oriented. NAD. Pleasant and conversive but difficult to understand. She is not wearing any teeth. Skin: warm and dry, HEENT: NC/AT PERRL, EOMI, Sclera, lids and conjunctiva wnl. MMM. OP clear. Neck: short, thick, No JVD, Carotids 2+ without bruits. Lungs: diminished, without rales or rhonchi . Expiratory wheezes bilaterally CV: regular, soft murmur, no rubs or gallops. DP pulses 1+, radial pulses 2+, Abd: obese, soft. +BS, NT/ND. MS: MATOS Neuro: No focal deficit Psy: Appropriate mood and affect Results - Labs CBC & Chem 7: 07/04/18 14:52 07/04/18 14:52 Microbiology Results: Microbiology 07/04/18 17:29 Peripheral/Iv Start Blood Culture - Preliminary Culture Initiated - Results Pending 07/04/18 17:29 Peripheral/Iv Start Blood Culture - Preliminary Culture Initiated - Results Pending Assessment and Plan Assessment and Plan: Assessment and plan: possible aspiration -patient is wheezing -x-ray not formally read but cannot rule out and infiltrate on the left side from 07/03/18 -continue levofloxacin IV -respiratory therapy -inhalers -incentive spirometer -follow chest x-ray UTI -appears recurrent -E. coli -sensitive to Levaquin in March, current sensitivities still pending History of aspiration and known dysphagia -pured diet -speech consult -patient is to be in chair, upright with meals Diabetes -sliding scale insulin -carb consistent diet-pured -Accu checks Hypothyroidism -continue Synthroid History of hypertension -not currently on any antihypertensive medications other than Lasix Hypercholesterolemia -continue atorvastatin Dementia/Schizoaffective d/o, MDD/JASMINA -continue citalopram, Cogentin, and Seroquel Parkinson's -I do not see any Parkinson specific medications on board Constipation -continue good bowel regimen Gerd -continue PPI Prophylaxis -PPI and Lovenox - Physician Narrative Narrative: Date: 07/04/18 Time: 1844 Hospital Course Summary Disclaimer: The visit summary below is not to be considered part of the above Progress Note.
[2018-07-04] MEDS ORDERED: BUDESONIDE INH.SOLN 0.5mg/2ml NEB IPPB SCH (19:00)
[2018-07-04] MEDS ORDERED: ALBUTEROL/IPRATROPIUM 2.5mg-0.5mg/3ml NEB IPPB SCH (19:00)
[2018-07-04] MEDS ORDERED: ALBUTEROL/IPRATROPIUM 2.5mg-0.5mg/3ml NEB AEROSOL PRN (19:32)
[2018-07-04] MEDS: BUDESONIDE INH.SOLN 0.5mg/2ml NEB AEROSOL SCH (19:38)
[2018-07-04] MEDS: ALBUTEROL/IPRATROPIUM 2.5mg-0.5mg/3ml NEB AEROSOL SCH (19:38)
[2018-07-04] MEDS: ATORVASTATIN 10 MG TABLET PO SCH (20:41)
[2018-07-04] MEDS: ACETAMINOPHEN 325 MG TABLET PO SCH (20:42)
[2018-07-04] MEDS: ENOXAPARIN 40 MG/0.4 ML INJECTION SQ SCH (20:42)
[2018-07-04] MEDS: INSULIN ASPART 100unit/ml INJECTION SQ PRN (21:48)
[2018-07-04] MEDS: LR 1,000 ML IV SCH (23:03)
[2018-07-05] MEDS: LR 1,000 ML IV SCH ×2 (00:06→00:47)
[2018-07-05] MEDS: ACETAMINOPHEN 325 MG TABLET PO SCH ×7 (00:46→23:47)
[2018-07-05] MEDS: INSULIN ASPART 100unit/ml INJECTION SQ PRN ×4 (05:58→20:29)
[2018-07-05] MEDS: LEVOTHYROXINE 125 MCG TABLET PO SCH (05:58)
[2018-07-05] MEDS: QUETIAPINE 50 MG TABLET PO SCH ×3 (06:35→20:34)
[2018-07-05] MEDS ORDERED: MAGNESIUM SULFATE 1gm PREMIX 1 GM/100 ML BAG IV ONE (07:48)
[2018-07-05] MEDS: BUDESONIDE INH.SOLN 0.5mg/2ml NEB AEROSOL SCH ×2 (07:53→19:14)
[2018-07-05] MEDS: ALBUTEROL/IPRATROPIUM 2.5mg-0.5mg/3ml NEB AEROSOL SCH ×4 (07:54→19:14)
[2018-07-05] MEDS: ENOXAPARIN 40 MG/0.4 ML INJECTION SQ SCH (08:09)
[2018-07-05] MEDS: MULTI-VITAMIN + MINERAL TABLET PO SCH (08:10)
[2018-07-05] MEDS: POLYETHYL GLYCOL 3350 17gm PACKET PO SCH (08:11)
[2018-07-05] MEDS: CITALOPRAM 20 MG TABLET PO SCH (08:11)
--- NOTE | 2018-07-05 08:44 | Progress Note ---
- Date 07/05/18 Subjective: 82-year-old female patient who resides at [facility] with history of aspiration pneumonia, diabetes, hypertension, COPD, hypothyroidism, dyslipidemia, dementia, Parkinson's, morbid obesity, schizoaffective disorder as well as major depressive disorder and generalized anxiety disorder. She was brought into the emergency room yesterday after choking on a piece a watermelon. The shelter staff became quite concerned because of her history of aspiration pneumonia and brought her into the emergency room. She is on chronically 2 L of oxygen. She was increased to 4 L for adequate saturations. She was wheezing and was given respiratory therapy. She was placed on levofloxacin orally for a seven-day course to treat aspiration pneumonia. She was dismissed back to the shelter from the ER, only requiring 1 L at the time of discharge. She was brought back to the emergency room today. Apparently she was wheezing more today than yesterday. The emergency room physician did call her primary care physician who advised putting her into the hospital for further care. The patient was subsequently admitted and obsessed status. When seen by me again she told me she was here because she couldn't swallow and that she's had this problem before. I reminded her that she supposed to be on a pured diet and she tells me she would not eat that. It's that food gets stuck in her throat. When I asked her if she was more short of breath today than yesterday she replied no. She did tell me she was short of breath yesterday and that's why she came to the emergency room. She does report a cough with white sputum production but states that's been going on for months. She denied any fevers or chills. She does tell me she gets lightheaded at times particularly when walking with her walker. She tells me she only walks a minimal amount with a walker. She takes her wheelchair to the dining room and back. She denies chest pain or pressure. She denied palpitations. She denied any abdominal pain, nausea or vomiting, Constipation or diarrhea. She denies dysuria. When seen by me today, she is up in the recliner. She is just back from chest x- ray. Her chest x-ray looks like pulmonary edema. The official read is still pending. It does look worse than yesterday. Cannot rule out a left sided pneumonia. She does have an expiratory wheeze. She does have a loose cough but has not been able to expect rate anything. I instructed her on the in spirometer and asked her to use it throughout the day today. She demonstrated proper use but is only able to pull in about 500. She denies any fevers or chills. She denies any chest pain, pressure or tightness. She denies palpitations. She denies any nausea, vomiting, diarrhea or constipation. She is incontinent of urine. I don't see a bowel movement documented since admission, she is unsure. Objective Vital signs: Temperature 97.9 F 07/05/18 07:28 Pulse Rate 99 07/05/18 07:28 Respiratory Rate 22 07/05/18 07:54 Blood Pressure 145/79 H 07/05/18 07:28 Pulse Oximetry 95 07/05/18 07:54 Height/Weight/BMI: Height 1.6 m Weight 97.9 kg Body Mass Index 37.4 Comments: Gen: alert and oriented. NAD. Pleasant and conversive but difficult to understand. She is not wearing any teeth. Skin: warm and dry, HEENT: NC/AT PERRL, EOMI, Sclera, lids and conjunctiva wnl. MMM. OP clear. Neck: short, thick, No JVD, Carotids 2+ without bruits. Lungs: diminished, without rales or rhonchi . Expiratory wheezes bilaterally CV: regular, soft murmur, no rubs or gallops. DP pulses 1+, radial pulses 2+, trace edema Abd: obese, soft. +BS, NT/ND. MS: MATOS Neuro: No focal deficit Psy: Appropriate mood and affect Results - Labs CBC & Chem 7: 07/05/18 01:48 07/05/18 01:48 Microbiology Results: Microbiology 07/04/18 17:29 Peripheral/Iv Start Blood Culture - Preliminary Culture Initiated - Results Pending 07/04/18 17:29 Peripheral/Iv Start Blood Culture - Preliminary Culture Initiated - Results Pending Assessment and Plan Assessment and Plan: Assessment and plan: possible aspiration -patient is wheezing -x-ray not formally read but cannot rule out and infiltrate on the left side from 07/03/18 -continue levofloxacin IV -respiratory therapy -inhalers -incentive spirometer -follow chest x-ray -start back on steroids -IV diuretics today UTI -appears recurrent -E. coli -sensitive to Levaquin in March, current sensitivities still pending History of aspiration and known dysphagia -pured diet -speech consult -patient is to be in chair, upright with meals Diabetes -sliding scale insulin -carb consistent diet-pured -Accu checks Hypothyroidism -continue Synthroid History of hypertension -not currently on any antihypertensive medications other than Lasix -hold PO Lasix, will give IV Bumex today Hypercholesterolemia -continue atorvastatin Dementia/Schizoaffective d/o, MDD/JASMINA -continue citalopram, Cogentin, and Seroquel Parkinson's -I do not see any Parkinson specific medications on board Constipation -continue good bowel regimen Gerd -continue PPI Prophylaxis -PPI and Lovenox - Physician Narrative Narrative: Date: 07/05/18 Time: 0843 Hospital Course Summary Disclaimer: The visit summary below is not to be considered part of the above Progress Note.
[2018-07-05] MEDS ORDERED: FUROSEMIDE 40 MG TABLET PO SCH (09:00)
[2018-07-05] MEDS ORDERED: BUMETANIDE 2.5mg/10ml INJECTION IVP ONE (09:46)
[2018-07-05] MEDS: METHYLPREDNISOLONE SOD SUCC 40mg/ml INJECTION IVP SCH ×3 (10:31→20:35)
--- NOTE | 2018-07-05 13:36 | XRay Report ---
Indication: sob PROCEDURE: XR chest 1V: Encounter: Initial Comparison: July 03, 2018 Findings: Bilateral airspace infiltrates and groundglass opacities are unchanged. Probable trace effusions. No pneumothorax. Heart size and mediastinal contours are stable. Pulmonary vascularity is unchanged. Impression: Stable airspace disease. .
--- NOTE | 2018-07-05 14:36 | XRay Report ---
INDICATION: Aspiration PROCEDURE: CHEST 2-VIEWS UPRIGHT (PA & LAT) Encounter: Initial COMPARISON: July 04, 2018 FINDINGS: Patchy bilateral airspace infiltrates are similar. No obvious new or worsening airspace disease. Trace effusions. No pneumothorax. Heart size and mediastinal contours are stable. Pulmonary vascularity is grossly normal. Impression: Stable bilateral airspace opacities. .
[2018-07-05] MEDS: LEVOFLOXACIN PB 750 MG/150 ML BAG IV SCH (17:05)
[2018-07-05] MEDS: ATORVASTATIN 10 MG TABLET PO SCH (20:34)
[2018-07-05] MEDS: SALINE FLUSH 10ml SYRINGE IVF PRN (20:35)
[2018-07-06] MEDS: SALINE FLUSH 10ml SYRINGE IVF PRN (03:03)
[2018-07-06] MEDS: ACETAMINOPHEN 325 MG TABLET PO SCH ×5 (03:03→21:08)
[2018-07-06] MEDS: METHYLPREDNISOLONE SOD SUCC 40mg/ml INJECTION IVP SCH ×3 (03:03→15:51)
[2018-07-06] MEDS: LEVOTHYROXINE 125 MCG TABLET PO SCH (05:56)
[2018-07-06] MEDS: INSULIN ASPART 100unit/ml INJECTION SQ PRN ×4 (06:04→21:20)
[2018-07-06] MEDS ORDERED: OMEPRAZOLE 20 MG CAPSULE PO PRN (06:30)
[2018-07-06] MEDS: ALBUTEROL/IPRATROPIUM 2.5mg-0.5mg/3ml NEB AEROSOL SCH ×4 (06:58→21:23)
[2018-07-06] MEDS: BUDESONIDE INH.SOLN 0.5mg/2ml NEB AEROSOL SCH ×2 (06:58→21:24)
--- NOTE | 2018-07-06 09:15 | Progress Note ---
- Date 07/06/18 Subjective: Chapis is seen today in follow up. She is currently on 2 liters of oxygen by n/ c. She does not appear to be in any distress. She mumbles during examination and is difficult to understand. She does shake her head "no" when asked about pain. Decreased PO intake. No reported bowel movement since admission. Objective Vital signs: Temperature 97.1 F 07/06/18 07:00 Pulse Rate 96 07/06/18 07:47 Respiratory Rate 18 07/06/18 07:00 Blood Pressure 152/79 H 07/06/18 07:00 Pulse Oximetry 94 07/06/18 07:00 Height/Weight/BMI: Height 1.6 m Weight 94.5 kg Body Mass Index 37.4 - Constitutional Present: no acute distress, well nourished, well developed - Routine HEENT Exam Eye: Present: EOMI ENT: Present: mucous membranes moist, dentition normal - Routine Respiratory Exam Present: CTA bilaterally. Absent: wheezes - Routine Cardiovascular Exam Present: RRR, S1, S2. Absent: murmur - Routine Abdominal Exam Present: soft, normoactive bowel sounds, non distended. Absent: tenderness - Routine Extremities Exam Present: edema (trace bilateral lower ext), normal capillary refill - Routine Skin Exam Present: intact, dry, warm - Routine Neurological Exam Present: alert, CN II-XII intact - Routine Lymphatic Exam Lymphatic: Absent: adenopathy - Routine Psychiatric Exam Present: cooperative Results - Labs CBC & Chem 7: 07/05/18 01:48 07/06/18 03:53 Microbiology Results: Microbiology 07/04/18 17:29 Peripheral/Iv Start Blood Culture - Preliminary No Growth After 1 Day 07/04/18 17:29 Peripheral/Iv Start Blood Culture - Preliminary No Growth After 1 Day - ABG Interpretation ABG results: 07/05/18 21:25 ABG pH 7.460 H ABG pCO2 43 ABG pO2 71.6 L ABG HCO3 30.5 H ABG Total CO2 31.8 H ABG O2 Saturation 94.9 L ABG Base Excess 6.0 H Assessment and Plan Assessment and Plan: Assessment Possible aspiration UTI- E-coli- sensitive to Levaquin History of aspiration and known dysphagia Diabetes Hypothyroidism History of hypertension Hypercholesterolemia Dementia/Schizoaffective d/o, MDD/JASMINA Parkinson's Constipation Plan Chest Xray this morning- pending Continues on 2 liters of oxygen and Scheduled nebs Was given one time dose of Bumex 2 mg yesterday 07/05 Urine C/S from 07/03 positive for U-Coli sensitive to Levaquin Asked staff to work on increase bowel motivation with MOM, Miralax and Dulcolax supp Remains on dysphagia diet 07/06/2018-6:40 PM-I examined the patient independently. I reviewed this chart, the patient history, and the FEATHER STITCHER's/PA's documented findings as above. We discussed and formulated the assessment and plan as above with the additions below.-Dr. Schaeffer The patient was seen this evening in her room. I initially went in when she was eating her pured diet. She also had crackers on her plate and ate 2 of them before I could remove them. I did remove the other crackers. I let her finish eating and then returned later. Her nurse stated that she had had some chest discomfort this morning, she thought this was related to cough. Currently, the patient complains of neck pain but denies other pain. She has her covers on, even over her face and does not want to be uncovered. I did uncover her briefly to listen to her lungs which are clear anteriorly and she has a regular rate and rhythm on cardiac exam. Abdomen is soft and nontender. Extremities are free of edema. The patient is declining to answer any other questions. She was eating her food too quickly per nursing staff, and they try to encourage her to eat more slowly, which upset her. Impression and plan Acute hypoxic respiratory failure, likely related to aspiration. She has been on Levaquin for UTI. Will add clindamycin for possible aspiration pneumonia. She does have infiltrates on chest x-ray. Regarding UTI with Escherichia coli-she has had 3 days of Levaquin 750 mg. This should be adequate treatment and will discontinue. Acute on chronic hypoxic respiratory failure-currently on her usual 2 L of oxygen with good oxygenation Possibly home soon Continue sliding scale insulin for hyperglycemia on steroids. Will titrate steroids quickly Will add lactobacillus tablets DVT Prophylaxis: Lovenox GI Prophylaxis: Omeprazole Resuscitation Status: Do Not Resuscitate - Physician Narrative Narrative: Date: 07/06/18 Time: 908 Hospital Course Summary Disclaimer: The visit summary below is not to be considered part of the above Progress Note. Hospital Course: 07/06/18 Chest Xray this morning- pending Continues on 2 liters of oxygen and Scheduled nebs Was given one time dose of Bumex 2 mg yesterday 07/05 Urine C/S from 07/03 positive for U-Coli sensitive to Levaquin Asked staff to work on increase bowel motivation with MOM, Miralax and Dulcolax supp Remains on dysphagia diet
[2018-07-06] MEDS: QUETIAPINE 50 MG TABLET PO SCH ×2 (09:20→21:10)
[2018-07-06] MEDS: ENOXAPARIN 40 MG/0.4 ML INJECTION SQ SCH (09:20)
[2018-07-06] MEDS: CITALOPRAM 20 MG TABLET PO SCH (09:20)
[2018-07-06] MEDS: MULTI-VITAMIN + MINERAL TABLET PO SCH (09:20)
[2018-07-06] MEDS: POLYETHYL GLYCOL 3350 17gm PACKET PO SCH (09:21)
--- NOTE | 2018-07-06 15:50 | XRay Report ---
EXAM: XR chest 2V HISTORY: Hypoxia COMPARISON: Prior examination dated 07/05/2018 FINDINGS: The lung marin are hypoventilated. There are again noted bilateral heterogeneous infiltrates throughout both lung marin left greater than right. The heart is again noted to be mildly enlarged. The trachea is midline. There is prominence of the pulmonary vascularity. The costophrenic angles remain partially obscured suggesting trace bilateral pleural effusions. The bony thorax is stable. There is again noted calcified right axillary lymph node. IMPRESSION: 1. No significant interval change in the bilateral heterogeneous infiltrates, left greater than right. 2. Persistent trace bilateral pleural effusions. 3. Mild cardiomegaly, underlying mild congestive changes are not excluded. .
[2018-07-06] MEDS: LEVOFLOXACIN PB 750 MG/150 ML BAG IV SCH (17:06)
[2018-07-06] MEDS ORDERED: FALL RISK - PHARMACY CONSULT MC ONE (18:13)
[2018-07-06] MEDS: CLINDAMYCIN 300 MG CAPSULE PO SCH (21:09)
[2018-07-06] MEDS: ATORVASTATIN 10 MG TABLET PO SCH (21:09)
[2018-07-07] MEDS: ACETAMINOPHEN 325 MG TABLET PO SCH ×5 (00:15→16:45)
[2018-07-07] MEDS: LEVOTHYROXINE 125 MCG TABLET PO SCH (05:46)
[2018-07-07] MEDS: INSULIN ASPART 100unit/ml INJECTION SQ PRN ×2 (06:19→11:45)
[2018-07-07] MEDS: ALBUTEROL/IPRATROPIUM 2.5mg-0.5mg/3ml NEB AEROSOL SCH (07:05)
[2018-07-07] MEDS: BUDESONIDE INH.SOLN 0.5mg/2ml NEB AEROSOL SCH (07:05)
[2018-07-07] MEDS ORDERED: PredniSONE 20 MG TABLET PO SCH (08:00)
[2018-07-07 08:14] VITALS: BP 150/82; PULSE 87; RESP 20; TEMP 97.5; O2SAT 97
[2018-07-07] MEDS: MULTI-VITAMIN + MINERAL TABLET PO SCH (08:51)
[2018-07-07] MEDS: QUETIAPINE 50 MG TABLET PO SCH (08:51)
[2018-07-07] MEDS: LACTOBACILLUS (15B cfu) CAPSULE PO SCH ×2 (08:51→11:46)
[2018-07-07] MEDS: CLINDAMYCIN 300 MG CAPSULE PO SCH ×2 (08:51→16:45)
[2018-07-07] MEDS: POLYETHYL GLYCOL 3350 17gm PACKET PO SCH (08:52)
[2018-07-07] MEDS: ENOXAPARIN 40 MG/0.4 ML INJECTION SQ SCH (08:52)
[2018-07-07] MEDS: CITALOPRAM 20 MG TABLET PO SCH (08:52)
[2018-07-07] MEDS ORDERED: ALBUTEROL/IPRATROPIUM 2.5mg-0.5mg/3ml NEB AEROSOL SCH (09:00)
--- NOTE | 2018-07-07 14:38 | Extended Care Facility Orders ---
Admission Orders Admit to:: [facility] Allergies/Adverse Reactions: Allergies Penicillins Allergy (Mild, Verified 07/04/18 14:25) RASH cefuroxime Allergy (Unknown, Verified 07/04/18 14:25) Admitting Diagnosis: acute on chronic Hypoxia, Aspiration Pneumonia, UTI Admitting Physician: Jackeline Schaeffer MD Attending Physician: Jackeline Schaeffer MD Code Status: Do Not Resuscitate Anticiapted Length of Stay: greater than 30 days Rehab Potential: fair Rehab Prognosis: fair Diet: Pureed diet with thin liquids Per speech therapist: The pt is on the safest oral diet. Recommend using the following precautions with max cuein) Take small bites/sips at a slow rate 2) HOB at 90 degrees for all meals/snacks 3) Use a double swallow with purees 4) Oral care following meals/snacks Wound/Incision Care: n/a May use Facility Protocol or Standing Orders: Yes May have flu vaccine: Yes Evaluations/Treatment: Speech, as needed Assisted Certification: I certify that SNF services are required to be given on an inpatient basis because of the patient's need for longterm care on a continuing basis for the condition(s) for which he/she received inpatient hospital services prior to his/her transfer to the SNF. SNF inpatient care is necessary for the following reasons: - Additional Information In Event of Arrest: Do Not Start CPR Resident is Aware of Diagnosis: No (dementia) Referrals: Karena Haines MD [Primary Care Provider] - Additional Orders: O2 at 1-2 liters per nasal canula
--- NOTE | 2018-07-07 14:44 | Discharge Summary ---
Discharge Information Date of admission: 07/06/18 14:05 Anticipated date of discharge: 07/07/18 Attending Physician: Jackeline Schaeffer MD Primary care physician: Karena Haines MD - Discharge Diagnosis (1) Acute respiratory failure with hypoxia Status: Acute Acute on chronic hypoxic respiratory failure aspiration pneumonia UTI- E-coli- sensitive to Levaquin History of aspiration and known dysphagia-already on safest diet per speech therapy Diabetes Hypothyroidism History of hypertension Hypercholesterolemia Dementia/Schizoaffective d/o, MDD/JASMINA Parkinson's Constipation - Laboratory Labs: 07/05/18 01:48 07/07/18 03:41 Laboratory Tests 07/04/18 07/04/18 07/04/18 14:52 17:29 21:34 ABG pH ABG pCO2 ABG pO2 ABG HCO3 ABG Total CO2 ABG O2 Saturation ABG Base Excess Modified Yash Test O2 Delivery Method Hemoglobin A1c Troponin I 0.016 NT-Pro-B Natriuret Pep 1100 H Plasma Lactate 2.2 4.6 H* TSH Free T4 07/05/18 07/05/18 07/05/18 01:48 05:52 12:30 ABG pH ABG pCO2 ABG pO2 ABG HCO3 ABG Total CO2 ABG O2 Saturation ABG Base Excess Modified Yash Test O2 Delivery Method Hemoglobin A1c 6.5 H Troponin I NT-Pro-B Natriuret Pep Plasma Lactate 4.6 H* 3.2 H 5.3 H* TSH 0.13 L Free T4 1.06 07/05/18 07/05/18 18:05 21:25 ABG pH 7.460 H ABG pCO2 43 ABG pO2 71.6 L ABG HCO3 30.5 H ABG Total CO2 31.8 H ABG O2 Saturation 94.9 L ABG Base Excess 6.0 H Modified Yash Test Positive O2 Delivery Method Cannula Hemoglobin A1c Troponin I NT-Pro-B Natriuret Pep Plasma Lactate 3.8 H TSH Free T4 - Microbiology Microbiology 07/04/18 17:29 Peripheral/Iv Start Blood Culture - Preliminary No Growth After 2 Days 07/04/18 17:29 Peripheral/Iv Start Blood Culture - Preliminary No Growth After 2 Days Urine culture done on ER visit 07/03/2018 reveals Escherichia coli sensitive to Levaquin - Radiology Radiology: Chest x-ray 07/04/2018 shows stable bilateral airspace infiltrates and groundglass opacities are unchanged from 07/03/2018 Chest x-ray 07/05/2018 shows stable bilateral airspace opacities Chest x-ray 07/06/2018 IMPRESSION: 1. No significant interval change in the bilateral heterogeneous infiltrates, left greater than right. 2. Persistent trace bilateral pleural effusions. 3. Mild cardiomegaly, underlying mild congestive changes are not excluded. History of Present Illness HPI: 82-year-old female patient who resides at [facility] with history of aspiration pneumonia, diabetes, hypertension, COPD, hypothyroidism, dyslipidemia, dementia, Parkinson's, morbid obesity, schizoaffective disorder as well as major depressive disorder and generalized anxiety disorder. She was brought into the emergency room yesterday after choking on a piece a watermelon. The long term staff became quite concerned because of her history of aspiration pneumonia and brought her into the emergency room. She is on chronically 2 L of oxygen. She was increased to 4 L for adequate saturations. She was wheezing and was given breast Tory therapy. She was placed on levofloxacin orally for a seven-day course to treat aspiration pneumonia. She was dismissed back to the long term from the ER, only requiring 1 L at the time of discharge. She was brought back to the emergency room today. Apparently she was wheezing more today than yesterday. The emergency room physician did call her primary care physician who advised putting her into the hospital for further care. The patient was subsequently admitted and obsessed status. When seen by me again she told me she was here because she couldn't swallow and that she's had this problem before. I reminded her that she supposed to be on a pured diet and she tells me she would not eat that. It's that food gets stuck in her throat. When I asked her if she was more short of breath today than yesterday she replied no. She did tell me she was short of breath yesterday and that's why she came to the emergency room. She does report a cough with white sputum production but states that's been going on for months. She denied any fevers or chills. She does tell me she gets lightheaded at times particularly when walking with her walker. She tells me she only walks a minimal amount with a walker. She takes her wheelchair to the dining room and back. She denies chest pain or pressure. She denied palpitations. She denied any abdominal pain, nausea or vomiting, Constipation or diarrhea. She denies dysuria Objective Vital signs: Temperature 97.5 F 07/07/18 08:13 Pulse Rate 87 07/07/18 08:13 Respiratory Rate 20 07/07/18 08:13 Blood Pressure 150/82 H 07/07/18 08:13 Pulse Oximetry 97 07/07/18 11:00 Height/Weight/BMI: Height 1.6 m Weight 95.2 kg Body Mass Index 37.4 Comments: Afebrile, heart rate 87, respirations 20, blood pressure 150/82, O2 sat 97% on 1 L Weight is stable at 95.2 kg On exam the patient is alert and has just finished eating. She is wiping off her mouth with great deliberation. She admits to some chronic neck pain, but denies other pain. She will not answer any of my other questions. She appears in no distress. She did not cough during the time I was in her room. She seemed to be breathing comfortably. She is on 1 L of oxygen. Cardiovascular reveals a regular rate and rhythm. Chest reveals some mild crackles in the bases. Abdomen is soft and nontender. Extremities are free of edema. Skin is warm and dry and without rashes. Hospital Course This is a general summary of the patient's hospital course. For more details refer to the complete medical record. Hospital course: The patient was admitted on 07/04/2018 with wheezing and increased oxygen needs thought to be likely due to recent aspiration. She was started on IV Levaquin, breathing treatments and steroids. Chest x-rays were obtained and did not show any worsening during the hospital course. The patient's oxygen needs decreased during the hospital course. Speech therapy did see the patient and recommended continued pured diet and thin liquids. The patient has been eating and drinking well. On the day of discharge, she was on 1 L of oxygen and seemed to be breathing comfortably. She is chronically on 2 L of oxygen. On the day prior to discharge, the patient was started on clindamycin for possible aspiration pneumonia. She received a 3 day course of Levaquin 750 mg IV for UTI with Escherichia coli that was found on ER visit 07/03/2018 On 07/07/2018 it was felt patient was stable for dismissal back to her long term. She will continue on 1-2 L of oxygen per nasal cannula. She will continue with breathing treatments and clindamycin for aspiration. She was placed on lactobacillus for one week while she is on clindamycin. She will be on a short course of steroids. I did call and talk with Dr. Haines about hospital course and discharge plan. She plans follow-up with her soon at the long term. Time spent with patient: greater than 35 minutes Resuscitation Status: Do Not Resuscitate Discharge Plan - Discharge Disposition Discharge Date: 07/07/18 Disposition: 04 To [facility] Home/Facility *Condition: Improved Reason For Visit (Visit label in EMR): Hypoxia Aspiration Pneumonia - Discharge Medications *Discharge Medications: New Albuterol/Ipratropium [Duoneb] 3 ml AEROSOL BID each Clindamycin [Cleocin] 300 mg PO TID 5 Days #15 cap PredniSONE [Deltasone 20 mg] 20 mg PO WB 3 Days #3 tab Albuterol/Ipratropium [Duoneb] 3 ml AEROSOL Q2HR PRN each PRN Reason: Dyspnea Acidoph/L.bulg/Bif.b/S.thermop [Bacid Caplet] 2 cap PO TIDWM 7 Days #42 tab Continue Citalopram Hydrobromide [Celexa] 20 mg PO DAILY Furosemide [Lasix] 40 mg PO DAILY Multivitamin [One Daily] 1 tab PO DAILY Docusate Sodium 100 mg PO DAILY PRN PRN Reason: Constipation Atorvastatin [Lipitor] 10 mg PO HS Levothyroxine Tab [Synthroid] 125 mcg PO ACB Quetiapine Fumarate [Seroquel] 150 mg PO HS Quetiapine [Seroquel] 50 mg PO DAILY Potassium Chloride 20 meq PO DAILY RisperiDONE LA [RisperDAL Consta] 25 mg IM Q2WKS Acetaminophen 325 mg PO Q4HR #0 Omeprazole 20 mg PO DAILY PRN PRN Reason: Prn Orders Milk of Magnesia [Mom] 30 ml PO PRN PRN PRN Reason: Constipation Loperamide HCl [Imodium A-D] 4 mg PO TID PRN PRN Reason: Diarrhea Benztropine [Cogentin] 1 mg PO BID PRN PRN Reason: Prn Orders Discontinued Levofloxacin [Levaquin] 500 g PO DAILY - Discharge Packet/Instructions *Diet: Pureed diet with thin liquids. Per speech therapist: The pt is on the safest oral diet. Recommend using the following precautions with max cuein ) Take small bites/sips at a slow rate. 2) HOB at 90 degrees for all meals/ snacks. 3) Use a double swallow with purees. 4) Oral care following meals/ snacks *Activity: up with assist *Pain Management/Treatment: tylenol as needed *Wound Care: n/a Additional Instructions: O2 at 1-2 liters per nasal canula *Expected Signs/Symptoms: mild cough *Notify Physician if: increased O2 needs, fever, vomiting, altered mental status , worsening cough *During Business Hours Contact: call dr Haines's office *After Business Hours Contact: call [phone] Haines paged *Pending Lab/Results: No Pending Lab - Referrals/Follow Up *Referrals/Follow Up: Karena Haines MD [Primary Care Provider] - - Patient Handouts Patient Handouts: Aspiration Pneumonia (GEN), Hypoxia (GEN) - Dismissal Complete Discharge Instructions are:: Complete Physician Narrative - Narrative Attestation Narrative: Date: 07/07/18 Time: [id number]
== END 2018-07-07 16:55 | DRG 177 ==
LOC: EDHOLD 14:22 → ED 14:22 → SUATTDRO 17:22 → EDHOLD 18:05 → MED 18:05
PROVIDERS: ADMIT Internal Medicine Cardiovascular Disease; ATTEND Internal Medicine